=== PATIENT | male | born 1980 | race African-American/Black ===

== ENCOUNTER 2018-05-12 07:00 | Inpatient (IN) | payer SELFPAY ==
[2018-05-12] MEDS ORDERED: METHYLPREDNISOLONE INJ 125 MG/2 ML SDV ONE (07:14)
[2018-05-12] MEDS ORDERED: IPRATROPIUM/ALBUTEROL 0.5-2.5 MG/3 ML AMPUL NEB ONE ×3 (07:23)
[2018-05-12 07:41] LABS: ABSOLUTE EOSINOPHILS # (AUTO) 0.6 10^3/uL (0.0-0.6); ABSOLUTE MONOCYTES (AUTO) 0.6 10^3/uL (0.1-1.4); ABSOLUTE NEUT (AUTO) 2.5 10^3/uL (1.7-8.2); BASOPHILS % (AUTO) 0.8 % (0-2); EOSINOPHILS % (AUTO) 9.7 % (0-6); HEMATOCRIT 47.2 % (37.9-51.0); HEMOGLOBIN 15.9 g/dL (13.5-17.0); LYMPHOCYTES % (AUTO) 35.4 % (13-45); MEAN CORPUSCULAR HEMOGLOBIN 29.8 pg (27.0-33.4); MEAN CORPUSCULAR HGB CONC 33.7 g/dL (32.0-36.0); MEAN CORPUSCULAR VOLUME 89 fl (80-97); MONOCYTES % (AUTO) 10.1 % (3-13); PLATELET COUNT 218 10^3/uL (150-450); RED BLOOD COUNT 5.33 10^6/uL (4.35-5.55); RED CELL DISTRIBUTION WIDTH 13.7 % (11.5-14.0); TOTAL CELLS COUNTED % (AUTO) 100 %; WHITE BLOOD COUNT 5.7 10^3/uL (4.0-10.5)
[2018-05-12 08:04] LABS: ALANINE AMINOTRANSFERASE 20 U/L (21-72); ALKALINE PHOSPHATASE 52 U/L (38-126); ANION GAP 12 (5-19); ASPARTATE AMINO TRANSFERASE 54 U/L (17-59); BILIRUBIN,DIRECT 0.4 mg/dL (0.0-0.4); BILIRUBIN,TOTAL 0.6 mg/dL (0.2-1.3); BLOOD UREA NITROGEN 13 mg/dL (7-20); CALCIUM 9.6 mg/dL (8.4-10.2); CARBON DIOXIDE 26 mmol/L (22-30); CHLORIDE 108 mmol/L (98-107); GLUCOSE 91 mg/dL (75-110); POTASSIUM 4.4 mmol/L (3.6-5.0); SODIUM 145.6 mmol/L (137-145); TOTAL PROTEIN 8.3 g/dL (6.3-8.2)
[2018-05-12] MEDS ORDERED: ACETAMINOPHEN 325 MG TABLET PO ONE (08:10)
--- NOTE | 2018-05-12 08:13 | RADIOLOGY REPORT (SQ) ---
EXAM DESCRIPTION: CHEST SINGLE VIEW COMPLETED DATE/TIME: 05/12/2018 7:45 am REASON FOR STUDY: asthma COMPARISON: 04/02/2016 EXAM PARAMETERS: NUMBER OF VIEWS: One view. TECHNIQUE: Single frontal radiographic view of the chest acquired. RADIATION DOSE: NA LIMITATIONS: None. FINDINGS: LUNGS AND PLEURA: Mild hyperinflation of the lungs, unchanged finding. No opacities, mas ses or pneumothorax. No pleural effusion. MEDIASTINUM AND HILAR STRUCTURES: No masses. Contour normal. HEART AND VASCULAR STRUCTURES: Heart normal in size. Normal vasculature. BONES: No acute findings. HARDWARE: None in the chest. OTHER: No other significant finding. IMPRESSION: 1. No significant interval changes since the previous examination dated 04/02/2016. No acute findings. TECHNICAL DOCUMENTATION: JOB ID: [id number] [employer]- All Rights Reserved Reading location - IP/workstation name: [email or web address]
[2018-05-12] MEDS ORDERED: ALBUTEROL SULFATE 0.083% NEB 2.5 MG/3 ML AMPUL NEB ONE ×4 (08:21→12:41)
--- NOTE | 2018-05-12 11:32 | RADIOLOGY REPORT (SQ) ---
EXAM DESCRIPTION: CTA CHEST COMPLETED DATE/TIME: 05/12/2018 11:05 am REASON FOR STUDY: hypoxia, tachycardia COMPARISON: Chest films 05/12/2018, 04/02/2016, 01/25/2014 TECHNIQUE: CT scan of the chest performed using helical scanning technique with dynamic intravenous contrast injection. Images reviewed with lung, soft tissue and bone windows. Reconstructed coronal and sagittal MPR images reviewed. Additional 3 dimensional post-processing performed to develop Maximal Intensity Projection images (MT P). All images stored on PACS. All CT scanners at this facility use dose modulation, iterative reconstruction, and/or weight based d osing when appropriate to reduce radiation dose to as low as reasonably achievable (ALARA). [facility]: Dose Right [facility]: CareDose [facility]: Dose Right [facility]: Teradose 4D [facility]: [employer] CONTRAST TYPE AND DOSE: contrast/concentration: Isovue 350.00 mg/ml; Total Contrast Delivered: 68.0 ml; Total Saline Delivered: 103.0 ml Contrast bolus optimized for the pulmonary arteries and aorta. RENAL FUNCTION: None required. The patient is less than 50 years old. RADIATION DOSE: CT Rad equipment meets quality standard of care and radiation dose reduction techniq ues were employed. CTDIvol: 14.3 - 19.8 mGy. DLP: 599 mGy-cm. . LIMITATIONS: None. FINDINGS: LUNGS AND PLEURA: No masses, infiltrates, or pneumothorax. No pleural effusions or pleura l calcifications. AORTA AND GREAT VESSELS: No aneurysm or thoracic aortic dissection. HEART: No pericardial effusion. No significant coronary artery calcifications. PULMONARY ARTERIES: No emboli visualized in the main pulmonary arteries or the segmental branches. HILAR AND MEDIASTINAL STRUCTURES: No identified masses or abnormal nodes. HARDWARE: None in the chest. UPPER ABDOMEN: Question tiny bilateral intrarenal nonobstructive kidney stones. . Limited exam. THYROID AND OTHER SOFT TISSUES: No masses. No adenopathy. BONES: No acute or significant finding. 3D MIPS: Confirm above findings. OTHER: No other significant finding. IMPRESSION: NORMAL CTA OF THE CHEST. NO PULMONARY EMBOLI. COMMENT: Quality ID # [id number]: Final reports with documentation of one or more dose reduction techniques (e.g., Automated exposure control, adjustment of the mA and/or kV according to patient size, use of iterative reconstruction technique) TECHNICAL DOCUMENTATION: JOB ID: [id number])- All Rights Reserved Reading location - IP/workstation name: [email or web address]
--- NOTE | 2018-05-12 13:00 | ER Document Report ---
Entered by MELISSA HUGHES SCRIBE 05/12/18 0716 Acting as scribe for:LUIGI MATTHEWS DO ED Respiratory Problem - General Chief Complaint: Shortness Of Breath Stated Complaint: SOB Time Seen by Provider: 05/12/18 07:00 Notes: 38-year-old male who presents to the emergency department today with complaints of asthma exacerbation. Patient states he has had to be intubated in the past for asthma. Patient states that he began having difficulty breathing x1-2 weeks ago. Patient states his shortness of breath has progressed since onset to the point that the patient has been using his nebulizer about every 30 minutes at home. Patient states he has a slight cough but denies fevers. TRAVEL OUTSIDE OF THE [place] IN LAST 30 DAYS: No - Related Data Allergies/Adverse Reactions: venom-wasp [Wasp Venom] Allergy (Verified 05/12/18 07:01) cats Allergy (Uncoded 05/12/18 07:01) lactose intolerant Allergy (Uncoded 05/12/18 07:01) Past Medical History - General Information source: Patient - Social History Smoking Status: Current Every Day Smoker Cigarette use (# per day): Yes Frequency of alcohol use: Social Lives with: Family Family History: Reviewed & Not Pertinent Pulmonary Medical History: Reports: Hx Asthma - Immunizations Hx Diphtheria, Pertussis, Tetanus Vaccination: Yes Review of Systems - Review of Systems Constitutional: No symptoms reported EENT: No symptoms reported Cardiovascular: No symptoms reported Respiratory: See HPI, Short of breath, Wheezing Gastrointestinal: No symptoms reported Genitourinary: No symptoms reported Male Genitourinary: No symptoms reported Musculoskeletal: No symptoms reported Skin: No symptoms reported Hematologic/Lymphatic: No symptoms reported Neurological/Psychological: No symptoms reported -: Yes All other systems reviewed and negative Physical Exam - Vital signs Vitals: Resp BP Pulse Ox 23 H 119/86 H 94 05/12/18 08:57 05/12/18 08:57 05/12/18 08:57 - Notes Notes: PHYSICAL EXAM GENERAL: Alert, interacts well. Moderate distress. Pulse oximeter at bedside shows saturation of 93% with good waveform on room air, mild hypoxia per my interpretation. HEAD: Normocephalic, atraumatic. EYES: Pupils equal, round, and reactive to light. Extraocular movements intact. ENT: Oral mucosa moist, tongue midline. NECK: Full range of motion. Supple. Trachea midline. LUNGS: Diffuse expiratory wheezing bilaterally. Tripoding. Moderate respiratory distress. Decreased air movement throughout. HEART: Regular rate and rhythm. No murmurs, gallops, or rubs. ABDOMEN: Soft, non-tender. Non-distended. Bowel sounds present in all 4 quadrants. No guarding, rigidity, or rebound. EXTREMITIES: Moves all 4 extremities spontaneously. No edema, radial and dorsalis pedis pulses 2/4 bilaterally. No cyanosis. NEUROLOGICAL: Alert and oriented x3. Normal speech. PSYCH: Normal affect, normal mood. SKIN: Warm, dry, normal turgor. No rashes or lesions noted. Course - Re-evaluation Re-evalutation: 05/12/18 08:21 Patient is improved, no longer tripoding, still has some accessory muscle use for respirations, patient now has slight audible wheezing while just sitting there, there is diffuse expiratory wheezing with significantly improved air movement. Patient has received steroids and 3 breathing treatments, 3 more albuterol will be given, chest x-ray shows no significant interval change. 05/12/18 09:57 Wheezing has resolved. Patient saturating 90-92% on room air while sitting, hypoxic. Will order CTA. 05/12/18 12:46 CBC unremarkable, CMP unremarkable, chest x-ray shows no acute process. CTA of the chest is negative for PE or other acute finding. Patient was ambulated around the emergency department and now had an oxygen saturation of 94% while walking around the department. Approximately 20 minutes after he sat down walking around the emergency department patient then had a recurrence of his wheezing, is feeling worse, after recheck patient does indeed have more wheezing, he is no longer tripoding but he is returning to having some accessory muscle use. He is saturating 97% on room air, mildly tachypneic. Patient is going to be placed on BiPAP, given another breathing treatment. Patient was discussed with Dr. Ramirez for the hospitalist who accepted the patient to his service for admission on the telemetry care unit. Patient has also been given steroids. 05/12/18 17:15 - Vital Signs Vital signs: Temp Pulse Resp BP Pulse Ox 98.0 F 20 152/99 H 98 05/12/18 12:30 05/12/18 14:49 05/12/18 11:02 05/12/18 14:49 - Laboratory Result Diagrams: 05/12/18 07:15 05/12/18 07:15 Laboratory results interpreted by me: 05/12/18 05/12/18 07:15 07:15 Eosinophils % 9.7 H Sodium 145.6 H Chloride 108 H ALT 20 L Total Protein 8.3 H Critical Care Note - Critical Care Note Total time excluding time spent on procedures (mins): 65 Discharge - Discharge Clinical Impression: Acute respiratory failure with hypoxia Acute asthma exacerbation Qualifiers: Asthma severity: moderate Asthma persistence: persistent Qualified Code(s): J45.41 - Moderate persistent asthma with (acute) exacerbation Condition: Fair Disposition: ADMITTED INPATIENT Admitting Provider: Hospitalist - [facility] Unit Admitted: Telemetry I personally performed the services described in the documentation, reviewed and edited the documentation which was dictated to the scribe in my presence, and it accurately records my words and actions.
[2018-05-12] MEDS ORDERED: ONDANSETRON HCL INJ/PF 4 MG/2 ML SDV IV PRN (14:10)
[2018-05-12] MEDS ORDERED: LEVALBUTEROL HCL NEB 0.63 MG/3 ML AMPUL NEB PRN (14:10)
[2018-05-12] MEDS ORDERED: ACETAMINOPHEN 325 MG TABLET PO PRN (14:10)
[2018-05-12] MEDS ORDERED: HYDRALAZINE HCL INJ/PF 20 MG/1 ML SDV IV PRN (14:26)
--- NOTE | 2018-05-12 14:26 | PDOC H&P ---
History of Present Illness Admission Date/PCP: 05/12/18 13:10 Patient complains of: Shortness of breath and wheezing History of Present Illness: LUPE [place] is a 38 year old male history of asthma, hypertension came to the emergency room with worsening of shortness of breath. According to the family members patient is having the shortness of breath for the last several days he is using nebulizers and inhalers with increased frequency but is not helping him this morning shortness of breath wheezing getting even worse decided to came to the emergency room for further evaluation. In the emergency room he was evaluated and given a nebulizer treatments initially wheezing is resolved within half an hour wheezing came back again he was placed on BiPAP to give some rest of the lungs and medical consult was requested for admission. I went to talk to the patient and family members patient is complaining of shortness of breath wheezing. Complains of cold with coughing up greenish sputum. Denies any fevers denies any nausea vomiting diarrhea denies any headaches dizzy spells. Denies any rashes on the body. Past Medical History Cardiac Medical History: Reports: Hypertension Denies: Congestive Heart Failure, DVT, Myocardial Infarction, Hyperlipidema, Pulmonary Embolism Pulmonary Medical History: Reports: Asthma Denies: Chronic Obstructive Pulmonary Disease (COPD) Neurological Medical History: Denies: Seizures Endocrine Medical History: Denies: Diabetes Mellitus Type 1, Diabetes Mellitus Type 2, Hyperthyroidism, Hypothyroidism GI Medical History: Denies: Cirrhosis, Gastroesophageal Reflux Disease, Hepatitis Musculoskeltal Medical History: Denies: Arthritis Skin Medical History: Denies: Eczema, Psoriasis Psychiatric Medical History: Denies: Depression Past Surgical History Past Surgical History: Reports: Other - Removal of benign mass from the throat. Social History Lives with: Family Smoking Status: Current Every Day Smoker Frequency of Alcohol Use: Occasional Hx Recreational Drug Use: No Drugs: Marijuana Hx Prescription Drug Abuse: No - Advance Directive Resuscitation Status: Full Code Family History Family History: Reviewed & Not Pertinent Parental Family History Reviewed: Yes - Family history of asthma and hypertension. Children Family History Reviewed: Yes Sibling(s) Family History Reviewed.: Yes Medication/Allergy Allergies/Adverse Reactions: venom-wasp [Wasp Venom] Allergy (Verified 05/12/18 07:01) cats Allergy (Uncoded 05/12/18 07:01) lactose intolerant Allergy (Uncoded 05/12/18 07:01) Review of Systems Constitutional: ABSENT: fatigue, fever(s), headache(s), night sweats, weakness Eyes: ABSENT: visual disturbances Ears: ABSENT: hearing changes Nose, Mouth, and Throat: ABSENT: sore throat Cardiovascular: ABSENT: chest pain, dyspnea on exertion, edema, orthropnea, palpitations Respiratory: PRESENT: cough, dyspnea, sputum Gastrointestinal: ABSENT: abdominal pain, constipation, diarrhea, hematemesis, hematochezia, nausea, vomiting Musculoskeletal: ABSENT: joint swelling Neurological: ABSENT: abnormal gait, abnormal speech, confusion, dizziness, focal weakness, syncope Physical Exam Vital Signs: Temp Pulse Resp BP Pulse Ox 98.0 F 16 152/99 H 94 05/12/18 12:30 05/12/18 11:03 05/12/18 11:02 05/12/18 11:03 Intake & Output 05/11/18 05/12/18 05/13/18 06:59 06:59 06:59 Weight 68.039 kg General appearance: PRESENT: mild distress Eye exam: PRESENT: PERRLA Mouth exam: PRESENT: dry mucosa Neck exam: ABSENT: carotid bruit, JVD, lymphadenopathy, thyromegaly Respiratory exam: PRESENT: decreased breath sounds, wheezes Cardiovascular exam: PRESENT: tachycardia Pulses: PRESENT: normal dorsalis pedis pul GI/Abdominal exam: PRESENT: normal bowel sounds, soft. ABSENT: distended, guarding, mass, organolmegaly, rebound, tenderness Neurological exam: PRESENT: alert, awake, oriented to person, oriented to place, oriented to time, oriented to situation, CN II-XII grossly intact. ABSENT: motor sensory deficit Psychiatric exam: PRESENT: appropriate affect, normal mood. ABSENT: homicidal ideation, suicidal ideation Results Laboratory Results: 05/12/18 07:15 05/12/18 07:15 05/12/18 05/12/18 07:15 07:15 WBC 5.7 RBC 5.33 Hgb 15.9 Hct 47.2 MCV 89 MCH 29.8 MCHC 33.7 RDW 13.7 Plt Count 218 Seg Neutrophils % 44.0 Lymphocytes % 35.4 Monocytes % 10.1 Eosinophils % 9.7 H Basophils % 0.8 Absolute Neutrophils 2.5 Absolute Lymphocytes 2.0 Absolute Monocytes 0.6 Absolute Eosinophils 0.6 Absolute Basophils 0.0 Sodium 145.6 H Potassium 4.4 Chloride 108 H Carbon Dioxide 26 Anion Gap 12 BUN 13 Creatinine 1.20 Est GFR ( Amer) > 60 Est GFR (Non-Af Amer) > 60 Glucose 91 Calcium 9.6 Total Bilirubin 0.6 AST 54 ALT 20 L Alkaline Phosphatase 52 Total Protein 8.3 H Albumin 5.0 Impressions: Chest X-Ray 05/12/18 07:23 IMPRESSION: 1. No significant interval changes since the previous examination dated 04/02/2016. No acute findings. Chest/Abdomen CTA 05/12/18 09:56 IMPRESSION: NORMAL CTA OF THE CHEST. NO PULMONARY EMBOLI. Assessment & Plan - Diagnosis (1) Acute respiratory failure with hypoxia Is this a current diagnosis for this admission?: Yes Plan: 05/12/2018-patient is admitted with acute respiratory failure with hypoxia. In the emergency room he came in with shortness of breath tripoding using the accessory muscles for respiration and extensive wheezing. With nebulizer treatments pulse ox was improved to 90-92% on room air. CT was negative for PE. Medical consult was called for admission. Plan is to put him in telemetry. Started on IV Solu-Medrol 40 mg every 8 hours, Xopenex nebulizations ipratropium nebulizations. Nicotine patch was started. Patient is going to be on BiPAP as needed. We are going to do the ABG today ABG on daily basis. GI prophylaxis and DVT prophylaxis was started. History nicotine patch 21 mg daily. Started on levofloxacin 750 mg IV daily because the patient is complaining of cold with coughing up greenish sputum. CT of the chest was negative for pneumonia or PE. (2) Acute asthma exacerbation Qualifiers: Asthma severity: moderate Asthma persistence: persistent Qualified Code(s): J45.41 - Moderate persistent asthma with (acute) exacerbation Is this a current diagnosis for this admission?: Yes Plan: 05/12/2018 patient was admitted with acute asthma exacerbation, he tried to use th e nebulizers and inhalers with increased frequency at home without any help etc. came to the emergency room for further evaluation. As per the patient family uses albuterol inhaler and Symbicort at home. Plan is to put him on IV steroids 40 mg every 8 hours, ipratropium nebulizations and Xopenex nebulizations were started. Plan to do the ABG today. (3) Tobacco dependency Is this a current diagnosis for this admission?: Yes Plan: 05/12/2018 patient has a chronic history of tobacco smoking and also smokes weed. Smoking counseling and provided for more than 10 minutes strongly advised to quit smoking. Patient was advised to stop smoking weed. (4) Hypertension Is this a current diagnosis for this admission?: Yes Plan: 03/11/2019 patient has history of hypertension is noncompliant with his medications blood pressure today in the emergency room 152/99. Plan is to start him on lisinopril 10 mg p.o. twice daily. To be placed on a cardiac diet. - Time Time Spent: 50 to 70 Minutes Smoking Cessation Education: over 10 minutes Medications reviewed and adjusted accordingly: Yes Anticipated discharge: Home
[2018-05-12] MEDS: LEVOFLOXACIN 750 MG/D5W RTU 750 MG/150 ML RTUPB IV SCH (16:05)
[2018-05-12] MEDS: IPRATROPIUM/ALBUTEROL 0.5-2.5 MG/3 ML AMPUL NEB PRN ×2 (16:09→23:50)
[2018-05-12 16:15] LABS: CREATINE KINASE MB 4.49 ng/mL (<4.55)
[2018-05-12 16:22] LABS: TROPONIN I < 0.012 ng/mL
[2018-05-12] MEDS ORDERED: HYDRALAZINE HCL INJ/PF 20 MG/1 ML SDV ONE ×2 (17:49→18:21)
[2018-05-12] MEDS: HYDRALAZINE HCL INJ/PF 20 MG/1 ML SDV IV PRN (18:34)
[2018-05-12] MEDS ORDERED: ACETAMINOPHEN 325 MG TABLET ONE (19:06)
[2018-05-12] MEDS: FAMOTIDINE 20 MG TABLET PO SCH (21:54)
[2018-05-12] MEDS: LISINOPRIL 10 MG TABLET PO SCH (21:54)
[2018-05-12] MEDS: DOCUSATE SODIUM 100 MG CAPSULE PO SCH (21:54)
[2018-05-12] MEDS: METHYLPREDNISOLONE INJ 40 MG/1 ML SDV IV SCH (21:55)
[2018-05-12] MEDS ORDERED: TEMAZEPAM 7.5 MG CAPSULE PO SCH (22:00)
[2018-05-12 22:08] LABS: CREATINE KINASE MB 5.84 ng/mL (<4.55)
[2018-05-12 22:11] LABS: TROPONIN I < 0.012 ng/mL
[2018-05-13] MEDS: HYDRALAZINE HCL INJ/PF 20 MG/1 ML SDV IV PRN (02:26)
[2018-05-13 04:30] LABS: ABSOLUTE LYMPHOCYTES (AUTO) 0.8 10^3/uL (0.5-4.7); ABSOLUTE MONOCYTES (AUTO) 0.4 10^3/uL (0.1-1.4); ABSOLUTE NEUT (AUTO) 9.7 10^3/uL (1.7-8.2); BASOPHILS % (AUTO) 0.1 % (0-2); HEMATOCRIT 44.8 % (37.9-51.0); HEMOGLOBIN 15.3 g/dL (13.5-17.0); LYMPHOCYTES % (AUTO) 7.3 % (13-45); MEAN CORPUSCULAR HEMOGLOBIN 29.9 pg (27.0-33.4); MEAN CORPUSCULAR HGB CONC 34.2 g/dL (32.0-36.0); MEAN CORPUSCULAR VOLUME 88 fl (80-97); MONOCYTES % (AUTO) 3.4 % (3-13); PLATELET COUNT 232 10^3/uL (150-450); RED BLOOD COUNT 5.12 10^6/uL (4.35-5.55); RED CELL DISTRIBUTION WIDTH 13.9 % (11.5-14.0); SEGMENTED NEUTROPHILS % (AUTO) 89.2 % (42-78); TOTAL CELLS COUNTED % (AUTO) 100 %; WHITE BLOOD COUNT 10.9 10^3/uL (4.0-10.5)
[2018-05-13 04:34] LABS: INTERNATIONAL RATION (INR) 0.99; PROTHROMBIN TIME 13.6 SEC (11.4-15.4)
[2018-05-13 04:51] LABS: ALANINE AMINOTRANSFERASE 33 U/L (21-72); ALBUMIN 4.9 g/dL (3.5-5.0); ALKALINE PHOSPHATASE 53 U/L (38-126); ANION GAP 12 (5-19); ASPARTATE AMINO TRANSFERASE 29 U/L (17-59); BILIRUBIN,DIRECT 0.2 mg/dL (0.0-0.4); BILIRUBIN,TOTAL 0.5 mg/dL (0.2-1.3); BLOOD UREA NITROGEN 14 mg/dL (7-20); CALCIUM 10.2 mg/dL (8.4-10.2); CARBON DIOXIDE 25 mmol/L (22-30); CHLORIDE 105 mmol/L (98-107); CHOLESTEROL 217.64 mg/dL (0-200); CREATINE KINASE 440 U/L (55-170); GLUCOSE 114 mg/dL (75-110); POTASSIUM 4.3 mmol/L (3.6-5.0); SODIUM 141.5 mmol/L (137-145); TOTAL PROTEIN 7.6 g/dL (6.3-8.2); TRIGLYCERIDES 34 mg/dL (<150)
[2018-05-13 05:02] LABS: DIRECT LDL 115 mg/dL (<100)
[2018-05-13 05:03] LABS: CREATINE KINASE MB 6.82 ng/mL (<4.55); NT PRO BNP 39 pg/mL (<125)
[2018-05-13 05:12] LABS: TROPONIN I < 0.012 ng/mL
[2018-05-13 06:15] LABS: ARTERIAL BLOOD BASE EXCESS 0.7 mmol/L; ARTERIAL BLOOD FIO2 30%; ARTERIAL BLOOD H2CO3 1.24 mmol/L (1.05-1.35); ARTERIAL BLOOD HCO3 25.4 mmol/L (20-24); ARTERIAL BLOOD PCO2 41.2 mmHg (35-45); ARTERIAL BLOOD PH 7.41 (7.35-7.45); ARTERIAL BLOOD PO2 91.3 mmHg (80-100); ARTERIAL BLOOD TOTAL CO2 26.7 mmol/L (23-27)
[2018-05-13] MEDS: METHYLPREDNISOLONE INJ 40 MG/1 ML SDV IV SCH ×2 (06:19→15:56)
[2018-05-13] MEDS ORDERED: ENOXAPARIN SODIUM INJ 40 MG/0.4 ML DISP.SYRIN SUBCUT SCH (10:00)
[2018-05-13] MEDS ORDERED: NICOTINE 21 MG/24 HR PATCH.TD24 TD SCH (10:00)
[2018-05-13] MEDS: IPRATROPIUM/ALBUTEROL 0.5-2.5 MG/3 ML AMPUL NEB PRN (11:24)
[2018-05-13] MEDS: LISINOPRIL 10 MG TABLET PO SCH (11:36)
[2018-05-13] MEDS: FAMOTIDINE 20 MG TABLET PO SCH (11:36)
[2018-05-13] MEDS: LEVOFLOXACIN 750 MG/D5W RTU 750 MG/150 ML RTUPB IV SCH (11:37)
[2018-05-13] MEDS: DOCUSATE SODIUM 100 MG CAPSULE PO SCH (11:37)
[2018-05-13 17:08] VITALS: BP 135/87
--- NOTE | 2018-05-13 17:33 | PDOC DISCHARGE SUMMARY ---
General - Admit/Disc Date/PCP Admission Date/Primary Care Provider: 05/12/18 13:10 Discharge Date: 05/13/18 - Discharge Diagnosis (1) Acute respiratory failure with hypoxia Is this a current diagnosis for this admission?: Yes Summary: 05/12/2018-patient is admitted with acute respiratory failure with hypoxia. In the emergency room he came in with shortness of breath tripoding using the accessory muscles for respiration and extensive wheezing. With nebulizer treatments pulse ox was improved to 90-92% on room air. CT was negative for PE. Medical consult was called for admission. Plan is to put him in telemetry. Started on IV Solu-Medrol 40 mg every 8 hours, Xopenex nebulizations ipratropium nebulizations. Nicotine patch was started. Patient is going to be on BiPAP as needed. We are going to do the ABG today ABG on daily basis. GI prophylaxis and DVT prophylaxis was started. History nicotine patch 21 mg daily. Started on levofloxacin 750 mg IV daily because the patient is complaining of cold with coughing up greenish sputum. CT of the chest was negative for pneumonia or PE. 05/[id number]-zorz-old male admitted with acute respiratory failure with hypoxia. It is most likely secondary to asthma exacerbation which may be triggered by upper respiratory tract infection. Patient was a came and complained that he is coughing up greenish sputum. Cultures came back positive for gram-positive cocci in clusters. Patient is presently on levofloxacin 500 mg p.o. daily. Patient states he is feeling much better expressing desire to go home. Explained to him that he need to stay at least one day to get continuous IV steroid therapy and antibiotic therapy but patient understood and verbalized response and wants to go home today. Nurse Chavez tried to convince him to stay but the patient preferred to go home. (2) Acute asthma exacerbation Is this a current diagnosis for this admission?: Yes Summary: 05/12/2018 patient was admitted with acute asthma exacerbation, he tried to use the nebulizers and inhalers with increased frequency at home without any help etc. came to the emergency room for further evaluation. As per the patient family uses albuterol inhaler and Symbicort at home. Plan is to put him on IV steroids 40 mg every 8 hours, ipratropium nebulizations and Xopenex nebul izations were started. Plan to do the ABG today. 05/[id number]-zhjp-old male admitted for acute asthma exacerbation leading to acute respiratory failure with hypoxia. Exacerbation of asthma most likely secondary to upper respiratory tract infection. Nurse logan and me tried to convince him to stay for at least another day but the patient prefers to go home today on antibiotic therapy. Patient understood and verbalized response that without completing the medical therapy there is a high risk of asthma exacerbation and he have to come back to the hospital for further management ,he understood the risks and still prefers to go home. (3) Tobacco dependency Is this a current diagnosis for this admission?: Yes Summary: [id number]-patient is a chronic smoker again smoking counseling was provided for more than 10 minutes and nicotine patches were offered but he said he cannot afford them. Strongly advised him to quit smoking. (4) Hypertension Is this a current diagnosis for this admission?: Yes Summary: 05/12/2018 patient has history of hypertension is noncompliant with his medications blood pressure today in the emergency room 152/99. Plan is to start him on lisinopril 10 mg p.o. twice daily. To be placed on a cardiac diet. 05/13/2018-patient has history of hypertension noncompliant with medications blood pressures are elevated at the time of admission he was started on lisinopril 10 mg p.o. twice daily blood pressure today he is 119/72. I gave him the prescriptions for lisinopril and hydrochlorothiazide. - Additional Information Resuscitation Status: Full Code Discharge Diet: As Tolerated Discharge Activity: Activity As Tolerated Prescriptions: Albuterol Sulfate [Ventolin 0.083% Neb 2.5 mg/3 mL Ampul] 1 vial NEB RTQ4HP PRN #30 vial.neb PRN Reason: For Wheezing Albuterol Sulfate [Ventolin Hfa 8 gm Mdi (1 Mdi/ER Disp)] 2 puff IH Q4HP PRN #1 inhaler PRN Reason: For Wheezing Budesonide/Formoterol Fumarate [Symbicort Hfa 160-4.5 Mcg Inhaler 6 gm] 2 puff IH Q12 #1 inhaler Hydrochlorothiazide [Hydrodiuril 25 mg Tablet] 25 mg PO DAILY #30 tablet Lisinopril [Prinivil 10 mg Tablet] 10 mg PO Q12 #60 tablet Prednisone 10 mg PO BID #10 tab.ds.pk Home Medications: Albuterol Sulfate [Ventolin 0.083% Neb 2.5 mg/3 mL Ampul] 1 vial NEB RTQ4HP PRN #30 vial.neb 05/13/18 Albuterol Sulfate [Ventolin Hfa 8 gm Mdi (1 Mdi/ER Disp)] 2 puff IH Q4HP PRN #1 inhaler 05/13/18 Budesonide/Formoterol Fumarate [Symbicort Hfa 160-4.5 Mcg Inhaler 6 gm] 2 puff IH Q12 #1 inhaler 05/13/18 Hydrochlorothiazide [Hydrodiuril 25 mg Tablet] 25 mg PO DAILY #30 tablet 05/13/18 Lisinopril [Prinivil 10 mg Tablet] 10 mg PO Q12 #60 tablet 05/13/18 Prednisone 10 mg PO BID #10 tab.ds.pk 05/13/18 History of Present Illness History of Present Illness: LU[place] is a 38 year old male history of asthma, hypertension came to the emergency room with worsening of shortness of breath. According to the family members patient is having the shortness of breath for the last several days he is using nebulizers and inhalers with increased frequency but is not helping him this morning shortness of breath wheezing getting even worse decided to came to the emergency room for further evaluation. In the emergency room he was evaluated and given a nebulizer treatments initially wheezing is resolved within half an hour wheezing came back again he was placed on BiPAP to give some rest of the lungs and medical consult was requested for admission. I went to talk to the patient and family members patient is complaining of shortness of breath wheezing. Complains of cold with coughing up greenish sputum. Denies any fevers denies any nausea vomiting diarrhea denies any headaches dizzy spells. Denies any rashes on the body. Physical Exam Vital Signs: Temp Pulse Resp BP Pulse Ox 97.9 F 106 H 16 135/87 H 96 05/13/18 15:10 05/13/18 15:10 05/13/18 15:10 05/13/18 15:10 05/13/18 15:10 Intake & Output 05/12/18 05/13/18 05/14/18 06:59 06:59 06:59 Intake Total 150 400 Balance 150 400 Weight 68 kg General appearance: PRESENT: no acute distress Head exam: PRESENT: atraumatic Eye exam: PRESENT: PERRLA Mouth exam: PRESENT: dry mucosa Respiratory exam: PRESENT: decreased breath sounds, wheezes Cardiovascular exam: PRESENT: tachycardia GI/Abdominal exam: PRESENT: normal bowel sounds, soft. ABSENT: distended, guarding, mass, organolmegaly, rebound, tenderness Extremities exam: PRESENT: full ROM. ABSENT: calf tenderness, clubbing, pedal edema Neurological exam: PRESENT: alert, awake, oriented to person, oriented to place, oriented to time, oriented to situation, CN II-XII grossly intact. ABSENT: motor sensory deficit Psychiatric exam: PRESENT: appropriate affect, normal mood. ABSENT: homicidal ideation, suicidal ideation Results Laboratory Results: 05/13/18 03:45 05/13/18 03:45 05/13/18 05/13/18 05/13/18 03:45 03:45 03:45 WBC 10.9 H RBC 5.12 Hgb 15.3 Hct 44.8 MCV 88 MCH 29.9 MCHC 34.2 RDW 13.9 Plt Count 232 Seg Neutrophils % 89.2 H Lymphocytes % 7.3 L Monocytes % 3.4 Eosinophils % 0.0 Basophils % 0.1 Absolute Neutrophils 9.7 H Absolute Lymphocytes 0.8 Absolute Monocytes 0.4 Absolute Eosinophils 0.0 Absolute Basophils 0.0 Carbonic Acid HCO3/H2CO3 Ratio ABG pH ABG pCO2 ABG pO2 ABG HCO3 ABG O2 Saturation ABG Base Excess FiO2 Sodium 141.5 Potassium 4.3 Chloride 105 Carbon Dioxide 25 Anion Gap 12 BUN 14 Creatinine 1.03 Est GFR ( Amer) > 60 Est GFR (Non-Af Amer) > 60 Glucose 114 H Calcium 10.2 Magnesium 2.0 Total Bilirubin 0.5 AST 29 ALT 33 Alkaline Phosphatase 53 Total Protein 7.6 Albumin 4.9 Triglycerides 34 Cholesterol 217.64 H LDL Cholesterol Direct 115 H VLDL Cholesterol 7.0 L HDL Cholesterol 83 TSH 0.50 05/13/18 05:50 WBC RBC Hgb Hct MCV MCH MCHC RDW Plt Count Seg Neutrophils % Lymphocytes % Monocytes % Eosinophils % Basophils % Absolute Neutrophils Absolute Lymphocytes Absolute Monocytes Absolute Eosinophils Absolute Basophils Carbonic Acid 1.24 HCO3/H2CO3 Ratio 20:1 ABG pH 7.41 ABG pCO2 41.2 ABG pO2 91.3 ABG HCO3 25.4 H ABG O2 Saturation 97.0 ABG Base Excess 0.7 FiO2 30% Sodium Potassium Chloride Carbon Dioxide Anion Gap BUN Creatinine Est GFR ( Amer) Est GFR (Non-Af Amer) Glucose Calcium Magnesium Total Bilirubin AST ALT Alkaline Phosphatase Total Protein Albumin Triglycerides Cholesterol LDL Cholesterol Direct VLDL Cholesterol HDL Cholesterol TSH 05/12/18 05/12/18 05/12/18 15:30 15:30 21:20 Creatine Kinase 443 H 370 H CK-MB (CK-2) 4.49 Troponin I < 0.012 NT-Pro-B Natriuret Pep 05/12/18 05/13/18 05/13/18 21:20 03:45 03:45 Creatine Kinase 440 H CK-MB (CK-2) 5.84 H 6.82 H Troponin I < 0.012 < 0.012 NT-Pro-B Natriuret Pep 39 Impressions: Chest X-Ray 05/12/18 07:23 IMPRESSION: 1. No significant interval changes since the previous examination dated 04/02/2016. No acute findings. Chest/Abdomen CTA 05/12/18 09:56 IMPRESSION: NORMAL CTA OF THE CHEST. NO PULMONARY EMBOLI. Qualifiers - * PATIENT BEING DISCHARGED WITH ANY OF THE FOLLOWING DIAGNOSIS: No VTE patient discharged on overlapping Therapy?: No
== END 2018-05-13 19:20 | disposition home or self-care (01) | DRG 202 ==
LOC: ER 07:00 → EH 13:10 → 5 19:50
PROVIDERS: ADMIT Internal Medicine; ATTEND Internal Medicine
PROC: 5A09357 Assistance with Respiratory Ventilation, Less than 24 Consecutive Hours, Continuous Positive Airway Pressure (ICD-10-PCS; principal; 2018-05-12)
PROC: 3E0F3GC Introduction of Other Therapeutic Substance into Respiratory Tract, Percutaneous Approach (ICD-10-PCS; 2018-05-12)
DX: J45.41 Moderate persistent asthma with (acute) exacerbation (principal); J96.01 Acute respiratory failure with hypoxia; I10 Essential (primary) hypertension; J06.9 Acute upper respiratory infection, unspecified; F17.210 Nicotine dependence, cigarettes, uncomplicated; Z91.038 Other insect allergy status; Z91.011 Allergy to milk products; Z91.09 Other allergy status, other than to drugs and biological substances
CPT/HCPCS: 36415; 71045; 71275; 80053; 80061; 82550; 82553; 82803; 83036; 83735; 83880; 84443; 84484; 85025; 85610; 87070; 87205; 94640; 94660; 94667; 94799; 96374; 99291; J0360; J1650; J1956; J2920; J2930; J3490; J7614; J7620

== ENCOUNTER 2018-07-15 08:47 | Inpatient (IN) | payer SELFPAY ==
[2018-07-15] MEDS ORDERED: PROPOFOL 1,000 MG/100 ML INFUS..BTL IV ONE (08:54)
[2018-07-15] MEDS ORDERED: VECURONIUM BROMIDE INJ 10 MG VIAL IV ONE ×2 (08:57→09:04)
[2018-07-15] MEDS ORDERED: PROPOFOL INJ 200 MG/20 ML VIAL IV ONE (09:04)
[2018-07-15] MEDS ORDERED: PROPOFOL 1,000 MG/100 ML INFUS..BTL IV PRN (09:04)
--- NOTE | 2018-07-15 09:04 | ER Document Report ---
ED Respiratory Problem - General Stated Complaint: RESPITORY DISTRESS Time Seen by Provider: 07/15/18 09:02 Notes: 38-year-old male brought in for respiratory failure. Long-standing history of severe asthma. EMS stated that patient was becoming very lethargic and very hypoxic. Patient was RSI'd in the field with a 7 oh ET tube and ketamine as well as given Solu-Medrol, magnesium. Patient seen immediately on arrival. Patient was being ventilated via bag to the ET tube. There were breath sounds bilaterally. Oxygen saturations were 99%. Large amount of wheezing noted. TRAVEL OUTSIDE OF THE [place] IN LAST 30 DAYS: No - HPI Patient complains to provider of: Short of breath Onset: Just prior to arrival Duration: Continuous Short of Breath: Severe EMS treatments: Bronchodilators, Epinephrine, Oxygen, Solumedrol - Related Data Allergies/Adverse Reactions: venom-wasp [Wasp Venom] Allergy (Verified 05/12/18 21:44) cats Allergy (Uncoded 05/12/18 21:44) lactose intolerant Allergy (Uncoded 05/12/18 21:44) Past Medical History - General Information source: Emergency Med Personnel, [facility] Records Cannot obtain history due to: Intubated - Social History Smoking Status: Unknown if Ever Smoked Family History: Reviewed & Not Pertinent - Past Medical History Cardiac Medical History: Reports: Hx Hypertension Denies: Hx Congestive Heart Failure, Hx DVT, Hx Heart Attack, Hx Hypercholesterolemia, Hx Pulmonary Embolism Pulmonary Medical History: Reports: Hx Asthma Denies: Hx COPD Neurological Medical History: Denies: Hx Seizures Endocrine Medical History: Denies: Hx Diabetes Mellitus Type 1, Hx Diabetes Mellitus Type 2, Hx Hyperthyroidism, Hx Hypothyroidism Renal/ Medical History: Denies: Hx Peritoneal Dialysis GI Medical History: Denies: Hx Cirrhosis, Hx Gastroesophageal Reflux Disease, Hx Hepatitis Musculoskeletal Medical History: Denies Hx Arthritis Skin Medical History: Denies Hx Eczema, Denies Hx Psoriasis Psychiatric Medical History: Denies: Hx Depression Infectious Medical History: Denies: Hx Hepatitis Past Surgical History: Reports: Other - Removal of benign mass from the throat. - Immunizations Hx Diphtheria, Pertussis, Tetanus Vaccination: Yes Review of Systems - Review of Systems -: Yes ROS unobtainable due to patient's medical condition Physical Exam - Vital signs Interpretation: Hypertensive, Tachycardic - Notes Notes: sedated and intubated - General General appearance: Unresponsive - HEENT Head: Normocephalic, Atraumatic Eyes: Normal Pupils: PERRL Notes: There is a 7.0 oral endotracheal tube in the mouth. Small amount of blood at the lip. - Respiratory Breath sounds: Decreased air movement, Wheezing Chest palpation: Normal Notes: Patient being ventilated with bag - Cardiovascular Rhythm: Tachycardia Heart sounds: Normal auscultation Murmur: No - Abdominal Inspection: Normal Distension: No distension Bowel sounds: Normal Organomegaly: No organomegaly - Back Back: Normal. No: Deformity/step-off - Extremities General upper extremity: Normal inspection, Normal color, Normal temperature General lower extremity: Normal inspection, Normal color, Normal temperature. No: Paula's sign - Neurological Neuro grossly intact: Yes Ray Coma Scale Eye Opening: None Tierney Coma Scale Verbal: None Ray Coma Scale Motor: None Tierney Coma Scale Total: 3 - Skin Skin Temperature: Warm Skin Moisture: Dry Skin Color: Normal Course - Re-evaluation Re-evalutation: 07/15/18 10:47 Patient seen immediately on arrival. Patient was ventilating quite well. The tube was secured at the bedside by respiratory therapist and placed on a ventilator. Instructions were given to prolonged expiratory phase as I believe patient was beginning to have some breath stacking. Chest x-ray was performed. Chest x-ray showed barely visible amount of endotracheal tube on the AP view of the chest x-ray. This was concerning for the tube not being deep enough. The airway cart was prepped and the glide scope was at the bedside. Respiratory was paged. All proper pre-airway manipulation guidelines were in place in the event there was any emergencies. After all personnel and equipment was available the glide scope was used to advance down along the base of the tongue until the endotracheal tube that was already present could be visualized. It was apparent at that time that the endotracheal tube was inflated and a supraglottic fashion. It was apparent that this tube needed to be properly inserted through the vocal cords. Patient was preoxygenated already on the ventilator at 100%. ABG showed oxygen levels actually super oxygenated. The balloon was deflated quickly a rigid stylette was placed down the endotracheal tube until it was visualized coming out of the end of the endotracheal tube. The very tiny and sclerotic cords were visualized. The stylette was gently inserted through the vocal cords and then the 7.0 endotracheal tube was advanced over the stylette until the balloon and was no longer visible indicating that the tube was through the cords. The balloon was reinserted and the patient was ventilated. Breath sounds present bilaterally. Repeat chest x-ray ordered which showed sati sfactory placement of the tube. During this difficult airway patient did have a brief term of hypoxia with his oxygen saturations dropping to around 60% but was immediately brought right back up to 100% and at no time was he ever bradycardic. Hospitalist was in the room during the airway procedure as well. At this time patient remained stable on the ventilator. We have sedated him with propofol and paralyzed him with vecuronium. Will admit to the ICU at this time. Laboratory 07/15/18 07/15/18 07/15/18 09:01 09:01 09:01 WBC 13.5 H RBC 5.08 Hgb 15.1 Hct 45.1 MCV 89 MCH 29.8 MCHC 33.5 RDW 14.1 H Plt Count 248 Seg Neutrophils % 77.0 Lymphocytes % 15.2 Monocytes % 4.3 Eosinophils % 2.9 Basophils % 0.6 Absolute Neutrophils 10.4 H Absolute Lymphocytes 2.1 Absolute Monocytes 0.6 Absolute Eosinophils 0.4 Absolute Basophils 0.1 PT INR APTT Carbonic Acid HCO3/H2CO3 Ratio ABG pH ABG pCO2 ABG pO2 ABG HCO3 ABG Total CO2 ABG O2 Saturation ABG Base Excess FiO2 Sodium 142.8 Potassium 4.1 Chloride 103 Carbon Dioxide 29 Anion Gap 11 BUN 16 Creatinine 1.27 H Est GFR ( Amer) > 60 Est GFR (Non-Af Amer) > 60 Glucose 168 H Lactic Acid 1.2 Calcium 9.6 Total Bilirubin 0.3 Direct Bilirubin 0.2 Neonat Total Bilirubin Not Reportable Neonat Direct Bilirubin Not Reportable Neonat Indirect Bili Not Reportable AST 27 ALT 32 Alkaline Phosphatase 54 Creatine Kinase 364 H CK-MB (CK-2) Troponin I Total Protein 7.7 Albumin 4.5 07/15/18 07/15/18 07/15/18 09:01 09:01 09:01 WBC RBC Hgb Hct MCV MCH MCHC RDW Plt Count Seg Neutrophils % Lymphocytes % Monocytes % Eosinophils % Basophils % Absolute Neutrophils Absolute Lymphocytes Absolute Monocytes Absolute Eosinophils Absolute Basophils PT 13.1 INR 0.94 APTT 28.1 Carbonic Acid 2.93 H HCO3/H2CO3 Ratio 9:1 ABG pH 7.07 L* ABG pCO2 97.3 H* ABG pO2 514.2 H ABG HCO3 27.7 H ABG Total CO2 30.7 H ABG O2 Saturation 99.8 H ABG Base Excess -5.5 FiO2 15L Sodium Potassium Chloride Carbon Dioxide Anion Gap BUN Creatinine Est GFR ( Amer) Est GFR (Non-Af Amer) Glucose Lactic Acid Calcium Total Bilirubin Direct Bilirubin Neonat Total Bilirubin Neonat Direct Bilirubin Neonat Indirect Bili AST ALT Alkaline Phosphatase Creatine Kinase CK-MB (CK-2) 3.66 Troponin I < 0.012 Total Protein Albumin Chest X-Ray 07/15/18 09:54 IMPRESSION: SATISFACTORY POSITION OF THE ENDOTRACHEAL TUBE. NO ACUTE RADIOGRAPHIC FINDING IN THE CHEST. KUB X-Ray 07/15/18 10:00 IMPRESSION: THE TIP OF THE NASOGASTRIC TUBE IN THE STOMACH. NO RADIOGRAPHIC EVIDENCE FOR ACUTE ABDOMINAL DISEASE. - Laboratory Result Diagrams: 07/15/18 09:01 07/15/18 09:01 Laboratory results interpreted by me: 07/15/18 07/15/18 07/15/18 09:01 09:01 09:01 WBC 13.5 H RDW 14.1 H Absolute Neutrophils 10.4 H Carbonic Acid 2.93 H ABG pH 7.07 L* ABG pCO2 97.3 H* ABG pO2 514.2 H ABG HCO3 27.7 H ABG Total CO2 30.7 H ABG O2 Saturation 99.8 H Creatinine 1.27 H Glucose 168 H Creatine Kinase 364 H - EKG Interpretation by Me EKG shows normal: [place], Intervals, QRS Complexes, ST-T Waves Rate: Tachycardia Procedures - Intubation Orotracheal Airway evaluation: Normal anatomy Mallampati Classification: Class 1 Medications: Diprivan, Vecuronium Intubation method: Orotracheal Blade type: Sharyn Blade size: 3 Equipment used: Glidescope ETT size: 7.0 ETT secured at: Teeth ETT secured at (cm): 23 Breath Sounds after Intubation: Equal End tidal CO2 confirmed: Yes Ventilator settings: SIMV Post Intubation Xray: Yes Intubation Complications: Other - Existing tube was placed by EMS. Visualization with the glide scope perform as patient was having difficulty on the vent. It was observed that the existing endotracheal tube was supraglottic with the balloon inflated. There was a large amount of blood at the supraglottic area. The balloon was deflated and a very small, scarred area of the glottis and vocal cords were seen. The stylette was placed in the tube after disconnecting patient from the ventilator. The stylette was advanced until it was exiting the end of the endotracheal tube. This was visualized with a glide scope. The stylette was placed through the vocal cords similar to the way of booge airway device would be used. The endotracheal tube was since advanced over the stylette but the endotracheal tube would not easily advanced. With much difficulty the endotracheal tube was able to be advanced through the cords. Patient was easily ventilated after that point and oxygen saturations began to rise with equal breath sounds bilaterally. Repeat chest x-ray performed which showed good placement of the tube. Critical Care Note - Critical Care Note Total time excluding time spent on procedures (mins): 60 Comments: Status asthmaticus, consultation with specialist, vent management Discharge - Discharge Clinical Impression: Status asthmaticus Qualifiers: Asthma severity: severe Asthma persistence: persistent Qualified Code(s): J45.52 - Severe persistent asthma with status asthmaticus Condition: Fair Disposition: ADMITTED INPATIENT Admitting Provider: Abhijeet (Hospitalist) Unit Admitted: ICU
[2018-07-15 09:18] LABS: ABSOLUTE BASOPHILS # (AUTO) 0.1 10^3/uL (0.0-0.2); ABSOLUTE EOSINOPHILS # (AUTO) 0.4 10^3/uL (0.0-0.6); ABSOLUTE LYMPHOCYTES (AUTO) 2.1 10^3/uL (0.5-4.7); ABSOLUTE MONOCYTES (AUTO) 0.6 10^3/uL (0.1-1.4); ABSOLUTE NEUT (AUTO) 10.4 10^3/uL (1.7-8.2); BASOPHILS % (AUTO) 0.6 % (0-2); EOSINOPHILS % (AUTO) 2.9 % (0-6); HEMATOCRIT 45.1 % (37.9-51.0); HEMOGLOBIN 15.1 g/dL (13.5-17.0); LYMPHOCYTES % (AUTO) 15.2 % (13-45); MEAN CORPUSCULAR HEMOGLOBIN 29.8 pg (27.0-33.4); MEAN CORPUSCULAR HGB CONC 33.5 g/dL (32.0-36.0); MEAN CORPUSCULAR VOLUME 89 fl (80-97); MONOCYTES % (AUTO) 4.3 % (3-13); PLATELET COUNT 248 10^3/uL (150-450); RED BLOOD COUNT 5.08 10^6/uL (4.35-5.55); RED CELL DISTRIBUTION WIDTH 14.1 % (11.5-14.0); TOTAL CELLS COUNTED % (AUTO) 100 %; WHITE BLOOD COUNT 13.5 10^3/uL (4.0-10.5)
[2018-07-15 09:19] LABS: ARTERIAL BLOOD BASE EXCESS -5.5 mmol/L; ARTERIAL BLOOD H2CO3 2.93 mmol/L (1.05-1.35); ARTERIAL BLOOD HCO3 27.7 mmol/L (20-24); ARTERIAL BLOOD O2 SATURATION 99.8 % (94-98); ARTERIAL BLOOD PO2 514.2 mmHg (80-100); ARTERIAL BLOOD TOTAL CO2 30.7 mmol/L (23-27)
[2018-07-15 09:20] LABS: ARTERIAL BLOOD FIO2 15L
[2018-07-15 09:22] LABS: ARTERIAL BLOOD PCO2 97.3 mmHg (35-45); ARTERIAL BLOOD PH 7.07 (7.35-7.45)
[2018-07-15 09:27] LABS: INTERNATIONAL RATION (INR) 0.94; PARTIAL THROMBOPLASTIN TIME 28.1 SEC (23.5-35.8); PROTHROMBIN TIME 13.1 SEC (11.4-15.4)
[2018-07-15] MEDS ORDERED: IPRATROPIUM/ALBUTEROL 0.5-2.5 MG/3 ML AMPUL NEB ONE (09:28)
[2018-07-15] MEDS: IPRATROPIUM/ALBUTEROL 0.5-2.5 MG/3 ML AMPUL NEB PRN ×2 (09:30→20:40)
--- NOTE | 2018-07-15 09:34 | RADIOLOGY REPORT (SQ) ---
EXAM DESCRIPTION: CHEST SINGLE VIEW COMPLETED DATE/TIME: 07/15/2018 9:17 am REASON FOR STUDY: sob COMPARISON: 05/12/2018. EXAM PARAMETERS: NUMBER OF VIEWS: One view. TECHNIQUE: Single frontal radiographic view of the chest acquired. RADIATION DOSE: NA LIMITATIONS: None. FINDINGS: LUNGS AND PLEURA: No opacities, masses or pneumothorax. No pleural effusion. MEDIASTINUM AND HILAR STRUCTURES: No masses. Contour normal. HEART AND VASCULAR STRUCTURES: Heart normal in size. Normal vasculature. BONES: No acute findings. HARDWARE: Nasogastric tube with the tip in the stomach. OTHER: No other significant finding. IMPRESSION: NO ACUTE RADIOGRAPHIC FINDING IN THE CHEST. A NASOGASTRIC TUBE IS PRESENT WITH THE TIP IN STOMACH. TECHNICAL DOCUMENTATION: JOB ID: [id number] [employer]- All Rights Reserved Reading location - IP/workstation name: [email or web address]
[2018-07-15 09:36] LABS: ALANINE AMINOTRANSFERASE 32 U/L (21-72); ALBUMIN 4.5 g/dL (3.5-5.0); ALKALINE PHOSPHATASE 54 U/L (38-126); ANION GAP 11 (5-19); ASPARTATE AMINO TRANSFERASE 27 U/L (17-59); BILIRUBIN,DIRECT 0.2 mg/dL (0.0-0.4); BILIRUBIN,TOTAL 0.3 mg/dL (0.2-1.3); BLOOD UREA NITROGEN 16 mg/dL (7-20); CALCIUM 9.6 mg/dL (8.4-10.2); CARBON DIOXIDE 29 mmol/L (22-30); CHLORIDE 103 mmol/L (98-107); CREATINE KINASE 364 U/L (55-170); GLUCOSE 168 mg/dL (75-110); POTASSIUM 4.1 mmol/L (3.6-5.0); SODIUM 142.8 mmol/L (137-145); TOTAL PROTEIN 7.7 g/dL (6.3-8.2)
--- NOTE | 2018-07-15 09:46 | EKG REPORT ---
SEVERITY:- BORDERLINE ECG - SINUS TACHYCARDIA BORDERLINE PROLONGED QT INTERVAL : Confirmed by: Srinivas Morales 15-Jul-2018 09:46:10
[2018-07-15 09:55] LABS: CREATINE KINASE MB 3.66 ng/mL (<4.55)
[2018-07-15 09:57] LABS: TROPONIN I < 0.012 ng/mL
[2018-07-15] MEDS: PROPOFOL 1,000 MG/100 ML INFUS..BTL IV PRN ×4 (10:35→19:34)
--- NOTE | 2018-07-15 10:35 | RADIOLOGY REPORT (SQ) ---
EXAM DESCRIPTION: KUB/ABDOMEN (SINGLE VIEW) COMPLETED DATE/TIME: 07/15/2018 10:17 am REASON FOR STUDY: NGT COMPARISON: None. NUMBER OF VIEWS: One view. TECHNIQUE: Supine radiographic image of the upper abdomen acquired. LIMITATIONS: None. FINDINGS: BOWEL GAS PATTERN: Normal bowel gas pattern. No dilated loops. CALCIFICATIONS: No suspicious calcifications. SOFT TISSUES: No gross mass or suggestion of organomegaly. HARDWARE: Tip of the nasogastric tube in the stomach. BONES: No acute fracture. No worrisome bone lesions. OTHER: No other significant finding. IMPRESSION: THE TIP OF THE NASOGASTRIC TUBE IN THE STOMACH. NO RADIOGRAPHIC EVIDENCE FOR ACUTE ABDO LORIN DISEASE. TECHNICAL DOCUMENTATION: JOB ID: [id number] [employer]- All Rights Reserved Reading location - IP/workstation name: [email or web address]
--- NOTE | 2018-07-15 10:42 | RADIOLOGY REPORT (SQ) ---
EXAM DESCRIPTION: CHEST SINGLE VIEW COMPLETED DATE/TIME: 07/15/2018 10:17 am REASON FOR STUDY: tube placement COMPARISON: 07/15/2018 at 0915 hours. EXAM PARAMETERS: NUMBER OF VIEWS: One view. TECHNIQUE: Single frontal radiographic view of the chest acquired. RADIATION DOSE: NA LIMITATIONS: None. FINDINGS: LUNGS AND PLEURA: No opacities, masses or pneumothorax. No pleural effusion. MEDIASTINUM AND HILAR STRUCTURES: No masses. Contour normal. HEART AND VASCULAR STRUCTURES: Heart normal in size. Normal vasculature. BONES: No acute findings. HARDWARE: The tip of the endotracheal tube under that the endotracheal tube has been advanced and the tip is now located 4 cm proximal to the hawa. Tip of the nasogastric tube not visualized but in t he stomach. OTHER: No other significant finding. IMPRESSION: SATISFACTORY POSITION OF THE ENDOTRACHEAL TUBE. NO ACUTE RADIOGRAPHIC FINDING IN THE CH EST. TECHNICAL DOCUMENTATION: JOB ID: [id number] [employer]- All Rights Reserved Reading location - IP/workstation name: [email or web address]
[2018-07-15] MEDS: BUDESONIDE NEB 0.5 MG/2 ML AMPUL NEB SCH ×2 (11:56→20:40)
[2018-07-15] MEDS: HYDRALAZINE HCL INJ/PF 20 MG/1 ML SDV IV PRN ×2 (12:05→19:57)
[2018-07-15] MEDS: METHYLPREDNISOLONE INJ 125 MG/2 ML SDV IV SCH ×2 (12:10→17:54)
--- NOTE | 2018-07-15 12:12 | RADIOLOGY REPORT (SQ) ---
EXAM DESCRIPTION: CT SOFT TISSUE NECK WITH COMPLETED DATE/TIME: 07/15/2018 11:49 am REASON FOR STUDY: traumatic intubation COMPARISON: None. TECHNIQUE: Post IV contrasted scanning from skull base through lung apices with review of bone, soft tissue and lung windows. Reconstructed coronal and sagittal MPR images reviewed. All images stored on PACS. All CT scanners at this facility use dose modulation, iterative reconstruction, and/or weight based d osing when appropriate to reduce radiation dose to as low as reasonably achievable (ALARA). [facility]: Dose Right [facility]: CareDose [facility]: Dose Right [facility]: Teradose 4D [facility]: [employer] Air CONTRAST TYPE AND DOSE: contrast/concentration: Isovue 350.00 mg/ml; Total Contrast Delivered: 75.0 ml; Total Saline Delivered: 55.0 ml RENAL FUNCTION: BUN 16 creatinine 1.27. RADIATION DOSE: CT Rad equipment meets quality standard of care and radiation dose reduction techniq ues were employed. CTDIvol: 16.0 mGy. DLP: 545 mGy-cm. . LIMITATIONS: None. FINDINGS: SKULL BASE: Intact. MAJOR SALIVARY GLANDS: No solid or cystic masses. No inflammatory changes. LYMPHADENOPATHY: No adenopathy. MUCOSAL MASSES OR ASYMMETRY: No mucosal masses or asymmetry. LARYNX/CORDS: No abnormal findings. VASCULAR STRUCTURES: The major vessels are patent. LUNG APICES: Clear. BONES: Intact. THYROID: Normal size. No masses. PARANASAL SINUSES: Mucous membrane thickening in the maxillary and ethmoid sinuses. OTHER: An endotracheal tube is present in the trachea. A nasogastric tube is present in the esophagu s. No other significant finding. IMPRESSION: NO SIGNIFICANT FINDING IN THE SOFT TISSUES OF THE NECK. MAXILLARY AND ETHMOID SINUS DIS EASE. TECHNICAL DOCUMENTATION: JOB ID: [id number] Quality ID # [id number]: Final reports with documentation of one or more dose reduction techniques (e.g., Au tomated exposure control, adjustment of the mA and/or kV according to patient size, use of iterative reconstruction technique) 2010 [employer]- All Rights Reserved Reading location - IP/workstation name: [email or web address]-
[2018-07-15 12:36] LABS: ARTERIAL BLOOD BASE EXCESS -3.1 mmol/L; ARTERIAL BLOOD H2CO3 1.85 mmol/L (1.05-1.35); ARTERIAL BLOOD HCO3 25.6 mmol/L (20-24); ARTERIAL BLOOD PCO2 61.3 mmHg (35-45); ARTERIAL BLOOD PH 7.24 (7.35-7.45); ARTERIAL BLOOD PO2 130.8 mmHg (80-100); ARTERIAL BLOOD TOTAL CO2 27.4 mmol/L (23-27)
[2018-07-15 12:37] LABS: ARTERIAL BLOOD FIO2 40%
[2018-07-15] MEDS: MIDAZOLAM HCL 50 MG/100 ML RTUINJ IV PRN ×2 (12:51→19:06)
[2018-07-15] MEDS: LEVOFLOXACIN 750 MG/D5W RTU 750 MG/150 ML RTUPB IV SCH (13:18)
[2018-07-15] MEDS: LEVALBUTEROL HCL NEB 1.25 MG/3 ML AMPUL NEB PRN ×3 (14:14→22:25)
[2018-07-15] MEDS: HEPARIN SOD (PORCINE) 5,000 UNIT/ML 1 ML SYRINGE SUBCUT SCH ×2 (14:17→21:28)
--- NOTE | 2018-07-15 18:21 | PDOC H&P ---
History of Present Illness Admission Date/PCP: 07/15/18 10:38 History of Present Illness: LUPE [place] is a 38 year old male who presented to the ER in respiratory distress. He has a history of pretty severe asthma. He was intubated about 6 months ago, and his fiance said is been intubated twice. 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 He does have to use bronchodilators at home. 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 He apparently did not wear it yesterday at work. He started having some shortness of breath last night and been using bronchodilators all night overnight, but apparently this happens to him all the time so he did not think anything of it at the time. His fiance said that he woke her up early this morning said he had to go to the hospital. She was getting ready to take him to the hospital but then he told her to call EMS because he did not think he was going to make it. EMS intubated him in the field. They brought him in he was oxygenating but he was still having a hard time moving air. The tube had to be repositioned in the ER and it was very difficult to get the tube into the correct position. He is being admitted to the hospitalist service and placed in the intensive care unit. Past Medical History Cardiac Medical History: Reports: Hypertension Denies: Congestive Heart Failure, DVT, Myocardial Infarction, Hyperlipidema, Pulmonary Embolism Pulmonary Medical History: Reports: Asthma Denies: Chronic Obstructive Pulmonary Disease (COPD) Neurological Medical History: Denies: Seizures Endocrine Medical History: Denies: Diabetes Mellitus Type 1, Diabetes Mellitus Type 2, Hyperthyroidism, Hypothyroidism GI Medical History: Denies: Cirrhosis, Gastroesophageal Reflux Disease, Hepatitis Musculoskeltal Medical History: Denies: Arthritis Skin Medical History: Denies: Eczema, Psoriasis Psychiatric Medical History: Denies: Depression Past Surgical History Past Surgical History: Reports: Other - Removal of benign mass from the throat. Social History Smoking Status: Current Every Day Smoker Cigarettes Packs Per Day: 1 Last Time Smoked: 07/14/2018 Frequency of Alcohol Use: Rare Hx Recreational Drug Use: No Drugs: None Hx Prescription Drug Abuse: No Family History Family History: Reviewed & Not Pertinent Parental Family History Reviewed: No - Unable to obtain Children Family History Reviewed: No - Unable to obtain Sibling(s) Family History Reviewed.: No - Unable to obtain Medication/Allergy Home Medications: Albuterol Sulfate [Proair HFA Inhalation Aerosol 8.5 gm MDI] 1 puff IH Q4HP PRN 07/15/18 Albuterol Sulfate [Ventolin 0.083% Neb 2.5 mg/3 mL Ampul] 2.5 mg NEB RTQ4HP PRN 07/15/18 Allergies/Adverse Reactions: venom-wasp [Wasp Venom] Allergy (Verified 05/12/18 21:44) cats Allergy (Uncoded 05/12/18 21:44) lactose intolerant Allergy (Uncoded 05/12/18 21:44) Review of Systems ROS unobtainable: Due to endotracheal tube, Due to mental status Physical Exam Vital Signs: Temp Pulse Resp BP Pulse Ox 97.9 F 112 H 32 H 132/78 H 99 07/15/18 16:00 07/15/18 18:00 07/15/18 18:00 07/15/18 18:00 07/15/18 18:00 Intake & Output 07/14/18 07/15/18 07/16/18 06:59 06:59 06:59 Intake Total 358 Output Total 420 Balance -62 Weight 71.9 kg General appearance: PRESENT: severe distress, well-developed, well-nourished Head exam: PRESENT: atraumatic, normocephalic Eye exam: PRESENT: other - He was under sedation. ABSENT: conjunctival injection, nystagmus, periorbital swelling, scleral icterus Ear exam: PRESENT: normal external ear exam Mouth exam: PRESENT: moist, other - ET tube is in place Throat exam: PRESENT: other - Visualization via glide scope Showed a lot of airway edema and secretions Neck exam: PRESENT: full ROM. ABSENT: carotid bruit, JVD, lymphadenopathy, meningismus, tenderness, thyromegaly Respiratory exam: PRESENT: accessory muscle use, decreased breath sounds, prolonged expiratory phas, retraction, symmetrical, tachypnea, wheezes - Very faint due to the severe airway narrowing. ABSENT: rhonchi, unlabored Cardiovascular exam: PRESENT: tachycardia Pulses: PRESENT: normal carotid pulses Vascular exam: PRESENT: normal capillary refill GI/Abdominal exam: PRESENT: normal bowel sounds, soft. ABSENT: distended - He had some after intubation repositioning attempt but this resolved after the NG tube was placed, guarding, rebound, tenderness Extremities exam: ABSENT: clubbing, pedal edema Musculoskeletal exam: PRESENT: normal inspection. ABSENT: deformity Neurological exam: PRESENT: other - He was completely sedated and therefore unable to undergo a satisfactory neurological examination Psychiatric exam: PRESENT: other - Sedated and intubated Skin exam: PRESENT: dry, warm Results Laboratory Results: 07/15/18 09:01 07/15/18 09:01 07/15/18 07/15/18 07/15/18 09:01 09:01 09:01 WBC 13.5 H RBC 5.08 Hgb 15.1 Hct 45.1 MCV 89 MCH 29.8 MCHC 33.5 RDW 14.1 H Plt Count 248 Seg Neutrophils % 77.0 Lymphocytes % 15.2 Monocytes % 4.3 Eosinophils % 2.9 Basophils % 0.6 Absolute Neutrophils 10.4 H Absolute Lymphocytes 2.1 Absolute Monocytes 0.6 Absolute Eosinophils 0.4 Absolute Basophils 0.1 Carbonic Acid HCO3/H2CO3 Ratio ABG pH ABG pCO2 ABG pO2 ABG HCO3 ABG O2 Saturation ABG Base Excess FiO2 Sodium 142.8 Potassium 4.1 Chloride 103 Carbon Dioxide 29 Anion Gap 11 BUN 16 Creatinine 1.27 H Est GFR ( Amer) > 60 Est GFR (Non-Af Amer) > 60 Glucose 168 H Lactic Acid 1.2 Calcium 9.6 Total Bilirubin 0.3 AST 27 ALT 32 Alkaline Phosphatase 54 Total Protein 7.7 Albumin 4.5 07/15/18 07/15/18 09:01 12:19 WBC RBC Hgb Hct MCV MCH MCHC RDW Plt Count Seg Neutrophils % Lymphocytes % Monocytes % Eosinophils % Basophils % Absolute Neutrophils Absolute Lymphocytes Absolute Monocytes Absolute Eosinophils Absolute Basophils Carbonic Acid 2.93 H 1.85 H HCO3/H2CO3 Ratio 9:1 13:1 ABG pH 7.07 L* 7.24 L ABG pCO2 97.3 H* 61.3 H ABG pO2 514.2 H 130.8 H ABG HCO3 27.7 H 25.6 H ABG O2 Saturation 99.8 H 98.0 ABG Base Excess -5.5 -3.1 FiO2 15L 40% Sodium Potassium Chloride Carbon Dioxide Anion Gap BUN Creatinine Est GFR ( Amer) Est GFR (Non-Af Amer) Glucose Lactic Acid Calcium Total Bilirubin AST ALT Alkaline Phosphatase Total Protein Albumin 07/15/18 07/15/18 09:01 09:01 Creatine Kinase 364 H CK-MB (CK-2) 3.66 Troponin I < 0.012 Impressions: Soft Tissue Neck CT 07/15/18 00:00 IMPRESSION: NO SIGNIFICANT FINDING IN THE SOFT TISSUES OF THE NECK. MAXILLARY AND ETHMOID SINUS DISEASE. Chest X-Ray 07/15/18 09:54 IMPRESSION: SATISFACTORY POSITION OF THE ENDOTRACHEAL TUBE. NO ACUTE RADIOGRAPHIC FINDING IN THE CHEST. KUB X-Ray 07/15/18 10:00 IMPRESSION: THE TIP OF THE NASOGASTRIC TUBE IN THE STOMACH. NO RADIOGRAPHIC EVIDENCE FOR ACUTE ABDOMINAL DISEASE. Assessment and Plan - Diagnosis (1) Acute respiratory failure with hypoxia and hypercapnia Is this a current diagnosis for this admission?: Yes Plan: Intubated to help correct his blood gases, keep his PCO2 down and to keep his SPO2 greater than 90% (2) Status asthmaticus Qualifiers: Asthma severity: severe Asthma persistence: persistent Qualified Code(s): J45.52 - Severe persistent asthma with status asthmaticus Is this a current diagnosis for this admission?: Yes Plan: We have got him on aggressive steroid and bronchodilator therapy. He received IV magnesium in the ER. He is currently requiring frequent bronchodilator treatments. His blood gases did respond to ventilation. His CO2 is coming down and his pH is coming up. He will require very close monitoring and management. He has improved from when he first came into the ER, but if he stagnates or deteriorates, will get a pulmonary consultation. - Inpatient Certification Medical Necessity: Need Close Monitoring Due to Risk of Patient Decompensation, Need For Continuous Telemetry Monitoring, Need for Nebulizer Therapy and Monitoring of Response, Risk of Complication if Not Cared For in Hospital
--- NOTE | 2018-07-15 18:27 | ADVANCED CARE ---
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 Time Spent: 10
[2018-07-15] MEDS: RINGERS SOLUTION,LACTATED 1,000 ML IV PRN (19:36)
[2018-07-15] MEDS ORDERED: MORPHINE SULFATE 10 MG/ML INJ ONE (20:15)
[2018-07-15] MEDS ORDERED: MORPHINE SULFATE 10 MG/ML INJ IV ONE (21:00)
[2018-07-16] MEDS: LEVALBUTEROL HCL NEB 1.25 MG/3 ML AMPUL NEB PRN ×4 (00:29→17:15)
[2018-07-16] MEDS: PROPOFOL 1,000 MG/100 ML INFUS..BTL IV PRN ×6 (01:02→23:03)
[2018-07-16] MEDS: METHYLPREDNISOLONE INJ 125 MG/2 ML SDV IV SCH ×3 (01:04→19:41)
[2018-07-16] MEDS: MIDAZOLAM HCL 50 MG/100 ML RTUINJ IV PRN ×3 (03:49→19:47)
[2018-07-16 03:57] LABS: ARTERIAL BLOOD BASE EXCESS 1.3 mmol/L; ARTERIAL BLOOD H2CO3 1.21 mmol/L (1.05-1.35); ARTERIAL BLOOD HCO3 25.8 mmol/L (20-24); ARTERIAL BLOOD O2 SATURATION 96.3 % (94-98); ARTERIAL BLOOD PCO2 40.3 mmHg (35-45); ARTERIAL BLOOD PH 7.42 (7.35-7.45)
[2018-07-16 03:58] LABS: ARTERIAL BLOOD FIO2 40%
[2018-07-16] MEDS: MORPHINE SULFATE 10 MG/ML INJ IV PRN ×4 (04:31→21:22)
[2018-07-16 04:59] LABS: ANION GAP 9 (5-19); BLOOD UREA NITROGEN 15 mg/dL (7-20); CALCIUM 9.5 mg/dL (8.4-10.2); CARBON DIOXIDE 26 mmol/L (22-30); CHLORIDE 103 mmol/L (98-107); GLUCOSE 125 mg/dL (75-110); POTASSIUM 4.3 mmol/L (3.6-5.0); SODIUM 137.6 mmol/L (137-145)
[2018-07-16] MEDS: HEPARIN SOD (PORCINE) 5,000 UNIT/ML 1 ML SYRINGE SUBCUT SCH ×3 (05:23→21:22)
[2018-07-16] MEDS: RINGERS SOLUTION,LACTATED 1,000 ML IV PRN ×2 (05:23→16:29)
--- NOTE | 2018-07-16 07:29 | RADIOLOGY REPORT (SQ) ---
EXAM DESCRIPTION: XR CHEST 1 VIEW COMPLETED DATE/TME: 07/16/2018 06:00 CLINICAL HISTORY: 38 years Male, mechanical ventilation COMPARISON: One day prior. NUMBER OF VIEWS/TECHNIQUE: 1/AP FINDINGS: Clear lungs of adequate volume, and normal cardiac silhouette. Adequate appearing endotracheal tube. Adequate appearing enteric tube partially obscured. No pneumothorax. Stable bony thorax. IMPRESSION: No significant change.
[2018-07-16] MEDS: IPRATROPIUM/ALBUTEROL 0.5-2.5 MG/3 ML AMPUL NEB PRN ×2 (08:29→20:34)
[2018-07-16] MEDS: BUDESONIDE NEB 0.5 MG/2 ML AMPUL NEB SCH ×2 (08:29→20:34)
[2018-07-16] MEDS: LEVOFLOXACIN 750 MG/D5W RTU 750 MG/150 ML RTUPB IV SCH (11:58)
--- NOTE | 2018-07-16 19:03 | PDOC PROGRESS REPORT ---
Subjective Progress Note for:: 07/16/18 Subjective:: No adverse events overnight. His vital signs been stable. He still little bit tachycardic but his blood pressure is much improved. We were able to come down some on his vent sedation and is tolerating it well. Respiratory rates in the low 20s. He looks a lot more comfortable breathing, is not having any more abdominal breathing like he was yesterday. Reason For Visit: ACUTE HYPOXIC RESPIRATORY FAILURE,STATUS Physical Exam Vital Signs: Temp Pulse Resp BP Pulse Ox 98.4 F 101 H 20 117/74 95 07/16/18 18:00 07/16/18 18:00 07/16/18 18:00 07/16/18 18:00 07/16/18 18:00 Intake & Output 07/15/18 07/16/18 07/17/18 06:59 06:59 06:59 Intake Total 1730 1399 Output Total 1365 1765 Balance 365 -366 Weight 70 kg General appearance: PRESENT: other - Sedated, intubated Respiratory exam: PRESENT: decreased breath sounds, prolonged expiratory phas, symmetrical, tachypnea - Mild, low 20s, unlabored, wheezes - Diffuse in all lung summers. ABSENT: accessory muscle use, crackles, rales, retraction, rhonchi Cardiovascular exam: PRESENT: tachycardia - Low 100s Pulses: PRESENT: normal carotid pulses Vascular exam: PRESENT: normal capillary refill GI/Abdominal exam: PRESENT: normal bowel sounds, soft. ABSENT: distended, guarding, rebound, tenderness Extremities exam: ABSENT: clubbing, pedal edema Musculoskeletal exam: PRESENT: normal inspection. ABSENT: deformity Neurological exam: PRESENT: other - Sedated, intubated Psychiatric exam: PRESENT: other - Sedated Skin exam: PRESENT: dry, warm Results Laboratory Results: 07/15/18 09:01 07/16/18 03:42 07/16/18 07/16/18 03:41 03:42 Carbonic Acid 1.21 HCO3/H2CO3 Ratio 21:1 ABG pH 7.42 ABG pCO2 40.3 ABG pO2 82.0 ABG HCO3 25.8 H ABG O2 Saturation 96.3 ABG Base Excess 1.3 FiO2 40% Sodium 137.6 Potassium 4.3 Chloride 103 Carbon Dioxide 26 Anion Gap 9 BUN 15 Creatinine 1.01 Est GFR ( Amer) > 60 Est GFR (Non-Af Amer) > 60 Glucose 125 H Calcium 9.5 Magnesium 2.4 H 07/15/18 07/15/18 09:01 09:01 Creatine Kinase 364 H CK-MB (CK-2) 3.66 Troponin I < 0.012 Impressions: Soft Tissue Neck CT 07/15/18 00:00 IMPRESSION: NO SIGNIFICANT FINDING IN THE SOFT TISSUES OF THE NECK. MAXILLARY AND ETHMOID SINUS DISEASE. KUB X-Ray 07/15/18 10:00 IMPRESSION: THE TIP OF THE NASOGASTRIC TUBE IN THE STOMACH. NO RADIOGRAPHIC EVIDENCE FOR ACUTE ABDOMINAL DISEASE. Chest X-Ray 07/16/18 06:00 IMPRESSION: No significant change. Assessment and Plan - Diagnosis (1) Acute respiratory failure with hypoxia and hypercapnia Is this a current diagnosis for this admission?: Yes Plan: Doing well on the current ventilator settings. His blood gases have corrected. We will continue to wean his O2 as his SPO2 tolerates to maintain greater than 90%, but he will stay on the ventilator today. (2) Status asthmaticus Qualifiers: Asthma severity: severe Asthma persistence: persistent Qualified Code(s): J45.52 - Severe persistent asthma with status asthmaticus Is this a current diagnosis for this admission?: Yes Plan: He is improving but he still having a lot of wheezing. We continue with high dose steroids and frequent bronchodilators. He does sound a lot better than yesterday, as a wheezing now indicates that he is actually moving some air whereas yesterday he had minimal if any air movement. I am going to leave him on the ventilator through the weekend. I do not think he is going to be ready over the weekend to come off, and even if he were, given how difficult it was to intubate him and then to reposition the tube, I am going to make sure that he is got a maintained airway all weekend and when we do extubate him I want to make sure that there are sufficient resources available to us in case we needed emergent airway immediately. - Time Time Spent with patient: 25-34 minutes
[2018-07-17] MEDS: LEVALBUTEROL HCL NEB 1.25 MG/3 ML AMPUL NEB PRN ×2 (00:24→12:16)
[2018-07-17] MEDS: RINGERS SOLUTION,LACTATED 1,000 ML IV PRN ×2 (01:32→23:02)
[2018-07-17] MEDS: METHYLPREDNISOLONE INJ 125 MG/2 ML SDV IV SCH ×3 (01:34→17:36)
[2018-07-17] MEDS: PROPOFOL 1,000 MG/100 ML INFUS..BTL IV PRN ×5 (02:45→19:24)
[2018-07-17 03:45] LABS: BLOOD UREA NITROGEN 19 mg/dL (7-20); CALCIUM 9.4 mg/dL (8.4-10.2); GLUCOSE 121 mg/dL (75-110)
[2018-07-17 03:46] LABS: POTASSIUM 4.5 mmol/L (3.6-5.0)
[2018-07-17] MEDS: MIDAZOLAM HCL 50 MG/100 ML RTUINJ IV PRN ×3 (03:48→21:03)
[2018-07-17 03:51] LABS: CARBON DIOXIDE 30 mmol/L (22-30); CHLORIDE 105 mmol/L (98-107); SODIUM 138.7 mmol/L (137-145)
[2018-07-17 03:54] LABS: ANION GAP 4 (5-19)
[2018-07-17 04:20] LABS: ARTERIAL BLOOD H2CO3 1.38 mmol/L (1.05-1.35); ARTERIAL BLOOD HCO3 27.4 mmol/L (20-24); ARTERIAL BLOOD O2 SATURATION 97.9 % (94-98); ARTERIAL BLOOD PH 7.39 (7.35-7.45); ARTERIAL BLOOD PO2 107.8 mmHg (80-100); ARTERIAL BLOOD TOTAL CO2 28.8 mmol/L (23-27)
[2018-07-17 04:24] LABS: ARTERIAL BLOOD FIO2 40%
[2018-07-17] MEDS: HEPARIN SOD (PORCINE) 5,000 UNIT/ML 1 ML SYRINGE SUBCUT SCH ×3 (05:44→21:04)
--- NOTE | 2018-07-17 06:47 | RADIOLOGY REPORT (SQ) ---
EXAM DESCRIPTION: XR CHEST 1 VIEW COMPLETED DATE/TME: 07/17/2018 06:00 CLINICAL HISTORY: 38 years Male, mechanical ventilation COMPARISON: One day prior. NUMBER OF VIEWS/TECHNIQUE: 1/AP FINDINGS: Clear lungs of adequate volume, and normal cardiac silhouette. Adequate appearing endotracheal tube. Adequate appearing enteric tube partially obscured. Normal cardiac silhouette size. No pneumothorax. Stable bony thorax. IMPRESSION: No significant change.
[2018-07-17] MEDS: BUDESONIDE NEB 0.5 MG/2 ML AMPUL NEB SCH ×2 (08:34→19:55)
[2018-07-17] MEDS: IPRATROPIUM/ALBUTEROL 0.5-2.5 MG/3 ML AMPUL NEB PRN ×2 (08:34→19:55)
[2018-07-17] MEDS: MORPHINE SULFATE 10 MG/ML INJ IV PRN ×2 (10:46→20:00)
[2018-07-17] MEDS: LEVOFLOXACIN 750 MG/D5W RTU 750 MG/150 ML RTUPB IV SCH (11:40)
[2018-07-17] MEDS ORDERED: METHYLPREDNISOLONE INJ 40 MG/1 ML SDV IV SCH (14:00)
[2018-07-17] MEDS: AMINO AC/PROTEIN HYDR/WHEY PRO 11 GM/45 ML PKT NG SCH ×2 (15:09→17:37)
--- NOTE | 2018-07-17 17:29 | PDOC PROGRESS REPORT ---
Subjective Progress Note for:: 07/17/18 Subjective:: No adverse events overnight. Patient remains sedated and intubated. Blood pressures were a little high this morning but has since come down nicely. We went down his vent settings a little bit yesterday and is tolerated it very well. Reason For Visit: ACUTE HYPOXIC RESPIRATORY FAILURE,STATUS Physical Exam Vital Signs: Temp Pulse Resp BP Pulse Ox 99.0 F 92 17 111/70 97 07/17/18 16:00 07/17/18 16:00 07/17/18 16:00 07/17/18 16:00 07/17/18 16:00 Intake & Output 07/16/18 07/17/18 07/18/18 06:59 06:59 06:59 Intake Total 1730 2838 520 Output Total 1365 2775 1420 Balance 365 63 -900 Weight 70 kg 71.1 kg General appearance: PRESENT: other - Sedated, intubated Respiratory exam: PRESENT: decreased breath sounds, prolonged expiratory phase, symmetrical, tachypnea - Mild, low 20s, unlabored, wheezes -intermittent overall air movement has improved. ABSENT: accessory muscle use, crackles, rales, retraction, rhonchi Cardiovascular exam: PRESENT: tachycardia - Low 100s Pulses: PRESENT: normal carotid pulses Vascular exam: PRESENT: normal capillary refill GI/Abdominal exam: PRESENT: normal bowel sounds, soft. ABSENT: distended, guarding, rebound, tenderness Extremities exam: ABSENT: clubbing, pedal edema Musculoskeletal exam: PRESENT: normal inspection. ABSENT: deformity Neurological exam: PRESENT: other - Sedated, intubated Psychiatric exam: PRESENT: other - Sedated Skin exam: PRESENT: dry, warm Results Laboratory Results: 07/15/18 09:01 07/17/18 03:18 07/17/18 07/17/18 03:18 04:09 Carbonic Acid 1.38 H HCO3/H2CO3 Ratio 19:1 ABG pH 7.39 ABG pCO2 46.0 H ABG pO2 107.8 H ABG HCO3 27.4 H ABG O2 Saturation 97.9 ABG Base Excess 2.0 FiO2 40% Sodium 138.7 Potassium 4.5 Chloride 105 Carbon Dioxide 30 Anion Gap 4 L BUN 19 Creatinine 0.86 Est GFR ( Amer) > 60 Est GFR (Non-Af Amer) > 60 Glucose 121 H Calcium 9.4 Magnesium 2.7 H 07/15/18 07/15/18 09:01 09:01 Creatine Kinase 364 H CK-MB (CK-2) 3.66 Troponin I < 0.012 Impressions: Soft Tissue Neck CT 07/15/18 00:00 IMPRESSION: NO SIGNIFICANT FINDING IN THE SOFT TISSUES OF THE NECK. MAXILLARY AND ETHMOID SINUS DISEASE. KUB X-Ray 07/15/18 10:00 IMPRESSION: THE TIP OF THE NASOGASTRIC TUBE IN THE STOMACH. NO RADIOGRAPHIC EVIDENCE FOR ACUTE ABDOMINAL DISEASE. Chest X-Ray 07/17/18 06:00 IMPRESSION: No significant change. Assessment and Plan - Diagnosis (1) Acute respiratory failure with hypoxia and hypercapnia Is this a current diagnosis for this admission?: Yes Plan: Doing well on the current ventilator settings. His blood gases have corrected. We will continue to wean his O2 as his SPO2 tolerates to maintain greater than 90%, but he will stay on the ventilator today. (2) Status asthmaticus Qualifiers: Asthma severity: severe Asthma persistence: persistent Qualified Code(s): J45.52 - Severe persistent asthma with status asthmaticus Is this a current diagnosis for this admission?: Yes Plan: He is improving, has better air movement and less wheezing. We continue with high dose steroids and bronchodilators, but I am going to decrease the dose of his steroids today. I am going to leave him on the ventilator through the weekend. I do not think he is going to be ready over the weekend to come off, and even if he were, given how difficult it was to intubate him and then to reposition the tube, when we do extubate him I want to make sure that there are sufficient resources available to us in case we need an emergent airway. - Time Time Spent with patient: 25-34 minutes
[2018-07-18] MEDS: PROPOFOL 1,000 MG/100 ML INFUS..BTL IV PRN ×6 (00:15→21:39)
[2018-07-18] MEDS: LEVALBUTEROL HCL NEB 1.25 MG/3 ML AMPUL NEB PRN (00:27)
[2018-07-18] MEDS: MORPHINE SULFATE 10 MG/ML INJ IV PRN ×6 (01:07→23:55)
[2018-07-18] MEDS: METHYLPREDNISOLONE INJ 125 MG/2 ML SDV IV SCH ×3 (01:43→17:05)
[2018-07-18 04:38] LABS: BLOOD UREA NITROGEN 20 mg/dL (7-20); CALCIUM 9.2 mg/dL (8.4-10.2); GLUCOSE 100 mg/dL (75-110); POTASSIUM 4.2 mmol/L (3.6-5.0)
[2018-07-18 04:45] LABS: CARBON DIOXIDE 26 mmol/L (22-30); CHLORIDE 108 mmol/L (98-107); SODIUM 138.3 mmol/L (137-145)
[2018-07-18 04:54] LABS: ANION GAP 4 (5-19)
[2018-07-18] MEDS: MIDAZOLAM HCL 50 MG/100 ML RTUINJ IV PRN ×3 (04:58→21:35)
[2018-07-18] MEDS: HEPARIN SOD (PORCINE) 5,000 UNIT/ML 1 ML SYRINGE SUBCUT SCH ×3 (05:00→21:35)
[2018-07-18 05:06] LABS: ARTERIAL BLOOD BASE EXCESS 1.9 mmol/L; ARTERIAL BLOOD H2CO3 1.32 mmol/L (1.05-1.35); ARTERIAL BLOOD HCO3 26.9 mmol/L (20-24); ARTERIAL BLOOD O2 SATURATION 96.1 % (94-98); ARTERIAL BLOOD PCO2 43.7 mmHg (35-45); ARTERIAL BLOOD PH 7.41 (7.35-7.45); ARTERIAL BLOOD TOTAL CO2 28.2 mmol/L (23-27)
[2018-07-18 05:10] LABS: ARTERIAL BLOOD FIO2 30%
--- NOTE | 2018-07-18 07:21 | RADIOLOGY REPORT (SQ) ---
EXAM DESCRIPTION: XR CHEST 1 VIEW COMPLETED DATE/TME: 07/18/2018 06:00 CLINICAL HISTORY: 38 years Male, mechanical ventilation COMPARISON: One day prior. NUMBER OF VIEWS/TECHNIQUE: 1/AP FINDINGS: Clear lungs of adequate volume, and normal cardiac silhouette. Adequate appearing endotracheal tube. Adequate appearing enteric tube partially obscured. No pneumothorax. Stable bony thorax. IMPRESSION: No significant change.
[2018-07-18] MEDS: BUDESONIDE NEB 0.5 MG/2 ML AMPUL NEB SCH ×2 (08:44→20:36)
[2018-07-18] MEDS: IPRATROPIUM/ALBUTEROL 0.5-2.5 MG/3 ML AMPUL NEB PRN (08:44)
[2018-07-18] MEDS: RINGERS SOLUTION,LACTATED 1,000 ML IV PRN ×2 (09:11→20:56)
[2018-07-18] MEDS: AMINO AC/PROTEIN HYDR/WHEY PRO 11 GM/45 ML PKT NG SCH ×3 (09:11→17:05)
[2018-07-18] MEDS: LEVOFLOXACIN 750 MG/D5W RTU 750 MG/150 ML RTUPB IV SCH (11:42)
[2018-07-18] MEDS: IPRATROPIUM/ALBUTEROL 0.5-2.5 MG/3 ML AMPUL NEB SCH ×2 (14:17→20:36)
--- NOTE | 2018-07-18 17:30 | PDOC PROGRESS REPORT ---
Subjective Progress Note for:: 07/18/18 Subjective:: No adverse events overnight. Patient remains sedated and intubated. With the smallest stimulus he gets agitated and pulls against the restraints and his heart rate goes up, but he calmed down after about a minute or so. Tolerating his tube feeds well thus far. No fevers. Reason For Visit: ACUTE HYPOXIC RESPIRATORY FAILURE,STATUS Physical Exam Vital Signs: Temp Pulse Resp BP Pulse Ox 97.3 F 78 16 127/79 H 94 07/18/18 04:00 07/18/18 14:17 07/18/18 14:17 07/18/18 13:48 07/18/18 15:46 Intake & Output 07/17/18 07/18/18 07/19/18 06:59 06:59 06:59 Intake Total 2838 2339 1550 Output Total 2775 3445 2200 Balance 63 -1106 -650 Weight 71.1 kg 70.8 kg General appearance: PRESENT: other - Sedated, intubated Respiratory exam: PRESENT: decreased breath sounds, prolonged expiratory phase, symmetrical, tachypnea - Mild, low 20s, unlabored, wheezes -intermittent overall air movement has improved. ABSENT: accessory muscle use, crackles, rales, retraction, rhonchi Cardiovascular exam: PRESENT: tachycardia - Low 100s Pulses: PRESENT: normal carotid pulses Vascular exam: PRESENT: normal capillary refill GI/Abdominal exam: PRESENT: normal bowel sounds, soft. ABSENT: distended, gu arding, rebound, tenderness Extremities exam: ABSENT: clubbing, pedal edema Musculoskeletal exam: PRESENT: normal inspection. ABSENT: deformity Neurological exam: PRESENT: other - Sedated, intubated Psychiatric exam: PRESENT: other - Sedated Skin exam: PRESENT: dry, warm Results Laboratory Results: 07/15/18 09:01 07/18/18 03:55 07/18/18 07/18/18 03:55 04:26 Carbonic Acid 1.32 HCO3/H2CO3 Ratio 20:1 ABG pH 7.41 ABG pCO2 43.7 ABG pO2 82.0 ABG HCO3 26.9 H ABG O2 Saturation 96.1 ABG Base Excess 1.9 FiO2 30% Sodium 138.3 Potassium 4.2 Chloride 108 H Carbon Dioxide 26 Anion Gap 4 L BUN 20 Creatinine 0.85 Est GFR ( Amer) > 60 Est GFR (Non-Af Amer) > 60 Glucose 100 Calcium 9.2 Magnesium 2.3 07/15/18 07/15/18 09:01 09:01 Creatine Kinase 364 H CK-MB (CK-2) 3.66 Troponin I < 0.012 Impressions: Soft Tissue Neck CT 07/15/18 00:00 IMPRESSION: NO SIGNIFICANT FINDING IN THE SOFT TISSUES OF THE NECK. MAXILLARY AND ETHMOID SINUS DISEASE. KUB X-Ray 07/15/18 10:00 IMPRESSION: THE TIP OF THE NASOGASTRIC TUBE IN THE STOMACH. NO RADIOGRAPHIC EVIDENCE FOR ACUTE ABDOMINAL DISEASE. Chest X-Ray 07/18/18 06:00 IMPRESSION: No significant change. Assessment and Plan - Diagnosis (1) Acute respiratory failure with hypoxia and hypercapnia Is this a current diagnosis for this admission?: Yes Plan: Doing well on the current ventilator settings. His blood gases have corrected. We will continue to wean his O2 as his SPO2 tolerates to maintain greater than 90%, but he will stay on the ventilator again today. (2) Status asthmaticus Qualifiers: Asthma severity: severe Asthma persistence: persistent Qualified Code(s): J45.52 - Severe persistent asthma with status asthmaticus Is this a current diagnosis for this admission?: Yes Plan: He is improving, has better air movement and less wheezing but his exam is about the same as it was yesterday, even though he looks more comfortable and his heart rate is come down some. We continue with high dose steroids and bronchodilators, decreased his steroids yesterday and he has tolerated it thus far. I am going to leave him on the ventilator again today. He has improved but I still do not think he is ready to come off yet. We will continue to try to lighten his sedation to see how he responds in terms of respiratory effort. Given how difficult it was to intubate him and then to reposition the tube, when we do extubate him I want to make sure that there are sufficient resources av ailable to us in case we need an emergent airway. - Time Time Spent with patient: 25-34 minutes
[2018-07-19] MEDS: METHYLPREDNISOLONE INJ 125 MG/2 ML SDV IV SCH ×3 (01:12→17:33)
[2018-07-19] MEDS: PROPOFOL 1,000 MG/100 ML INFUS..BTL IV PRN ×5 (02:29→21:46)
[2018-07-19] MEDS: IPRATROPIUM/ALBUTEROL 0.5-2.5 MG/3 ML AMPUL NEB SCH ×4 (02:36→20:34)
[2018-07-19] MEDS: HEPARIN SOD (PORCINE) 5,000 UNIT/ML 1 ML SYRINGE SUBCUT SCH ×3 (05:11→21:21)
[2018-07-19] MEDS: MIDAZOLAM HCL 50 MG/100 ML RTUINJ IV PRN ×2 (06:07→14:37)
[2018-07-19] MEDS: MORPHINE SULFATE 10 MG/ML INJ IV PRN ×4 (06:29→21:24)
[2018-07-19] MEDS: RINGERS SOLUTION,LACTATED 1,000 ML IV PRN ×2 (07:31→17:40)
[2018-07-19] MEDS: BUDESONIDE NEB 0.5 MG/2 ML AMPUL NEB SCH ×2 (08:40→20:34)
[2018-07-19 09:32] LABS: ABSOLUTE LYMPHOCYTES (AUTO) 0.9 10^3/uL (0.5-4.7); ABSOLUTE MONOCYTES (AUTO) 1.1 10^3/uL (0.1-1.4); ABSOLUTE NEUT (AUTO) 13.2 10^3/uL (1.7-8.2); BASOPHILS % (AUTO) 0.1 % (0-2); HEMATOCRIT 41.6 % (37.9-51.0); LYMPHOCYTES % (AUTO) 6.1 % (13-45); MEAN CORPUSCULAR HEMOGLOBIN 29.6 pg (27.0-33.4); MEAN CORPUSCULAR HGB CONC 33.7 g/dL (32.0-36.0); MEAN CORPUSCULAR VOLUME 88 fl (80-97); MONOCYTES % (AUTO) 7.1 % (3-13); PLATELET COUNT 194 10^3/uL (150-450); RED BLOOD COUNT 4.75 10^6/uL (4.35-5.55); RED CELL DISTRIBUTION WIDTH 14.7 % (11.5-14.0); SEGMENTED NEUTROPHILS % (AUTO) 86.7 % (42-78); TOTAL CELLS COUNTED % (AUTO) 100 %; WHITE BLOOD COUNT 15.2 10^3/uL (4.0-10.5)
[2018-07-19] MEDS: AMINO AC/PROTEIN HYDR/WHEY PRO 11 GM/45 ML PKT NG SCH ×3 (09:58→17:33)
[2018-07-19] MEDS: LEVOFLOXACIN 750 MG/D5W RTU 750 MG/150 ML RTUPB IV SCH (11:34)
[2018-07-19] MEDS: HYDRALAZINE HCL INJ/PF 20 MG/1 ML SDV IV PRN (14:37)
--- NOTE | 2018-07-19 20:12 | PDOC PROGRESS REPORT ---
Subjective Progress Note for:: 07/19/18 Subjective:: Patient remains intubated. Still on sedation. Patient's cyndie reports that he was recently intubated in [place] within the last year. Had similar issues when trying to wean from sedation he would get agitated. She reports that they had a very short trial of pressure support before extubating. Reason For Visit: ACUTE HYPOXIC RESPIRATORY FAILURE,STATUS Physical Exam Vital Signs: Temp Pulse Resp BP Pulse Ox 98.2 F 85 16 137/92 H 94 07/19/18 05:24 07/19/18 08:41 07/19/18 11:00 07/19/18 10:49 07/19/18 11:55 Intake & Output 07/18/18 07/19/18 07/20/18 06:59 06:59 06:59 Intake Total 2339 5570 Output Total 3445 4200 1000 Balance -1106 1370 -1000 Weight 70.8 kg 72 kg General appearance: PRESENT: no acute distress, well-developed, other - Intubated and sedated Eye exam: PRESENT: other - Did not assess Ear exam: PRESENT: normal external ear exam Mouth exam: PRESENT: other - Endotracheal tube in place Throat exam: PRESENT: other - Endotracheal tube in place Respiratory exam: PRESENT: clear to auscultation fabi, symmetrical. ABSENT: rales, rhonchi, wheezes Cardiovascular exam: PRESENT: RRR, +S1, +S2, other - As for GI/Abdominal exam: PRESENT: normal bowel sounds, soft. ABSENT: distended, tenderness Rectal exam: PRESENT: deferred Gentrourinary exam: PRESENT: indwelling catheter Extremities exam: ABSENT: pedal edema Neurological exam: ABSENT: awake Psychiatric exam: ABSENT: agitated Focused psych exam: ABSENT: restlessness Results Laboratory Results: 07/19/18 09:24 07/18/18 03:55 07/19/18 09:24 WBC 15.2 H RBC 4.75 Hgb 14.0 Hct 41.6 MCV 88 MCH 29.6 MCHC 33.7 RDW 14.7 H Plt Count 194 Seg Neutrophils % 86.7 H Lymphocytes % 6.1 L Monocytes % 7.1 Eosinophils % 0.0 Basophils % 0.1 Absolute Neutrophils 13.2 H Absolute Lymphocytes 0.9 Absolute Monocytes 1.1 Absolute Eosinophils 0.0 Absolute Basophils 0.0 07/15/18 07/15/18 09:01 09:01 Creatine Kinase 364 H CK-MB (CK-2) 3.66 Troponin I < 0.012 Impressions: Soft Tissue Neck CT 07/15/18 00:00 IMPRESSION: NO SIGNIFICANT FINDING IN THE SOFT TISSUES OF THE NECK. MAXILLARY AND ETHMOID SINUS DISEASE. KUB X-Ray 07/15/18 10:00 IMPRESSION: THE TIP OF THE NASOGASTRIC TUBE IN THE STOMACH. NO RADIOGRAPHIC EVIDENCE FOR ACUTE ABDOMINAL DISEASE. Chest X-Ray 07/18/18 06:00 IMPRESSION: No significant change. Assessment and Plan - Diagnosis (1) Status asthmaticus Qualifiers: Asthma severity: severe Asthma persistence: persistent Qualified Code(s): J45.52 - Severe persistent asthma with status asthmaticus Is this a current diagnosis for this admission?: Yes Plan: The patient required intubation and is on high-dose steroids. He is on antibiotics as well. As noted above he tends to be very sensitive to the endotracheal tube and gets quite agitated while attempting pressure support trials. He may need a relatively short trial with extubation. Consider additional medications if needed. The patient does not have a prescription plan and is running out of medications. I explained to his fiance that we will try and work with a local pharmacy to find the most affordable regimen that treats his symptoms. (2) Acute asthma exacerbation Qualifiers: Asthma severity: moderate Asthma persistence: persistent Qualified Code(s): J45.41 - Moderate persistent asthma with (acute) exacerbation Is this a current diagnosis for this admission?: Yes Plan: As above (3) Acute respiratory failure with hypoxia Is this a current diagnosis for this admission?: Yes Plan: Currently remains intubated. We will move towards pressure support trials with the view to extubation especially since there was no wheezing today. (4) Tobacco dependency Is this a current diagnosis for this admission?: Yes Plan: I stressed to the patient's fianc that he needs to stop smoking. She also smokes and has agreed to stop smoking with him. We did apply a nicotine patch to the patient as well. - Time Time Spent with patient: 15-24 minutes Smoking Cessation Education: 3 to 10 minutes Medications reviewed and adjusted accordingly: Yes
[2018-07-20] MEDS: MIDAZOLAM HCL 50 MG/100 ML RTUINJ IV PRN ×3 (00:01→17:08)
[2018-07-20] MEDS: METHYLPREDNISOLONE INJ 125 MG/2 ML SDV IV SCH ×3 (01:22→17:08)
[2018-07-20] MEDS: PROPOFOL 1,000 MG/100 ML INFUS..BTL IV PRN ×4 (01:30→19:57)
[2018-07-20] MEDS: IPRATROPIUM/ALBUTEROL 0.5-2.5 MG/3 ML AMPUL NEB SCH ×4 (02:09→20:39)
[2018-07-20 03:20] LABS: HEMATOCRIT 38.7 % (37.9-51.0); HEMOGLOBIN 13.2 g/dL (13.5-17.0); MEAN CORPUSCULAR HEMOGLOBIN 29.7 pg (27.0-33.4); MEAN CORPUSCULAR VOLUME 87 fl (80-97); PLATELET COUNT 194 10^3/uL (150-450); RED BLOOD COUNT 4.44 10^6/uL (4.35-5.55); RED CELL DISTRIBUTION WIDTH 14.3 % (11.5-14.0); WHITE BLOOD COUNT 10.5 10^3/uL (4.0-10.5)
[2018-07-20 03:39] LABS: BLOOD UREA NITROGEN 24 mg/dL (7-20); CALCIUM 9.6 mg/dL (8.4-10.2); CARBON DIOXIDE 28 mmol/L (22-30); CHLORIDE 106 mmol/L (98-107); GLUCOSE 122 mg/dL (75-110); POTASSIUM 4.2 mmol/L (3.6-5.0)
[2018-07-20 03:43] LABS: ABSOLUTE LYMPHOCYTES# (MANUAL) 0.5 10^3/uL (0.5-4.7); ABSOLUTE MONOCYTES # (MANUAL) 0.6 10^3/uL (0.1-1.4); ABSOLUTE NEUTROPHILS# (MANUAL) 9.3 10^3/uL (1.7-8.2); BASOPHILS % (MANUAL) 0 % (0-2); EOSINOPHILS % (MANUAL) 0 % (0-6); HYPOCHROMASIA 1+; LYMPHOCYTES % (MANUAL) 5 % (13-45); MONOCYTES % (MANUAL) 6 % (3-13); PLATELET COMMENT ADEQUATE; SEGMENTED NEUTROPHILS % (MAN) 89 % (42-78); TOTAL CELLS COUNTED 100
[2018-07-20 03:47] LABS: ANION GAP 3 (5-19)
[2018-07-20] MEDS: HEPARIN SOD (PORCINE) 5,000 UNIT/ML 1 ML SYRINGE SUBCUT SCH ×3 (05:29→21:10)
[2018-07-20] MEDS: MORPHINE SULFATE 10 MG/ML INJ IV PRN ×4 (05:55→21:10)
[2018-07-20] MEDS: NICOTINE 7 MG/24 HR PATCH.TD24 TD SCH (09:10)
[2018-07-20] MEDS: AMINO AC/PROTEIN HYDR/WHEY PRO 11 GM/45 ML PKT NG SCH ×3 (09:10→17:09)
[2018-07-20] MEDS: BUDESONIDE NEB 0.5 MG/2 ML AMPUL NEB SCH ×2 (09:11→20:39)
[2018-07-20] MEDS: MONTELUKAST SODIUM 10 MG TABLET PO SCH (10:56)
--- NOTE | 2018-07-20 10:57 | PDOC PROGRESS REPORT ---
Subjective Progress Note for:: 07/20/18 Subjective:: Patient remains intubated and sedated. He appears to be comfortable. Reason For Visit: ACUTE HYPOXIC RESPIRATORY FAILURE,STATUS Physical Exam Vital Signs: Temp Pulse Resp BP Pulse Ox 99.0 F 77 23 H 116/77 97 07/20/18 08:00 07/20/18 10:00 07/20/18 10:00 07/20/18 10:00 07/20/18 10:00 Intake & Output 07/19/18 07/20/18 07/21/18 06:59 06:59 06:59 Intake Total 5570 2213 100 Output Total 4200 4375 700 Balance 1370 -2162 -600 Weight 72 kg 72.6 kg General appearance: PRESENT: no acute distress Head exam: PRESENT: atraumatic, normocephalic Eye exam: PRESENT: conjunctiva pink. ABSENT: scleral icterus Ear exam: PRESENT: normal external ear exam Mouth exam: PRESENT: other - Endotracheal tube in place Neck exam: ABSENT: carotid bruit, JVD, lymphadenopathy Respiratory exam: PRESENT: symmetrical, wheezes - Still with faint wheezes bilaterally.. ABSENT: accessory muscle use, rales, rhonchi Cardiovascular exam: PRESENT: RRR, +S1, +S2 GI/Abdominal exam: PRESENT: normal bowel sounds, soft. ABSENT: distended, tenderness Rectal exam: PRESENT: deferred Gentrourinary exam: PRESENT: indwelling catheter Extremities exam: ABSENT: pedal edema Musculoskeletal exam: PRESENT: normal inspection Neurological exam: ABSENT: awake Psychiatric exam: ABSENT: agitated Focused psych exam: ABSENT: restlessness Results Laboratory Results: 07/20/18 03:00 07/20/18 03:00 07/20/18 07/20/18 03:00 03:00 WBC 10.5 RBC 4.44 Hgb 13.2 L Hct 38.7 MCV 87 MCH 29.7 MCHC 34.0 RDW 14.3 H Plt Count 194 Seg Neutrophils % Not Reportable Lymphocytes % Not Reportable Monocytes % Not Reportable Eosinophils % Not Reportable Basophils % Not Reportable Absolute Neutrophils Not Reportable Absolute Lymphocytes Not Reportable Absolute Monocytes Not Reportable Absolute Eosinophils Not Reportable Absolute Basophils Not Reportable Sodium 137.0 Potassium 4.2 Chloride 106 Carbon Dioxide 28 Anion Gap 3 L BUN 24 H Creatinine 0.75 Est GFR ( Amer) > 60 Est GFR (Non-Af Amer) > 60 Glucose 122 H Calcium 9.6 Magnesium 2.3 07/15/18 10:40 Blood Blood Culture - Final NO GROWTH IN 5 DAYS 07/15/18 09:01 Blood Blood Culture - Final NO GROWTH IN 5 DAYS 07/15/18 07/15/18 09:01 09:01 Creatine Kinase 364 H CK-MB (CK-2) 3.66 Troponin I < 0.012 Impressions: Soft Tissue Neck CT 07/15/18 00:00 IMPRESSION: NO SIGNIFICANT FINDING IN THE SOFT TISSUES OF THE NECK. MAXILLARY AND ETHMOID SINUS DISEASE. KUB X-Ray 07/15/18 10:00 IMPRESSION: THE TIP OF THE NASOGASTRIC TUBE IN THE STOMACH. NO RADIOGRAPHIC EVIDENCE FOR ACUTE ABDOMINAL DISEASE. Chest X-Ray 07/18/18 06:00 IMPRESSION: No significant change. Assessment and Plan - Diagnosis (1) Status asthmaticus Qualifiers: Asthma severity: severe Asthma persistence: persistent Qualified Code(s): J45.52 - Severe persistent asthma with status asthmaticus Is this a current diagnosis for this admission?: Yes Plan: 07/19/2018-the patient required intubation and is on high-dose steroids. He is on antibiotics as well. As noted above he tends to be very sensitive to the endotracheal tube and gets quite agitated while attempting pressure support trials. He may need a relatively short trial with extubation. Consider additional medications if needed. The patient does not have a prescription plan and is running out of medications. I explained to his fiance that we will try and work with a local pharmacy to find the most affordable regimen that treats his symptoms. 07/20/2018-the patient remains on 80 mg of Solu-Medrol every 8 hours. I have ad ded montelukast 10 mg daily. He is also on duo nebs and Pulmicort nebulizer treatments with Xopenex available as needed. He still has faint wheezes. We will begin to lighten his sedation and wean the patient. His most recent hospitalization with intubation in October revealed agitation during weaning. We may wean in intermittent windows if this occurs. (2) Acute asthma exacerbation Qualifiers: Asthma severity: moderate Asthma persistence: persistent Qualified Code(s): J45.41 - Moderate persistent asthma with (acute) exacerbation Is this a current diagnosis for this admission?: Yes Plan: As above (3) Acute respiratory failure with hypoxia Is this a current diagnosis for this admission?: Yes Plan: 07/19/2018-currently remains intubated. We will move towards pressure support trials with the view to extubation especially since there was no wheezing today. 07/20/2018-patient remains intubated and sedated. We will institute weaning trials. (4) Tobacco dependency Is this a current diagnosis for this admission?: Yes Plan: 07/19/2018-I stressed to the patient's fianc that he needs to stop smoking. She also smokes and has agreed to stop smoking with him. We did apply a nicotine patch to the patient as well. 07/20/2018-nicotine patches in use. - Time Time Spent with patient: 15-24 minutes Medications reviewed and adjusted accordingly: Yes
[2018-07-20] MEDS: LEVOFLOXACIN 750 MG/D5W RTU 750 MG/150 ML RTUPB IV SCH (11:33)
[2018-07-20] MEDS: NORMAL SALINE 1000 ML 1,000 ML IV PRN ×2 (11:40→23:18)
[2018-07-21] MEDS: PROPOFOL 1,000 MG/100 ML INFUS..BTL IV PRN ×6 (01:19→22:46)
[2018-07-21] MEDS: METHYLPREDNISOLONE INJ 125 MG/2 ML SDV IV SCH ×3 (01:22→17:03)
[2018-07-21] MEDS: IPRATROPIUM/ALBUTEROL 0.5-2.5 MG/3 ML AMPUL NEB SCH ×4 (02:31→19:58)
[2018-07-21] MEDS: MIDAZOLAM HCL 50 MG/100 ML RTUINJ IV PRN ×3 (03:15→20:04)
[2018-07-21] MEDS: MORPHINE SULFATE 10 MG/ML INJ IV PRN ×4 (03:27→18:01)
[2018-07-21] MEDS: HEPARIN SOD (PORCINE) 5,000 UNIT/ML 1 ML SYRINGE SUBCUT SCH ×3 (05:03→20:59)
--- NOTE | 2018-07-21 06:29 | RADIOLOGY REPORT (SQ) ---
EXAM DESCRIPTION: X-ray single view chest. CLINICAL HISTORY: 38 years Male, resp failure COMPARISON: 07/18/2018 and 07/17/2018 TECHNIQUE: Single portable x-ray view of the chest performed on 07/21/2018 at 6:03 AM FINDINGS: The lungs are well expanded and are clear. There is no evidence of a pneumothorax. The cardiac silhouette is normal in size and configuration. The mediastinal contours are normal. No acute osseous abnormality is identified. No focal soft tissue abnormalities are seen. Lines and tubes: The endotracheal tube and feeding tube are grossly stable. IMPRESSION: No evidence of acute intrathoracic disease. Grossly stable endotracheal tube and feeding tube.
[2018-07-21 07:11] LABS: ARTERIAL BLOOD BASE EXCESS 2.8 mmol/L; ARTERIAL BLOOD H2CO3 1.38 mmol/L (1.05-1.35); ARTERIAL BLOOD HCO3 28.1 mmol/L (20-24); ARTERIAL BLOOD O2 SATURATION 95.9 % (94-98); ARTERIAL BLOOD PCO2 45.9 mmHg (35-45); ARTERIAL BLOOD PH 7.41 (7.35-7.45); ARTERIAL BLOOD PO2 80.5 mmHg (80-100); ARTERIAL BLOOD TOTAL CO2 29.5 mmol/L (23-27)
[2018-07-21 07:14] LABS: ARTERIAL BLOOD FIO2 30%
[2018-07-21] MEDS: NORMAL SALINE 1000 ML 1,000 ML IV PRN ×2 (08:31→18:27)
[2018-07-21] MEDS: BUDESONIDE NEB 0.5 MG/2 ML AMPUL NEB SCH ×2 (08:40→19:59)
[2018-07-21] MEDS: NICOTINE 7 MG/24 HR PATCH.TD24 TD SCH (09:21)
[2018-07-21] MEDS: AMINO AC/PROTEIN HYDR/WHEY PRO 11 GM/45 ML PKT NG SCH ×3 (09:21→17:03)
[2018-07-21] MEDS: MONTELUKAST SODIUM 10 MG TABLET PO SCH (09:21)
[2018-07-21] MEDS: LEVOFLOXACIN 750 MG/D5W RTU 750 MG/150 ML RTUPB IV SCH (11:59)
[2018-07-21] MEDS: LORATADINE 10 MG TABLET PO SCH (11:59)
[2018-07-21] MEDS: HYDRALAZINE HCL INJ/PF 20 MG/1 ML SDV IV PRN (13:55)
[2018-07-22] MEDS: METHYLPREDNISOLONE INJ 125 MG/2 ML SDV IV SCH ×3 (02:17→17:28)
[2018-07-22] MEDS: IPRATROPIUM/ALBUTEROL 0.5-2.5 MG/3 ML AMPUL NEB SCH ×4 (02:30→20:47)
[2018-07-22] MEDS: PROPOFOL 1,000 MG/100 ML INFUS..BTL IV PRN ×3 (02:58→20:48)
[2018-07-22] MEDS: MORPHINE SULFATE 10 MG/ML INJ IV PRN (02:58)
[2018-07-22] MEDS: NORMAL SALINE 1000 ML 1,000 ML IV PRN ×3 (03:01→20:48)
[2018-07-22] MEDS: MIDAZOLAM HCL 50 MG/100 ML RTUINJ IV PRN ×2 (03:53→16:10)
[2018-07-22] MEDS: HEPARIN SOD (PORCINE) 5,000 UNIT/ML 1 ML SYRINGE SUBCUT SCH ×3 (05:07→22:03)
--- NOTE | 2018-07-22 08:29 | PDOC PROGRESS REPORT ---
Subjective Progress Note for:: 07/21/18 Subjective:: Still with minimal wheezes. The patient did wean for 4-6 hours yesterday. Every time we try and decrease the propofol and Versed he does get quite agitated. This is consistent with his last episode of intubation in [place] in October. Reason For Visit: ACUTE HYPOXIC RESPIRATORY FAILURE,STATUS Physical Exam Vital Signs: Temp Pulse Resp BP Pulse Ox 98.1 F 72 9 L 111/68 94 07/21/18 08:00 07/21/18 10:00 07/21/18 10:00 07/21/18 10:00 07/21/18 10:00 Intake & Output 07/20/18 07/21/18 07/22/18 06:59 06:59 06:59 Intake Total 2313 3144 1000 Output Total 0567 3770 10 990 Weight 72.6 kg 71.8 kg General appearance: PRESENT: no acute distress, other - Intubated and sedated Head exam: PRESENT: atraumatic, normocephalic Eye exam: PRESENT: conjunctiva pink. ABSENT: scleral icterus Mouth exam: PRESENT: other - Endotracheal tube in place Respiratory exam: PRESENT: symmetrical, wheezes - Still with faint intermittent wheeze. ABSENT: rhonchi, tachypnea Cardiovascular exam: PRESENT: RRR, +S1, +S2 GI/Abdominal exam: PRESENT: normal bowel sounds, soft. ABSENT: distended, tenderness Rectal exam: PRESENT: deferred Gentrourinary exam: PRESENT: indwelling catheter Extremities exam: ABSENT: pedal edema Musculoskeletal exam: PRESENT: normal inspection Neurological exam: ABSENT: awake - Intubated and sedated Psychiatric exam: ABSENT: agitated Focused psych exam: ABSENT: restlessness Results Laboratory Results: 07/20/18 03:00 07/20/18 03:00 07/21/18 07/21/18 06:10 07:00 Carbonic Acid Cancelled 1.38 H HCO3/H2CO3 Ratio Cancelled 20:1 ABG pH Cancelled 7.41 ABG pCO2 Cancelled 45.9 H ABG pO2 Cancelled 80.5 ABG HCO3 Cancelled 28.1 H ABG O2 Saturation Cancelled 95.9 ABG Base Excess Cancelled 2.8 FiO2 Cancelled 30% 07/15/18 10:40 Blood Blood Culture - Final NO GROWTH IN 5 DAYS 07/15/18 09:01 Blood Blood Culture - Final NO GROWTH IN 5 DAYS 07/15/18 07/15/18 09:01 09:01 Creatine Kinase 364 H CK-MB (CK-2) 3.66 Troponin I < 0.012 Impressions: Soft Tissue Neck CT 07/15/18 00:00 IMPRESSION: NO SIGNIFICANT FINDING IN THE SOFT TISSUES OF THE NECK. MAXILLARY AND ETHMOID SINUS DISEASE. KUB X-Ray 07/15/18 10:00 IMPRESSION: THE TIP OF THE NASOGASTRIC TUBE IN THE STOMACH. NO RADIOGRAPHIC EVIDENCE FOR ACUTE ABDOMINAL DISEASE. Chest X-Ray 07/21/18 06:00 IMPRESSION: No evidence of acute intrathoracic disease. Grossly stable endotracheal tube and feeding tube. Assessment and Plan - Diagnosis (1) Status asthmaticus Qualifiers: Asthma severity: severe Asthma persistence: persistent Qualified Code(s): J45.52 - Severe persistent asthma with status asthmaticus Is this a current diagnosis for this admission?: Yes Plan: 07/19/2018-the patient required intubation and is on high-dose steroids. He is on antibiotics as well. As noted above he tends to be very sensitive to the endotracheal tube and gets quite agitated while attempting pressure support trials. He may need a relatively short trial with extubation. Consider additional medications if needed. The patient does not have a prescription plan and is running out of medications. I explained to his fiance that we will try and work with a local pharmacy to find the most affordable regimen that treats his symptoms. 07/20/2018-the patient remains on 80 mg of Solu-Medrol every 8 hours. I have added montelukast 10 mg daily. He is also on duo nebs and Pulmicort nebulizer treatments with Xopenex available as needed. He still has faint wheezes. We will begin to lighten his sedation and wean the patient. His most recent hospitalization with intubation in October revealed agitation during weaning. We may wean in intermittent windows if this occurs. 07/21/2018-the patient lasted 6 hours on pressure support last night and then had to return to [facility]. We will try for our windows of weaning today. As noted above he may likely need to have a very short trial and be extubated because of his reaction to decreased sedation. He has only intermittent wheezing today. Continue current regimen. (2) Acute asthma exacerbation Qualifiers: Asthma severity: moderate Asthma persistence: persistent Qualified Code(s): J45.41 - Moderate persistent asthma with (acute) exacerbation Is this a current diagnosis for this admission?: Yes Plan: As above (3) Acute respiratory failure with hypoxia Is this a current diagnosis for this admission?: Yes Plan: 07/19/2018-currently remains intubated. We will move towards pressure support trials with the view to extubation especially since there was no wheezing today. 07/20/2018-patient remains intubated and sedated. We will institute weaning trials. 07/21/2018-we will try to 4-hour 1 dose of weaning today since he fatigued at 6 hours yesterday. If he does well then we may extubate tomorrow. (4) Tobacco dependency Is this a current diagnosis for this admission?: Yes Plan: 07/19/2018-I stressed to the patient's fianc that he needs to stop smoking. She also smokes and has agreed to stop smoking with him. We did apply a nicotine patch to the patient as well. 07/20/2018-nicotine patches in use. 07/21/2018-continue nicotine patch. - Time Time Spent with patient: 15-24 minutes Medications reviewed and adjusted accordingly: Yes Anticipated discharge: Home
--- NOTE | 2018-07-22 08:34 | PDOC PROGRESS REPORT ---
Subjective Progress Note for:: 07/22/18 Subjective:: Still with minimal wheezes. The patient did wean for 4-6 hours yesterday. Every time we try and decrease the propofol and Versed he does get quite agitated. This is consistent with his last episode of intubation in [place] in October. 07/22/2018-the patient's respiratory rate is 1218 with his set rate at 16. We will try weaning again with the goal of extubation today. Reason For Visit: ACUTE HYPOXIC RESPIRATORY FAILURE,STATUS Physical Exam Vital Signs: Temp Pulse Resp BP Pulse Ox 98.4 F 76 16 106/70 96 07/22/18 08:00 07/22/18 08:00 07/22/18 08:00 07/22/18 08:00 07/22/18 08:00 Intake & Output 07/21/18 07/22/18 07/23/18 06:59 06:59 06:59 Intake Total 3144 3577 115 Output Total 3770 2330 30 Balance -626 1247 85 Weight 71.8 kg 71.4 kg General appearance: PRESENT: no acute distress, well-developed Head exam: PRESENT: atraumatic, normocephalic Eye exam: PRESENT: conjunctiva pink. ABSENT: scleral icterus Ear exam: PRESENT: normal external ear exam Mouth exam: PRESENT: other - Endotracheal tube in place Neck exam: ABSENT: carotid bruit, JVD, lymphadenopathy Respiratory exam: PRESENT: symmetrical, wheezes - Faint intermittent expiratory wheeze noted. ABSENT: chest wall tenderness, prolonged expiratory phas, rales, rhonchi, tachypnea Cardiovascular exam: PRESENT: RRR, +S1, +S2, systolic murmur - 1/6 GI/Abdominal exam: PRESENT: normal bowel sounds, soft, other - Nasogastric tube in place.. ABSENT: distended, tenderness Rectal exam: PRESENT: deferred Gentrourinary exam: PRESENT: indwelling catheter Extremities exam: ABSENT: joint swelling, pedal edema Musculoskeletal exam: PRESENT: normal inspection Neurological exam: PRESENT: other - Intubated and sedated Psychiatric exam: ABSENT: agitated Focused psych exam: ABSENT: restlessness Results Laboratory Results: 07/20/18 03:00 07/20/18 03:00 07/15/18 07/15/18 09:01 09:01 Creatine Kinase 364 H CK-MB (CK-2) 3.66 Troponin I < 0.012 Impressions: Soft Tissue Neck CT 07/15/18 00:00 IMPRESSION: NO SIGNIFICANT FINDING IN THE SOFT TISSUES OF THE NECK. MAXILLARY AND ETHMOID SINUS DISEASE. KUB X-Ray 07/15/18 10:00 IMPRESSION: THE TIP OF THE NASOGASTRIC TUBE IN THE STOMACH. NO RADIOGRAPHIC EVIDENCE FOR ACUTE ABDOMINAL DISEASE. Chest X-Ray 07/21/18 06:00 IMPRESSION: No evidence of acute intrathoracic disease. Grossly stable endotracheal tube and feeding tube. Assessment and Plan - Diagnosis (1) Status asthmaticus Qualifiers: Asthma severity: severe Asthma persistence: persistent Qualified Code(s): J45.52 - Severe persistent asthma with status asthmaticus Is this a current diagnosis for this admission?: Yes Plan: 07/19/2018-the patient required intubation and is on high-dose steroids. He is on antibiotics as well. As noted above he tends to be very sensitive to the endotracheal tube and gets quite agitated while attempting pressure support trials. He may need a relatively short trial with extubation. Consider additional medications if needed. The patient does not have a prescription plan and is running out of medications. I explained to his fiance that we will try and work with a local pharmacy to find the most affordable regimen that treats his symptoms. 07/20/2018-the patient remains on 80 mg of Solu-Medrol every 8 hours. I have added montelukast 10 mg daily. He is also on duo nebs and Pulmicort nebulizer treatments with Xopenex available as needed. He still has faint wheezes. We will begin to lighten his sedation and wean the patient. His most recent hospitalization with intubation in October revealed agitation during weaning. We may wean in intermittent windows if this occurs. 07/21/2018-the patient lasted 6 hours on pressure support last night and then had to return to [facility]. We will try for our windows of weaning today. As noted above he may likely need to have a very short trial and be extubated because of his reaction to decreased sedation. He has only intermittent wheezing today. Continue current regimen. 07/22/2018-hardly any wheezes today. We will wean from sedation and likely be able to extubate the patient. Continue steroids and inhaler regimen as well as antihistamines (2) Acute asthma exacerbation Qualifiers: Asthma severity: moderate Asthma persistence: persistent Qualified Code(s): J45.41 - Moderate persistent asthma with (acute) exacerbation Is this a current diagnosis for this admission?: Yes Plan: As above 07/22/2018-as discussed with the patient's fianc he will need compliance with an outpatient regimen. He has already been intubated in October and again in July. (3) Acute respiratory failure with hypoxia Is this a current diagnosis for this admission?: Yes Plan: 07/19/2018-currently remains intubated. We will move towards pressure support trials with the view to extubation especially since there was no wheezing today. 07/20/2018-patient remains intubated and sedated. We will institute weaning trials. 07/21/2018-we will try to 4-hour 1 dose of weaning today since he fatigued at 6 hours yesterday. If he does well then we may extubate tomorrow. 07/22/2018-the patient did well yesterday. We will try and wean to extubation today. (4) Tobacco dependency Is this a current diagnosis for this admission?: Yes Plan: 07/19/2018-I stressed to the patient's fianc that he needs to stop smoking. She also smokes and has agreed to stop smoking with him. We did apply a nicotine patch to the patient as well. 07/20/2018-nicotine patches in use. 07/21/2018-continue nicotine patch. As above - Time Time Spent with patient: 15-24 minutes Medications reviewed and adjusted accordingly: Yes Anticipated discharge: Home
[2018-07-22] MEDS: BUDESONIDE NEB 0.5 MG/2 ML AMPUL NEB SCH ×2 (08:35→20:47)
[2018-07-22] MEDS ORDERED: POTASSIUM CHLORIDE 20 MEQ/50 ML RTU IV SCH (09:00)
[2018-07-22] MEDS: MONTELUKAST SODIUM 10 MG TABLET PO SCH (10:24)
[2018-07-22] MEDS: LORATADINE 10 MG TABLET PO SCH (10:24)
[2018-07-22] MEDS: NICOTINE 7 MG/24 HR PATCH.TD24 TD SCH (10:25)
[2018-07-22] MEDS ORDERED: FLUMAZENIL INJ 0.5 MG/5 ML VIAL ONE (10:53)
[2018-07-22] MEDS ORDERED: HALOPERIDOL LACTATE INJ 5 MG/1 ML VIAL ONE (10:56)
[2018-07-22] MEDS ORDERED: METOPROLOL TARTRATE PF/INJ 5 MG/5 ML SDV IV ONE (11:00)
[2018-07-22] MEDS ORDERED: ENALAPRILAT DIHYDRATE INJ/PF 2.5 MG/2 ML SDV IV ONE (11:10)
[2018-07-22] MEDS ORDERED: PROPOFOL INJ 200 MG/20 ML VIAL IV ONE (11:30)
[2018-07-22] MEDS: AMINO AC/PROTEIN HYDR/WHEY PRO 11 GM/45 ML PKT NG SCH (11:51)
[2018-07-22] MEDS ORDERED: PHARMACY COMMUNICATION ORDER MC NR (12:00)
--- NOTE | 2018-07-22 12:16 | RADIOLOGY REPORT (SQ) ---
EXAM DESCRIPTION: KUB/ABDOMEN (SINGLE VIEW) COMPLETED DATE/TIME: 07/22/2018 11:48 am REASON FOR STUDY: NG Tube Placement COMPARISON: None. NUMBER OF VIEWS: One view. TECHNIQUE: Supine radiographic image of the abdomen acquired. LIMITATIONS: None. FINDINGS: There is evidence of a NG tube overlying the body of the stomach. IMPRESSION: NG tube overlying stomach. TECHNICAL DOCUMENTATION: JOB ID: [id number] [employer]- All Rights Reserved Reading location - IP/workstation name: [email or web address]
--- NOTE | 2018-07-22 12:19 | RADIOLOGY REPORT (SQ) ---
EXAM DESCRIPTION: CHEST SINGLE VIEW COMPLETED DATE/TIME: 07/22/2018 11:48 am REASON FOR STUDY: Re- Intubated, Placement Of ET Tube COMPARISON: AP chest 07/21/2018, 07/18/2018, 07/17/2018 CT chest 06/01/2018 EXAM PARAMETERS: NUMBER OF VIEWS: One view. TECHNIQUE: Single frontal radiographic view of the chest acquired. RADIATION DOSE: NA LIMITATIONS: None. FINDINGS: LUNGS AND PLEURA: Endotracheal tube tip 5 to 6 cm above the hawa. Nasogastric tube tip and side port below the hemidiaphragms. Minimal left retrocardiac atelectasis. Lungs are otherwise well inflated and grossly clear. MEDIASTINUM AND HILAR STRUCTURES: No masses. Contour normal. HEART AND VASCULAR STRUCTURES: Heart normal in size. Normal vasculature. BONES: No acute findings. HARDWARE: Endotracheal tube and nasogastric tube in good positioning OTHER: No other significant finding. IMPRESSION: Endotracheal tube and nasogastric tube in good positioning. Minimal left basilar atelectasis. TECHNICAL DOCUMENTATION: JOB ID: [id number] [employer]- All Rights Reserved Reading location - IP/workstation name: [email or web address]
--- NOTE | 2018-07-22 13:15 | RADIOLOGY REPORT (SQ) ---
EXAM DESCRIPTION: KUB/ABDOMEN (SINGLE VIEW) COMPLETED DATE/TIME: 07/22/2018 1:05 pm REASON FOR STUDY: Reinserted NG Tube. Placement of NG Please COMPARISON: 07/22/2018 NUMBER OF VIEWS: One view. TECHNIQUE: Supine radiographic image of the abdomen acquired. LIMITATIONS: None. FINDINGS: BOWEL GAS PATTERN: Normal bowel gas pattern. No dilated loops. CALCIFICATIONS: No suspicious calcifications. SOFT TISSUES: No gross mass or suggestion of organomegaly. HARDWARE: Nasogastric tube tip in the body of the stomach. BONES: No acute fracture. No worrisome bone lesions. OTHER: No other significant finding. IMPRESSION: Nasogastric tube tip in the body of the stomach. TECHNICAL DOCUMENTATION: JOB ID: [id number] [employer]- All Rights Reserved Reading location - IP/workstation name: [email or web address]
[2018-07-22] MEDS: HYDRALAZINE HCL INJ/PF 20 MG/1 ML SDV IV PRN (14:26)
[2018-07-22] MEDS ORDERED: MIDAZOLAM HCL 50 MG/100 ML RTUINJ ONE (15:19)
--- NOTE | 2018-07-22 16:54 | PDOC PROGRESS REPORT ---
Subjective Progress Note for:: 07/22/18 Subjective:: The patient was doing well on pressure support. And we did attempt extubation. The patient failed extubation. Reason For Visit: ACUTE HYPOXIC RESPIRATORY FAILURE,STATUS Physical Exam Vital Signs: Temp Pulse Resp BP Pulse Ox 99.5 F 88 16 159/88 H 97 07/22/18 14:00 07/22/18 14:19 07/22/18 15:21 07/22/18 15:21 07/22/18 16:18 Intake & Output 07/21/18 07/22/18 07/23/18 06:59 06:59 06:59 Intake Total 3144 3577 1068 Output Total 3770 2330 1500 Balance -626 1247 -432 Weight 71.8 kg 71.4 kg General appearance: PRESENT: severe distress, well-developed, other - Immediately after extubation the patient seemed relaxed and breathing comfortably. Within a very short time the patient became markedly tachypneic using accessory muscles for breathing. There were lots of secretions noted. His oxygen saturation dropped precipitously. We first tried BiPAP to replace the facial tent. This did not help and he required bagging. Intermittent suction was utilized. The patient was extremely restless. He became quite tachycardic and hypertensive. He was given IV Lopressor as well as IV enalapril. This settled his heart rate and blood pressure to reasonable levels. With the bag mask valve we were able to maintain saturation at approximately 90%. Respiratory exam: PRESENT: accessory muscle use, wheezes, other - Extremely limited inspiratory phase with marked tachypnea Cardiovascular exam: PRESENT: tachycardia - Marked tachycardia with pulse rate above 150 Results Laboratory Results: 07/20/18 03:00 07/20/18 03:00 07/15/18 07/15/18 09:01 09:01 Creatine Kinase 364 H CK-MB (CK-2) 3.66 Troponin I < 0.012 Impressions: Soft Tissue Neck CT 07/15/18 00:00 IMPRESSION: NO SIGNIFICANT FINDING IN THE SOFT TISSUES OF THE NECK. MAXILLARY AND ETHMOID SINUS DISEASE. Chest X-Ray 07/22/18 11:16 IMPRESSION: Endotracheal tube and nasogastric tube in good positioning. Minimal left basilar atelectasis. KUB X-Ray 07/22/18 12:19 IMPRESSION: Nasogastric tube tip in the body of the stomach. Assessment and Plan - Diagnosis (1) Status asthmaticus Qualifiers: Asthma severity: severe Asthma persistence: persistent Qualified Code(s): J45.52 - Severe persistent asthma with status asthmaticus Is this a current diagnosis for this admission?: Yes (2) Acute asthma exacerbation Qualifiers: Asthma severity: moderate Asthma persistence: persistent Qualified Code(s ): J45.41 - Moderate persistent asthma with (acute) exacerbation Is this a current diagnosis for this admission?: Yes (3) Acute respiratory failure with hypoxia Is this a current diagnosis for this admission?: Yes (4) Tobacco dependency Is this a current diagnosis for this admission?: Yes - Plan Summary Plan Summary: It was decided that the patient would need to be reintubated. Anesthesia had been called. Because the patient was a difficult intubation initially I deferred to anesthesia. Anesthesiology got there. The patient was sedated and intubation was successful. Anesthesia then stated to check the chest x-ray. The ET tube had to be advanced but was finally in a satisfactory position. Nasogastric tube was placed but this was displaced with retching and coughing. Another tube was inserted. Position was confirmed with x-ray. The patient will return to his SIMV settings. He will be back on propofol and Versed. All of his respiratory treatments will remain in place. I discussed the case with respiratory therapy. Later this afternoon we will attempt a 4- hour weaning trial of pressure support. For tomorrow we will institute to 4- hour window so as not to overexert the patient. He will likely remain intubated through the weekend as a third intubation will be extremely traumatic. After the patient was stable I did go out and talk to his fiance. I explained that unfortunately he did not tolerate extubation and was reintubated but assured her that he was back on his settings and stable. Critical care time was 45 minutes. This included monitoring the patient. Stabilizing while anesthesia responded. Administration of medication for hypertension and tachycardia. Resuming medications and ventilator settings
[2018-07-22] MEDS ORDERED: ACETAMINOPHEN 650 MG SUPP.RECT PR PRN (18:20)
[2018-07-22] MEDS ORDERED: CARBOXYMETHYLCELLULOSE SOD 0.5% 0.4 ML DROPERETTE OU PRN (18:23)
[2018-07-22] MEDS ORDERED: MORPHINE SULFATE 10 MG/ML INJ IV PRN (18:24)
[2018-07-22] MEDS ORDERED: ACETAMINOPHEN 650 MG SUPP.RECT PR ONE ×2 (18:26→18:56)
[2018-07-22] MEDS ORDERED: ENALAPRILAT DIHYDRATE INJ/PF 1.25 MG/1 ML SDV IV PRN (18:30)
[2018-07-22] MEDS ORDERED: VANCOMYCIN HCL 0 MG in DEXTROSE 5%-WATER 250 ML IV NR (18:30)
[2018-07-22] MEDS ORDERED: METOPROLOL TARTRATE PF/INJ 5 MG/5 ML SDV IV PRN (18:33)
[2018-07-22 19:21] LABS: HEMATOCRIT 42.3 % (37.9-51.0); MEAN CORPUSCULAR HGB CONC 33.2 g/dL (32.0-36.0); MEAN CORPUSCULAR VOLUME 87 fl (80-97); PLATELET COUNT 236 10^3/uL (150-450); RED BLOOD COUNT 4.84 10^6/uL (4.35-5.55); RED CELL DISTRIBUTION WIDTH 14.6 % (11.5-14.0); WHITE BLOOD COUNT 18.5 10^3/uL (4.0-10.5)
[2018-07-22 19:32] LABS: ANION GAP 6 (5-19); BLOOD UREA NITROGEN 23 mg/dL (7-20); CARBON DIOXIDE 27 mmol/L (22-30); CHLORIDE 106 mmol/L (98-107); GLUCOSE 93 mg/dL (75-110); POTASSIUM 3.6 mmol/L (3.6-5.0); SODIUM 138.8 mmol/L (137-145)
[2018-07-22 19:43] LABS: ABSOLUTE LYMPHOCYTES# (MANUAL) 0.6 10^3/uL (0.5-4.7); ABSOLUTE MONOCYTES # (MANUAL) 2.2 10^3/uL (0.1-1.4); ABSOLUTE NEUTROPHILS# (MANUAL) 15.7 10^3/uL (1.7-8.2); BASOPHILS % (MANUAL) 0 % (0-2); EOSINOPHILS % (MANUAL) 0 % (0-6); LYMPHOCYTES % (MANUAL) 3 % (13-45); MONOCYTES % (MANUAL) 12 % (3-13); SEGMENTED NEUTROPHILS % (MAN) 85 % (42-78); TOTAL CELLS COUNTED 100
[2018-07-22 19:46] LABS: PLATELET COMMENT ADEQUATE
[2018-07-22 19:47] LABS: ANISOCYTOSIS SLIGHT
[2018-07-22 19:48] LABS: STOMATOCYTES SLIGHT
[2018-07-22] MEDS ORDERED: PIPERACILLIN/TAZOBACTAM 3.375 GM VIAL IV PRN (19:49)
[2018-07-22] MEDS ORDERED: PIPERACILLIN SODIUM/TAZOBACTAM 3.375 GM in NORMAL SALINE 100 ML IV ONE (20:00)
[2018-07-22] MEDS: GUAIFENESIN SYRP 200 MG/10 ML UDC NG SCH (22:02)
[2018-07-22] MEDS ORDERED: VANCOMYCIN HCL INJ 1000 MG VIAL ONE (22:12)
[2018-07-22] MEDS: VANCOMYCIN HCL INJ 1000 MG VIAL IV PRN (22:17)
[2018-07-22] MEDS: VANCOMYCIN HCL 1,000 MG in DEXTROSE 5%-WATER 250 ML IV SCH (22:18)
[2018-07-23] MEDS: MIDAZOLAM HCL 50 MG/100 ML RTUINJ IV PRN ×2 (00:03→12:46)
[2018-07-23] MEDS: PROPOFOL 1,000 MG/100 ML INFUS..BTL IV PRN ×5 (01:34→20:12)
[2018-07-23] MEDS: METHYLPREDNISOLONE INJ 125 MG/2 ML SDV IV SCH ×3 (01:34→17:02)
[2018-07-23] MEDS: IPRATROPIUM/ALBUTEROL 0.5-2.5 MG/3 ML AMPUL NEB SCH ×4 (01:51→20:56)
[2018-07-23] MEDS ORDERED: PIPERACILLIN/TAZOBACTAM 3.375 GM VIAL IV ONE (02:43)
[2018-07-23] MEDS: PIPERACILLIN SODIUM/TAZOBACTAM 3.375 GM in NORMAL SALINE 100 ML IV SCH ×4 (03:00→20:14)
[2018-07-23 04:09] LABS: HEMATOCRIT 38.9 % (37.9-51.0); HEMOGLOBIN 13.1 g/dL (13.5-17.0); MEAN CORPUSCULAR HEMOGLOBIN 29.4 pg (27.0-33.4); MEAN CORPUSCULAR HGB CONC 33.7 g/dL (32.0-36.0); MEAN CORPUSCULAR VOLUME 87 fl (80-97); PLATELET COUNT 194 10^3/uL (150-450); RED BLOOD COUNT 4.47 10^6/uL (4.35-5.55); WHITE BLOOD COUNT 14.3 10^3/uL (4.0-10.5)
[2018-07-23 04:10] LABS: ALANINE AMINOTRANSFERASE 47 U/L (21-72); ALBUMIN 2.9 g/dL (3.5-5.0); ALKALINE PHOSPHATASE 37 U/L (38-126); ANION GAP 5 (5-19); ASPARTATE AMINO TRANSFERASE 19 U/L (17-59); BILIRUBIN,DIRECT 0.4 mg/dL (0.0-0.4); BILIRUBIN,TOTAL 0.5 mg/dL (0.2-1.3); BLOOD UREA NITROGEN 23 mg/dL (7-20); CALCIUM 8.4 mg/dL (8.4-10.2); CARBON DIOXIDE 27 mmol/L (22-30); CHLORIDE 106 mmol/L (98-107); GLUCOSE 95 mg/dL (75-110); POTASSIUM 3.5 mmol/L (3.6-5.0); SODIUM 138.4 mmol/L (137-145); TOTAL PROTEIN 5.5 g/dL (6.3-8.2)
[2018-07-23 04:25] LABS: ABSOLUTE NEUTROPHILS# (MANUAL) 12.3 10^3/uL (1.7-8.2); BAND NEUTROPHILS % (MANUAL) 1 % (3-5); BASOPHILS % (MANUAL) 0 % (0-2); EOSINOPHILS % (MANUAL) 0 % (0-6); LYMPHOCYTES % (MANUAL) 5 % (13-45); MONOCYTES % (MANUAL) 7 % (3-13); PLATELET COMMENT ADEQUATE; RBC MORPHOLOGY COMMENT NORMO-CYTIC/CHROMIC; SEGMENTED NEUTROPHILS % (MAN) 85 % (42-78); TOTAL CELLS COUNTED 100; TOXIC VACUOLATION PRESENT
[2018-07-23 04:55] LABS: ARTERIAL BLOOD BASE EXCESS 4.1 mmol/L; ARTERIAL BLOOD FIO2 30%; ARTERIAL BLOOD H2CO3 1.15 mmol/L (1.05-1.35); ARTERIAL BLOOD HCO3 27.8 mmol/L (20-24); ARTERIAL BLOOD O2 SATURATION 97.7 % (94-98); ARTERIAL BLOOD PCO2 38.3 mmHg (35-45); ARTERIAL BLOOD PH 7.48 (7.35-7.45); ARTERIAL BLOOD PO2 94.8 mmHg (80-100); ARTERIAL BLOOD TOTAL CO2 28.9 mmol/L (23-27)
[2018-07-23] MEDS: HEPARIN SOD (PORCINE) 5,000 UNIT/ML 1 ML SYRINGE SUBCUT SCH ×3 (05:09→21:33)
[2018-07-23] MEDS: VANCOMYCIN HCL INJ 1000 MG VIAL IV PRN (05:09)
[2018-07-23] MEDS: PANTOPRAZOLE SODIUM 40 MG PACKET.DR NG SCH ×2 (05:10→17:02)
[2018-07-23] MEDS: VANCOMYCIN HCL 1,000 MG in DEXTROSE 5%-WATER 250 ML IV SCH ×3 (05:10→21:32)
--- NOTE | 2018-07-23 07:37 | RADIOLOGY REPORT (SQ) ---
EXAM DESCRIPTION: XR CHEST 1 VIEW COMPLETED DATE/TME: 07/23/2018 06:00 CLINICAL HISTORY: 38 years Male, Mechanical ventilation COMPARISON: One day prior. NUMBER OF VIEWS/TECHNIQUE: 1/AP FINDINGS: Adequate appearing endotracheal tube. Adequate appearing enteric tube partially obscured. Small blunting-effusion of the right costophrenic angle. Normal cardiac silhouette size. No pneumothorax. Stable bony thorax. IMPRESSION: No significant change.
[2018-07-23] MEDS: BUDESONIDE NEB 0.5 MG/2 ML AMPUL NEB SCH ×2 (08:44→20:56)
[2018-07-23] MEDS ORDERED: BISACODYL 10 MG SUPP.RECT PR PRN (09:58)
[2018-07-23] MEDS: GUAIFENESIN SYRP 200 MG/10 ML UDC NG SCH ×4 (10:02→21:32)
[2018-07-23] MEDS: LORATADINE 10 MG TABLET NG SCH (10:02)
[2018-07-23] MEDS: MONTELUKAST SODIUM 10 MG TABLET NG SCH (10:02)
[2018-07-23] MEDS: NICOTINE 7 MG/24 HR PATCH.TD24 TD SCH (10:04)
[2018-07-23] MEDS: DOCUSATE SODIUM 100 MG/10 ML UDC NG SCH ×2 (11:37→17:03)
[2018-07-23] MEDS: DIPHENHYDRAMINE HCL 50 MG/ML VIAL IV PRN (14:12)
[2018-07-23] MEDS: SCOPOLAMINE HYDROBROMIDE 1.5 MG PATCH.TD72 TD SCH (14:13)
[2018-07-23] MEDS ORDERED: POTASSI CL 20 MEQ/50 ML RIDER 20 MEQ/50 ML RTUPB IV ONE (14:58)
--- NOTE | 2018-07-23 15:01 | PDOC PROGRESS REPORT ---
Subjective Progress Note for:: 07/23/18 Subjective:: The patient is resting comfortably this morning. He is on SIMV breathing slightly above the set rate of 16. We will resume 4-hour trials of pressure support weaning. Reason For Visit: ACUTE HYPOXIC RESPIRATORY FAILURE,STATUS Physical Exam Vital Signs: Temp Pulse Resp BP Pulse Ox 99.1 F 78 16 97/58 L 96 07/23/18 08:00 07/23/18 08:45 07/23/18 08:45 07/23/18 08:00 07/23/18 08:45 Intake & Output 07/22/18 07/23/18 07/24/18 06:59 06:59 06:59 Intake Total 3577 2811 75 Output Total 2330 4065 75 Balance 1247 -1254 0 Weight 71.4 kg 70.1 kg General appearance: PRESENT: no acute distress, well-developed Head exam: PRESENT: atraumatic, normocephalic Eye exam: PRESENT: conjunctiva pink, other - Conjunctiva slightly dry. ABSENT: scleral icterus Ear exam: PRESENT: normal external ear exam Mouth exam: PRESENT: other - Endotracheal tube in place Throat exam: PRESENT: other - Nasogastric tube in place Respiratory exam: PRESENT: clear to auscultation fabi, symmetrical. ABSENT: accessory muscle use, rales, rhonchi, stridor, wheezes Cardiovascular exam: PRESENT: RRR, +S1, +S2 GI/Abdominal exam: PRESENT: hypoactive bowel sounds, soft. ABSENT: distended, organolmegaly, tenderness Rectal exam: PRESENT: deferred Gentrourinary exam: PRESENT: indwelling catheter Extremities exam: ABSENT: pedal edema Musculoskeletal exam: PRESENT: normal inspection Neurological exam: PRESENT: awake, other - Makes an effort to squeeze her hand on command.. ABSENT: alert - Somnolent. Psychiatric exam: PRESENT: other - Sedated. ABSENT: agitated Focused psych exam: ABSENT: restlessness Results Laboratory Results: 07/23/18 03:31 07/23/18 03:31 07/22/18 07/22/18 07/23/18 19:00 19:06 03:31 WBC 18.5 H 14.3 H RBC 4.84 4.47 Hgb 14.0 13.1 L Hct 42.3 38.9 MCV 87 87 MCH 29.0 29.4 MCHC 33.2 33.7 RDW 14.6 H 14.0 Plt Count 236 194 Seg Neutrophils % Not Reportable Not Reportable Lymphocytes % Not Reportable Not Reportable Monocytes % Not Reportable Not Reportable Eosinophils % Not Reportable Not Reportable Basophils % Not Reportable Not Reportable Absolute Neutrophils Not Reportable Not Reportable Absolute Lymphocytes Not Reportable Not Reportable Absolute Monocytes Not Reportable Not Reportable Absolute Eosinophils Not Reportable Not Reportable Absolute Basophils Not Reportable Not Reportable Carbonic Acid HCO3/H2CO3 Ratio ABG pH ABG pCO2 ABG pO2 ABG HCO3 ABG O2 Saturation ABG Base Excess FiO2 Sodium 138.8 Potassium 3.6 Chloride 106 Carbon Dioxide 27 Anion Gap 6 BUN 23 H Creatinine 0.70 Est GFR ( Amer) > 60 Est GFR (Non-Af Amer) > 60 Glucose 93 Calcium 9.0 Total Bilirubin AST ALT Alkaline Phosphatase Total Protein Albumin 07/23/18 07/23/18 03:31 04:40 WBC RBC Hgb Hct MCV MCH MCHC RDW Plt Count Seg Neutrophils % Lymphocytes % Monocytes % Eosinophils % Basophils % Absolute Neutrophils Absolute Lymphocytes Absolute Monocytes Absolute Eosinophils Absolute Basophils Carbonic Acid 1.15 HCO3/H2CO3 Ratio 24:1 ABG pH 7.48 H ABG pCO2 38.3 ABG pO2 94.8 ABG HCO3 27.8 H ABG O2 Saturation 97.7 ABG Base Excess 4.1 FiO2 30% Sodium 138.4 Potassium 3.5 L Chloride 106 Carbon Dioxide 27 Anion Gap 5 BUN 23 H Creatinine 0.79 Est GFR ( Amer) > 60 Est GFR (Non-Af Amer) > 60 Glucose 95 Calcium 8.4 Total Bilirubin 0.5 AST 19 ALT 47 Alkaline Phosphatase 37 L Total Protein 5.5 L Albumin 2.9 L 07/15/18 07/15/18 09:01 09:01 Creatine Kinase 364 H CK-MB (CK-2) 3.66 Troponin I < 0.012 Impressions: Soft Tissue Neck CT 07/15/18 00:00 IMPRESSION: NO SIGNIFICANT FINDING IN THE SOFT TISSUES OF THE NECK. MAXILLARY AND ETHMOID SINUS DISEASE. KUB X-Ray 07/22/18 12:19 IMPRESSION: Nasogastric tube tip in the body of the stomach. Chest X-Ray 07/23/18 06:00 IMPRESSION: No significant change. Assessment and Plan - Diagnosis (1) Status asthmaticus Qualifiers: Asthma severity: severe Asthma persistence: persistent Qualified Code(s): J45.52 - Severe persistent asthma with status asthmaticus Is this a current diagnosis for this admission?: Yes Plan: 07/19/2018-the patient required intubation and is on high-dose steroids. He is on antibiotics as well. As noted above he tends to be very sensitive to the endotracheal tube and gets quite agitated while attempting pressure support trials. He may need a relatively short trial with extubation. Consider additional medications if needed. The patient does not have a prescription plan and is running out of medications. I explained to his fiance that we will try and work with a local pharmacy to find the most affordable regimen that treats his symptoms. 07/20/2018-the patient remains on 80 mg of Solu-Medrol every 8 hours. I have added montelukast 10 mg daily. He is also on duo nebs and Pulmicort nebulizer treatments with Xopenex available as needed. He still has faint wheezes. We will begin to lighten his sedation and wean the patient. His most recent hospitalization with intubation in October revealed agitation during weaning. We may wean in intermittent windows if this occurs. 07/21/2018-the patient lasted 6 hours on pressure support last night and then had to return to SIMV. We will try for our windows of weaning today. As noted above he may likely need to have a very short trial and be extubated because of his reaction to decreased sedation. He has only intermittent wheezing today. Continue current regimen. 07/22/2018-hardly any wheezes today. We will wean from sedation and likely be able to extubate the patient. Continue steroids and inhaler regimen as well as antihistamines July 23, 2018-the patient failed extubation yesterday. He appears to be comfortable for several minutes but then began having shortness of breath. He was using accessory muscles. He needed support with the bag mask valve to maintain saturations. Once it was clear that he would not tolerate being extubated anesthesia was able to reintubate the patient. He was returned to his previous regimen of steroids and inhaler therapy and was placed back on SIMV. (2) Acute asthma exacerbation Qualifiers: Asthma severity: moderate Asthma persistence: persistent Qualified Code(s): J45.41 - Moderate persistent asthma with (acute) exacerbation Is this a current diagnosis for this admission?: Yes Plan: As above 07/22/2018-as discussed with the patient's fianc he will need compliance with an outpatient regimen. He has already been intubated in October and again in July. 07/23/2018-the patient failed extubation yesterday. Now that he is reintubated, continue weaning trials as well as aggressive nebulizer treatments, steroids, montelukast and loratadine. (3) Acute respiratory failure with hypoxia Is this a current diagnosis for this admission?: Yes Plan: 07/19/2018-currently remains intubated. We will move towards pressure support trials with the view to extubation especially since there was no wheezing today. 07/20/2018-patient remains intubated and sedated. We will institute weaning trials. 07/21/2018-we will try to 4-hour 1 dose of weaning today since he fatigued at 6 hours yesterday. If he does well then we may extubate tomorrow. 07/22/2018-the patient did well yesterday. We will try and wean to extubation today. 07/23/2018-after failing extubation yesterday the patient was reintubated. Repeat x-ray revealed no obvious infiltrate however when he was extubated there were copious amounts of secretions. Even after reintubation he had vomiting of copious mucus material. There was such force that the nasogastric tube was displaced. After reintubation he was rested on SIMV overnight. This morning he is exhibiting clear lungs. There has not been much in the way of endotracheal secretions. He is still having increased oral secretions. I have added a scopolamine patch to try and decrease secretions. Also, because of the events of yesterday and the high likelihood that he aspirated mucus or materials he is now on antibiotic therapy. He did spike a temperature yesterday after reintubation. Sputum culture is pending but the Gram stain showed 4+ white blood cells. We will again initiate for windows of weaning so was not to exhaust the patient. (4) Tobacco dependency Is this a current diagnosis for this admission?: Yes Plan: 07/19/2018-I stressed to the patient's fianc that he needs to stop smoking. She also smokes and has agreed to stop smoking with him. We did apply a nicotine patch to the patient as well. 07/20/2018-nicotine patches in use. 07/21/2018-continue nicotine patch. As above (5) Hypokalemia Is this a current diagnosis for this admission?: Yes Plan: The patient's potassium is under the lower limit of normal. I will administer 20 mEq of potassium chloride by intravenous and place the patient on electrolyte replacement protocol. (6) Hypertension Is this a current diagnosis for this admission?: Yes Plan: 07/23/2018-the patient exhibited marked hypertension as well as tachycardia during the post extubation window. This was likely due to stress. He responded well to IV enalapril. He has several medications available as needed however his blood pressure has been stable. - Time Time Spent with patient: 25-34 minutes Medications reviewed and adjusted accordingly: Yes - Plan Summary Plan Summary: failed weaning this am.
--- NOTE | 2018-07-23 15:47 | PDOC PROGRESS REPORT ---
Subjective Progress Note for:: 07/23/18 Subjective:: I was notified that the patient completely failed his initial pressure support trial. The ventilator was set at 16 and he was only breathing at 6. Return to the ICU to reassess patient. Reason For Visit: ACUTE HYPOXIC RESPIRATORY FAILURE,STATUS Physical Exam Vital Signs: Temp Pulse Resp BP Pulse Ox 99.7 F 86 17 115/80 96 07/23/18 14:00 07/23/18 14:35 07/23/18 14:35 07/23/18 14:22 07/23/18 14:35 Intake & Output 07/22/18 07/23/18 07/24/18 06:59 06:59 06:59 Intake Total 3577 2811 417 Output Total 2330 4065 940 Balance 8925 -3047 -758 Weight 71.4 kg 70.1 kg General appearance: PRESENT: no acute distress, other - The patient was lethargic. Eye exam: PRESENT: other - Eyes barely open to verbal stimulus. Mouth exam: PRESENT: other - Endotracheal tube in place Neck exam: PRESENT: other - No subcutaneous emphysema. ABSENT: tenderness Respiratory exam: PRESENT: clear to auscultation fabi - Lungs in fact were clear bilaterally, symmetrical. ABSENT: rales, rhonchi, wheezes Cardiovascular exam: PRESENT: RRR, +S1, +S2. ABSENT: tachycardia GI/Abdominal exam: PRESENT: normal bowel sounds, soft, other - Old blood noted in the nasogastric tube. This was present at my initial visit earlier today.. ABSENT: distended, tenderness Extremities exam: ABSENT: pedal edema Neurological exam: PRESENT: altered - He is quite lethargic. Psychiatric exam: ABSENT: agitated Focused psych exam: ABSENT: restlessness Results Laboratory Results: 07/23/18 03:31 07/23/18 03:31 07/22/18 07/22/18 07/23/18 19:00 19:06 03:31 WBC 18.5 H 14.3 H RBC 4.84 4.47 Hgb 14.0 13.1 L Hct 42.3 38.9 MCV 87 87 MCH 29.0 29.4 MCHC 33.2 33.7 RDW 14.6 H 14.0 Plt Count 236 194 Seg Neutrophils % Not Reportable Not Reportable Lymphocytes % Not Reportable Not Reportable Monocytes % Not Reportable Not Reportable Eosinophils % Not Reportable Not Reportable Basophils % Not Reportable Not Reportable Absolute Neutrophils Not Reportable Not Reportable Absolute Lymphocytes Not Reportable Not Reportable Absolute Monocytes Not Reportable Not Reportable Absolute Eosinophils Not Reportable Not Reportable Absolute Basophils Not Reportable Not Reportable Carbonic Acid HCO3/H2CO3 Ratio ABG pH ABG pCO2 ABG pO2 ABG HCO3 ABG O2 Saturation ABG Base Excess FiO2 Sodium 138.8 Potassium 3.6 Chloride 106 Carbon Dioxide 27 Anion Gap 6 BUN 23 H Creatinine 0.70 Est GFR ( Amer) > 60 Est GFR (Non-Af Amer) > 60 Glucose 93 Calcium 9.0 Total Bilirubin AST ALT Alkaline Phosphatase Total Protein Albumin 07/23/18 07/23/18 03:31 04:40 WBC RBC Hgb Hct MCV MCH MCHC RDW Plt Count Seg Neutrophils % Lymphocytes % Monocytes % Eosinophils % Basophils % Absolute Neutrophils Absolute Lymphocytes Absolute Monocytes Absolute Eosinophils Absolute Basophils Carbonic Acid 1.15 HCO3/H2CO3 Ratio 24:1 ABG pH 7.48 H ABG pCO2 38.3 ABG pO2 94.8 ABG HCO3 27.8 H ABG O2 Saturation 97.7 ABG Base Excess 4.1 FiO2 30% Sodium 138.4 Potassium 3.5 L Chloride 106 Carbon Dioxide 27 Anion Gap 5 BUN 23 H Creatinine 0.79 Est GFR ( Amer) > 60 Est GFR (Non-Af Amer) > 60 Glucose 95 Calcium 8.4 Total Bilirubin 0.5 AST 19 ALT 47 Alkaline Phosphatase 37 L Total Protein 5.5 L Albumin 2.9 L 07/15/18 07/15/18 09:01 09:01 Creatine Kinase 364 H CK-MB (CK-2) 3.66 Troponin I < 0.012 Impressions: Soft Tissue Neck CT 07/15/18 00:00 IMPRESSION: NO SIGNIFICANT FINDING IN THE SOFT TISSUES OF THE NECK. MAXILLARY AND ETHMOID SINUS DISEASE. KUB X-Ray 07/22/18 12:19 IMPRESSION: Nasogastric tube tip in the body of the stomach. Chest X-Ray 07/23/18 06:00 IMPRESSION: No significant change. Assessment and Plan - Diagnosis (1) Status asthmaticus Qualifiers: Asthma severity: severe Asthma persistence: persistent Qualified Code(s): J45.52 - Severe persistent asthma with status asthmaticus Is this a current diagnosis for this admission?: Yes (2) Acute asthma exacerbation Qualifiers: Asthma severity: moderate Asthma persistence: persistent Qualified Code(s): J45.41 - Moderate persistent asthma with (acute) exacerbation Is this a current diagnosis for this admission?: Yes (3) Acute respiratory failure with hypoxia Is this a current diagnosis for this admission?: Yes Plan: 07/19/2018-currently remains intubated. We will move towards pressure support trials with the view to extubation especially since there was no wheezing today. 07/20/2018-patient remains intubated and sedated. We will institute weaning trials. 07/21/2018-we will try to 4-hour 1 dose of weaning today since he fatigued at 6 hours yesterday. If he does well then we may extubate tomorrow. 07/22/2018-the patient did well yesterday. We will try and wean to extubation today. 07/23/2018-after failing extubation yesterday the patient was reintubated. Repeat x-ray revealed no obvious infiltrate however when he was extubated there were copious amounts of secretions. Even after reintubation he had vomiting of copious mucus material. There was such force that the nasogastric tube was displaced. After reintubation he was rested on SIMV overnight. This morning he is exhibiting clear lungs. There has not been much in the way of endotracheal secretions. He is still having increased oral secretions. I have added a scopolamine patch to try and decrease secretions. Also, because of the events of yesterday and the high likelihood that he aspirated mucus or materials he is now on antibiotic therapy. He did spike a temperature yesterday after reintubation. Sputum culture is pending but the Gram stain showed 4+ white blood cells. We will again initiate for windows of weaning so was not to exhaust the patient. 07/23/2018 follow-up visit-I reviewed the patient's status with the nurse and respiratory therapist. His failed weaning trial could still be due to medication although we have been trying to decrease his medication slowly. The risk of decreased sedation has allowed some agitation previously. We will decrease the sedation and if the patient does become agitated we will use other medications to calm him but not overly sedate him. We will continue to try to w elle the Versed and Propofal and re-attempt weaning later today. (4) Tobacco dependency Is this a current diagnosis for this admission?: Yes (5) Hypokalemia Is this a current diagnosis for this admission?: Yes (6) Hypertension Is this a current diagnosis for this admission?: Yes (7) Aspiration pneumonia Qualifiers: Aspiration pneumonia type: unspecified Laterality: right Lung location: lower lobe of lung Qualified Code(s): J69.0 - Pneumonitis due to inhalation of food and vomit Is this a current diagnosis for this admission?: Yes Plan: 07/23/2018- The patient expelled copious amounts of mucus and secretions yesterday during the extubation trial and re-intubation. He spiked a temperature and exhibited an elevated WBC late yesterday. Because of the clinical situation, a sputum culture was obtained, as were blood cultures and he was started on broad spectrum antiobiotics. His sputum gram stain was positive for 4+ WBC. He is now afebrile and he will remain on antibiotics for the time being. If the sputum does not grow bacteria and the patient is stable then consider discontinuing antibiotic therapy. - Time Total Critical Time (Minutes): 25 - Reviewed failed weaning trial and reassessed treatment plan. Adjustments instituted. Medications reviewed and adjusted accordingly: Yes
[2018-07-23] MEDS ORDERED: POTASSIUM CHLORIDE 20 MEQ PACKET NG ONE (17:30)
[2018-07-23] MEDS: SENNOSIDES/DOCUSATE 8.6-50 MG 1 EACH TABLET NG SCH (21:33)
[2018-07-23 22:38] LABS: VANCOMYCIN,TROUGH 8.4 ug/mL (5.0-20.0)
[2018-07-24] MEDS: PROPOFOL 1,000 MG/100 ML INFUS..BTL IV PRN ×5 (00:26→21:29)
[2018-07-24] MEDS: NORMAL SALINE 1000 ML 1,000 ML IV PRN ×2 (00:26→21:30)
[2018-07-24] MEDS: MIDAZOLAM HCL 50 MG/100 ML RTUINJ IV PRN (01:40)
[2018-07-24] MEDS: METHYLPREDNISOLONE INJ 125 MG/2 ML SDV IV SCH ×3 (01:40→17:40)
[2018-07-24] MEDS: IPRATROPIUM/ALBUTEROL 0.5-2.5 MG/3 ML AMPUL NEB SCH ×4 (02:12→20:16)
[2018-07-24] MEDS: PIPERACILLIN SODIUM/TAZOBACTAM 3.375 GM in NORMAL SALINE 100 ML IV SCH ×4 (02:42→20:00)
[2018-07-24 04:35] LABS: ABSOLUTE LYMPHOCYTES (AUTO) 0.8 10^3/uL (0.5-4.7); ABSOLUTE MONOCYTES (AUTO) 0.9 10^3/uL (0.1-1.4); ABSOLUTE NEUT (AUTO) 7.6 10^3/uL (1.7-8.2); BASOPHILS % (AUTO) 0.1 % (0-2); EOSINOPHILS % (AUTO) 0.1 % (0-6); HEMATOCRIT 35.2 % (37.9-51.0); LYMPHOCYTES % (AUTO) 8.2 % (13-45); MEAN CORPUSCULAR HGB CONC 34.2 g/dL (32.0-36.0); MEAN CORPUSCULAR VOLUME 88 fl (80-97); MONOCYTES % (AUTO) 9.8 % (3-13); PLATELET COUNT 202 10^3/uL (150-450); RED BLOOD COUNT 4.02 10^6/uL (4.35-5.55); RED CELL DISTRIBUTION WIDTH 14.3 % (11.5-14.0); SEGMENTED NEUTROPHILS % (AUTO) 81.8 % (42-78); TOTAL CELLS COUNTED % (AUTO) 100 %; WHITE BLOOD COUNT 9.3 10^3/uL (4.0-10.5)
[2018-07-24 04:58] LABS: ANION GAP 6 (5-19); BLOOD UREA NITROGEN 20 mg/dL (7-20); CALCIUM 8.5 mg/dL (8.4-10.2); CARBON DIOXIDE 26 mmol/L (22-30); CHLORIDE 105 mmol/L (98-107); GLUCOSE 100 mg/dL (75-110); PHOSPHORUS 3.8 mg/dL (2.5-4.5); SODIUM 136.7 mmol/L (137-145)
[2018-07-24] MEDS: HEPARIN SOD (PORCINE) 5,000 UNIT/ML 1 ML SYRINGE SUBCUT SCH ×3 (05:23→21:30)
[2018-07-24] MEDS: PANTOPRAZOLE SODIUM 40 MG PACKET.DR NG SCH ×2 (05:23→17:40)
[2018-07-24] MEDS: VANCOMYCIN HCL 1,000 MG in DEXTROSE 5%-WATER 250 ML IV SCH (05:23)
[2018-07-24] MEDS: BUDESONIDE NEB 0.5 MG/2 ML AMPUL NEB SCH ×2 (08:08→20:16)
[2018-07-24 08:16] LABS: ARTERIAL BLOOD BASE EXCESS 3.3 mmol/L; ARTERIAL BLOOD H2CO3 1.28 mmol/L (1.05-1.35); ARTERIAL BLOOD HCO3 27.9 mmol/L (20-24); ARTERIAL BLOOD O2 SATURATION 96.2 % (94-98); ARTERIAL BLOOD PCO2 42.5 mmHg (35-45); ARTERIAL BLOOD PH 7.44 (7.35-7.45); ARTERIAL BLOOD PO2 80.5 mmHg (80-100); ARTERIAL BLOOD TOTAL CO2 29.2 mmol/L (23-27)
[2018-07-24 08:19] LABS: ARTERIAL BLOOD FIO2 30%
[2018-07-24] MEDS: MORPHINE SULFATE 10 MG/ML INJ IV PRN (08:35)
[2018-07-24] MEDS: DIPHENHYDRAMINE HCL 50 MG/ML VIAL IV PRN ×2 (10:33→15:50)
[2018-07-24] MEDS: LORATADINE 10 MG TABLET NG SCH (10:33)
[2018-07-24] MEDS: SERTRALINE HCL 50 MG TABLET NG SCH (10:33)
[2018-07-24] MEDS: MONTELUKAST SODIUM 10 MG TABLET NG SCH (10:33)
[2018-07-24] MEDS: GUAIFENESIN SYRP 200 MG/10 ML UDC NG SCH ×4 (10:34→21:28)
[2018-07-24] MEDS: NICOTINE 7 MG/24 HR PATCH.TD24 TD SCH (10:35)
[2018-07-24] MEDS: DOCUSATE SODIUM 100 MG/10 ML UDC NG SCH ×2 (10:35→17:55)
--- NOTE | 2018-07-24 11:30 | PDOC PROGRESS REPORT ---
Subjective Progress Note for:: 07/24/18 Subjective:: Attempted weaning of ventilation done today. Patient did not tolerate, became agitated and bronchospastic. Patient had done well for about 20 minutes, then heart rate went to 120, respiration 40s. Patient was started on sedation and was also given morphine. Resting comfortably at this time and remains on mechanical ventilation. Reason For Visit: ACUTE HYPOXIC RESPIRATORY FAILURE,STATUS Physical Exam Vital Signs: Temp Pulse Resp BP Pulse Ox 97.9 F 83 18 120/78 96 07/24/18 05:38 07/24/18 08:08 07/24/18 08:08 07/24/18 05:53 07/24/18 08:08 Intake & Output 07/23/18 07/24/18 07/25/18 06:59 06:59 06:59 Intake Total 2811 2562 454 Output Total 4066 3265 350 Balance -1254 -703 104 Weight 70.1 kg 67.9 kg GENERAL: Well-developed, no acute distress, lethargic HEENT: Normocephalic/atraumatic MOUT: Endotracheal tube in place NECK supple, no JVD CARDIOVASCULAR: RRR, normal S1-S2 LUNGS: CTA bilaterally, no rales, rhonchi, wheezes ABDOMEN: Soft, NT, NL bowel sounds EXTREMITIES: No edema, clubbing, cyanosis NEUROLOGICAL: Altered, lethargic at this time Results Laboratory Results: 07/24/18 03:19 07/24/18 03:19 07/23/18 07/24/18 07/24/18 21:45 03:19 03:19 WBC 9.3 RBC 4.02 L Hgb 12.0 L Hct 35.2 L MCV 88 MCH 30.0 MCHC 34.2 RDW 14.3 H Plt Count 202 Seg Neutrophils % 81.8 H Lymphocytes % 8.2 L Monocytes % 9.8 Eosinophils % 0.1 Basophils % 0.1 Absolute Neutrophils 7.6 Absolute Lymphocytes 0.8 Absolute Monocytes 0.9 Absolute Eosinophils 0.0 Absolute Basophils 0.0 Carbonic Acid HCO3/H2CO3 Ratio ABG pH ABG pCO2 ABG pO2 ABG HCO3 ABG O2 Saturation ABG Base Excess FiO2 Sodium 136.7 L Potassium 4.0 Chloride 105 Carbon Dioxide 26 Anion Gap 6 BUN 20 Creatinine 0.80 0.78 Est GFR ( Amer) > 60 > 60 Est GFR (Non-Af Amer) > 60 > 60 Glucose 100 Calcium 8.5 Phosphorus 3.8 Magnesium 2.5 H 07/24/18 08:00 WBC RBC Hgb Hct MCV MCH MCHC RDW Plt Count Seg Neutrophils % Lymphocytes % Monocytes % Eosinophils % Basophils % Absolute Neutrophils Absolute Lymphocytes Absolute Monocytes Absolute Eosinophils Absolute Basophils Carbonic Acid 1.28 HCO3/H2CO3 Ratio 21:1 ABG pH 7.44 ABG pCO2 42.5 ABG pO2 80.5 ABG HCO3 27.9 H ABG O2 Saturation 96.2 ABG Base Excess 3.3 FiO2 30% Sodium Potassium Chloride Carbon Dioxide Anion Gap BUN Creatinine Est GFR ( Amer) Est GFR (Non-Af Amer) Glucose Calcium Phosphorus Magnesium 07/15/18 07/15/18 09:01 09:01 Creatine Kinase 364 H CK-MB (CK-2) 3.66 Troponin I < 0.012 Impressions: Soft Tissue Neck CT 07/15/18 00:00 IMPRESSION: NO SIGNIFICANT FINDING IN THE SOFT TISSUES OF THE NECK. MAXILLARY AND ETHMOID SINUS DISEASE. KUB X-Ray 07/22/18 12:19 IMPRESSION: Nasogastric tube tip in the body of the stomach. Chest X-Ray 07/23/18 06:00 IMPRESSION: No significant change. Assessment and Plan - Diagnosis (1) Acute respiratory failure with hypoxia Is this a current diagnosis for this admission?: Yes Plan: 07/19/2018-currently remains intubated. We will move towards pressure support trials with the view to extubation especially since there was no wheezing today. 07/20/2018-patient remains intubated and sedated. We will institute weaning trials. 07/21/2018-we will try to 4-hour 1 dose of weaning today since he fatigued at 6 hours yesterday. If he does well then we may extubate tomorrow. 07/22/2018-the patient did well yesterday. We will try and wean to extubation today. 07/23/2018-after failing extubation yesterday the patient was reintubated. Repeat x-ray revealed no obvious infiltrate however when he was extubated there were copious amounts of secretions. Even after reintubation he had vomiting of copious mucus material. There was such force that the nasogastric tube was displaced. After reintubation he was rested on SIMV overnight. This morning he is exhibiting clear lungs. There has not been much in the way of endotracheal secretions. He is still having increased oral secretions. I have added a scopolamine patch to try and decrease secretions. Also, because of the events of yesterday and the high likelihood that he aspirated mucus or materials he is now on antibiotic therapy. He did spike a temperature yesterday after reintu bation. Sputum culture is pending but the Gram stain showed 4+ white blood cells. We will again initiate for windows of weaning so was not to exhaust the patient. 07/23/2018 follow-up visit-I reviewed the patient's status with the nurse and respiratory therapist. His failed weaning trial could still be due to medication although we have been trying to decrease his medication slowly. The risk of decreased sedation has allowed some agitation previously. We will decrease the sedation and if the patient does become agitated we will use other medications to calm him but not overly sedate him. We will continue to try to wean the Versed and Propofal and re-attempt weaning later today. 07/24/18--continue weaning trials and extubation as tolerated. (2) Aspiration pneumonia Qualifiers: Aspiration pneumonia type: unspecified Laterality: right Lung location: lower lobe of lung Qualified Code(s): J69.0 - Pneumonitis due to inhalation of food and vomit Is this a current diagnosis for this admission?: Yes Plan: 07/23/2018- The patient expelled copious amounts of mucus and secretions yesterday during the extubation trial and re-intubation. He spiked a temperature and exhibited an elevated WBC late yesterday. Because of the clinical situation, a sputum culture was obtained, as were blood cultures and he was started on broad spectrum antiobiotics. His sputum gram stain was positive for 4+ WBC. He is now afebrile and he will remain on antibiotics for the time being. If the sputum does not grow bacteria and the patient is stable then consider discontinuing antibiotic therapy. 07/24/18--blood cultures negative today, sputum culture pending. We will continue antibiotics with Vanco and Zosyn at this time. (3) Hypertension Is this a current diagnosis for this admission?: Yes Plan: 07/23/2018-the patient exhibited marked hypertension as well as tachycardia during the post extubation window. This was likely due to stress. He responded well to IV enalapril. He has several medications available as needed however his blood pressure has been stable. 07/24/18--continue to monitor (4) Acute asthma exacerbation Qualifiers: Asthma severity: moderate Asthma persistence: persistent Qualified Code(s): J45.41 - Moderate persistent asthma with (acute) exacerbation Is this a current diagnosis for this admission?: Yes Plan: As above 07/22/2018-as discussed with the patient's fianc he will need compliance with an outpatient regimen. He has already been intubated in October and again in July. 07/23/2018-the patient failed extubation yesterday. Now that he is reintubated, continue weaning trials as well as aggressive nebulizer treatments, steroids, montelukast and loratadine. 07/24/2018--failed extubation, will continue to monitor. (5) Hypokalemia Is this a current diagnosis for this admission?: Yes Plan: Currently resolved. Continue to monitor. (6) Tobacco dependency Is this a current diagnosis for this admission?: Yes Plan: 07/19/2018-I stressed to the patient's fianc that he needs to stop smoking. She also smokes and has agreed to stop smoking with him. We did apply a nicotine patch to the patient as well. 07/20/2018-nicotine patches in use. 07/21/2018-continue nicotine patch. As above 07/24--on nicotine patch, will need additional smoking cessation when off ventilation mental status resolved.
[2018-07-24] MEDS: VANCOMYCIN HCL 1,500 MG in DEXTROSE 5%-WATER 250 ML IV SCH ×2 (15:50→21:28)
[2018-07-24] MEDS: SENNOSIDES/DOCUSATE 8.6-50 MG 1 EACH TABLET NG SCH (21:28)
[2018-07-25] MEDS: METHYLPREDNISOLONE INJ 125 MG/2 ML SDV IV SCH ×2 (01:44→17:35)
[2018-07-25] MEDS: PROPOFOL 1,000 MG/100 ML INFUS..BTL IV PRN ×4 (01:44→21:56)
[2018-07-25] MEDS: IPRATROPIUM/ALBUTEROL 0.5-2.5 MG/3 ML AMPUL NEB SCH ×4 (02:32→21:02)
[2018-07-25] MEDS: PIPERACILLIN SODIUM/TAZOBACTAM 3.375 GM in NORMAL SALINE 100 ML IV SCH ×4 (03:02→20:03)
[2018-07-25 03:52] LABS: ABSOLUTE NEUT (AUTO) 8.8 10^3/uL (1.7-8.2); BASOPHILS % (AUTO) 0.2 % (0-2); EOSINOPHILS % (AUTO) 0.1 % (0-6); HEMATOCRIT 37.9 % (37.9-51.0); HEMOGLOBIN 12.7 g/dL (13.5-17.0); LYMPHOCYTES % (AUTO) 9.2 % (13-45); MEAN CORPUSCULAR HEMOGLOBIN 29.4 pg (27.0-33.4); MEAN CORPUSCULAR HGB CONC 33.6 g/dL (32.0-36.0); MEAN CORPUSCULAR VOLUME 88 fl (80-97); MONOCYTES % (AUTO) 9.4 % (3-13); PLATELET COUNT 207 10^3/uL (150-450); RED BLOOD COUNT 4.33 10^6/uL (4.35-5.55); RED CELL DISTRIBUTION WIDTH 14.2 % (11.5-14.0); SEGMENTED NEUTROPHILS % (AUTO) 81.1 % (42-78); TOTAL CELLS COUNTED % (AUTO) 100 %; WHITE BLOOD COUNT 10.9 10^3/uL (4.0-10.5)
[2018-07-25 04:13] LABS: ANION GAP 7 (5-19); BLOOD UREA NITROGEN 23 mg/dL (7-20); CALCIUM 8.9 mg/dL (8.4-10.2); CARBON DIOXIDE 27 mmol/L (22-30); CHLORIDE 103 mmol/L (98-107); GLUCOSE 104 mg/dL (75-110); POTASSIUM 4.1 mmol/L (3.6-5.0); SODIUM 136.9 mmol/L (137-145)
[2018-07-25] MEDS: HEPARIN SOD (PORCINE) 5,000 UNIT/ML 1 ML SYRINGE SUBCUT SCH ×3 (05:08→21:57)
[2018-07-25] MEDS: VANCOMYCIN HCL 1,500 MG in DEXTROSE 5%-WATER 250 ML IV SCH ×2 (05:08→13:53)
[2018-07-25] MEDS: PANTOPRAZOLE SODIUM 40 MG PACKET.DR NG SCH ×2 (05:08→17:35)
[2018-07-25] MEDS: BUDESONIDE NEB 0.5 MG/2 ML AMPUL NEB SCH ×2 (08:21→21:02)
[2018-07-25] MEDS: MONTELUKAST SODIUM 10 MG TABLET NG SCH (09:57)
[2018-07-25] MEDS: DOCUSATE SODIUM 100 MG/10 ML UDC NG SCH ×2 (09:57→17:33)
[2018-07-25] MEDS: NICOTINE 7 MG/24 HR PATCH.TD24 TD SCH (09:57)
[2018-07-25] MEDS: SERTRALINE HCL 50 MG TABLET NG SCH (09:57)
[2018-07-25] MEDS: LORATADINE 10 MG TABLET NG SCH (09:57)
[2018-07-25] MEDS: GUAIFENESIN SYRP 200 MG/10 ML UDC NG SCH ×4 (09:57→21:56)
[2018-07-25 14:15] LABS: VANCOMYCIN,TROUGH 13.5 ug/mL (5.0-20.0)
--- NOTE | 2018-07-25 15:35 | PDOC PROGRESS REPORT ---
Subjective Progress Note for:: 07/25/18 Subjective:: Patient failed extubation on 07/22/18. Attempted weaning of ventilation again tried yesterday, 07/24/18 but he did not tolerate, as he became agitated, tachypneic not tachycardic and bronchospastc. Patient was put back on sedation and also given morphine. Today, he remains on mechanical ventilation. He is on light sedation now and awake and following simple commands. Plan is to do another trial of weaning and possible extubation he is seems to do well. Reason For Visit: ACUTE HYPOXIC RESPIRATORY FAILURE,STATUS Physical Exam Vital Signs: Temp Pulse Resp BP Pulse Ox 97.7 F 68 15 93/60 L 99 07/25/18 05:17 07/25/18 08:25 07/25/18 08:25 07/25/18 05:53 07/25/18 08:25 Intake & Output 07/24/18 07/25/18 07/26/18 06:59 06:59 06:59 Intake Total 2562 2655 Output Total 3265 3125 Balance -703 -470 Weight 67.9 kg 67.5 kg GENERAL: Well-developed, no acute distress, intubated, awake HEENT: Normocephalic/atraumatic MOUT: Endotracheal tube in place NECK supple, no JVD CARDIOVASCULAR: RRR, normal S1-S2 LUNGS: CTA bilaterally, no rales, rhonchi, wheezes ABDOMEN: Soft, NT, NL bowel sounds EXTREMITIES: No edema, clubbing, cyanosis NEUROLOGICAL: Awake, following simple commands. Results Laboratory Results: 07/25/18 02:58 07/25/18 02:58 07/25/18 07/25/18 02:58 02:58 WBC 10.9 H RBC 4.33 L Hgb 12.7 L Hct 37.9 MCV 88 MCH 29.4 MCHC 33.6 RDW 14.2 H Plt Count 207 Seg Neutrophils % 81.1 H Lymphocytes % 9.2 L Monocytes % 9.4 Eosinophils % 0.1 Basophils % 0.2 Absolute Neutrophils 8.8 H Absolute Lymphocytes 1.0 Absolute Monocytes 1.0 Absolute Eosinophils 0.0 Absolute Basophils 0.0 Sodium 136.9 L Potassium 4.1 Chloride 103 Carbon Dioxide 27 Anion Gap 7 BUN 23 H Creatinine 0.68 Est GFR ( Amer) > 60 Est GFR (Non-Af Amer) > 60 Glucose 104 Calcium 8.9 07/15/18 07/15/18 09:01 09:01 Creatine Kinase 364 H CK-MB (CK-2) 3.66 Troponin I < 0.012 Impressions: Soft Tissue Neck CT 07/15/18 00:00 IMPRESSION: NO SIGNIFICANT FINDING IN THE SOFT TISSUES OF THE NECK. MAXILLARY AND ETHMOID SINUS DISEASE. KUB X-Ray 07/22/18 12:19 IMPRESSION: Nasogastric tube tip in the body of the stomach. Chest X-Ray 07/23/18 06:00 IMPRESSION: No significant change. Assessment and Plan - Diagnosis (1) Acute respiratory failure with hypoxia Is this a current diagnosis for this admission?: Yes Plan: 07/19/2018-currently remains intubated. We will move towards pressure support trials with the view to extubation especially since there was no wheezing today. 07/20/2018-patient remains intubated and sedated. We will institute weaning trials. 07/21/2018-we will try to 4-hour 1 dose of weaning today since he fatigued at 6 hours yesterday. If he does well then we may extubate tomorrow. 07/22/2018-the patient did well yesterday. We will try and wean to extubation today. 07/23/2018-after failing extubation yesterday the patient was reintubated. Repeat x-ray revealed no obvious infiltrate however when he was extubated there were copious amounts of secretions. Even after reintubation he had vomiting of copious mucus material. There was such force that the nasogastric tube was displaced. After reintubation he was rested on SIMV overnight. This morning he is exhibiting clear lungs. There has not been much in the way of endotracheal secretions. He is still having increased oral secretions. I have added a s copolamine patch to try and decrease secretions. Also, because of the events of yesterday and the high likelihood that he aspirated mucus or materials he is now on antibiotic therapy. He did spike a temperature yesterday after reintubation. Sputum culture is pending but the Gram stain showed 4+ white blood cells. We will again initiate for windows of weaning so was not to exhaust the patient. 07/23/2018 follow-up visit-I reviewed the patient's status with the nurse and respiratory therapist. His failed weaning trial could still be due to medication although we have been trying to decrease his medication slowly. The risk of decreased sedation has allowed some agitation previously. We will decrease the sedation and if the patient does become agitated we will use other medications to calm him but not overly sedate him. We will continue to try to wean the Versed and Propofal and re-attempt weaning later today. 07/24/18--continue weaning trials and extubation as tolerated. 07/25/18--we will continue trials of weaning and extubation as tolerated. He has been on Solu-Medrol 80 mg every 8 for 10 days. Will D presents to 80 mg every 12 hours. Please continue to wean steroids as tolerated. (2) Aspiration pneumonia Qualifiers: Aspiration pneumonia type: unspecified Laterality: right Lung location: lower lobe of lung Qualified Code(s): J69.0 - Pneumonitis due to inhalation of food and vomit Is this a current diagnosis for this admission?: Yes Plan: 07/23/2018- The patient expelled copious amounts of mucus and secretions yesterday during the extubation trial and re-intubation. He spiked a temperature and exhibited an elevated WBC late yesterday. Because of the clinical situation, a sputum culture was obtained, as were blood cultures and he was started on broad spectrum antiobiotics. His sputum gram stain was positive for 4+ WBC. He is now afebrile and he will remain on antibiotics for the time being. If the sputum does not grow bacteria and the patient is stable then consider discontinuing antibiotic therapy. 07/24/18--blood cultures negative today, sputum culture pending. We will con tinue antibiotics with Vanco and Zosyn at this time. 07/25/18--blood cultures negative to date, sputum culture grew normal respiratory william. We will de-escalate antibiotics by discontinuing Vanco but will continue Zosyn at this time to complete 7-day course. (3) Hypertension Is this a current diagnosis for this admission?: Yes Plan: 07/23/2018-the patient exhibited marked hypertension as well as tachycardia during the post extubation window. This was likely due to stress. He responded well to IV enalapril. He has several medications available as needed however his blood pressure has been stable. 07/24/18--continue to monitor 07/25/18--no change in management, continue to monitor (4) Acute asthma exacerbation Qualifiers: Asthma severity: moderate Asthma persistence: persistent Qualified Code(s): J45.41 - Moderate persistent asthma with (acute) exacerbation Is this a current diagnosis for this admission?: Yes Plan: As above 07/22/2018-as discussed with the patient's fianc he will need compliance with an outpatient regimen. He has already been intubated in October and again in July. 07/23/2018-the patient failed extubation yesterday. Now that he is reintubated, continue weaning trials as well as aggressive nebulizer treatments, steroids, montelukast and loratadine. 07/24/2018--failed extubation, will continue to monitor. 07/25/2018--failed extubation Wednesday07/22/18 and weaning yesterday, will continue to monitor. (5) Hypokalemia Is this a current diagnosis for this admission?: Yes Plan: Resolved. Continue to monitor. (6) Tobacco dependency Is this a current diagnosis for this admission?: Yes Plan: 07/19/2018-I stressed to the patient's fianc that he needs to stop smoking. She also smokes and has agreed to stop smoking with him. We did apply a nicotine patch to the patient as well. 07/20/2018-nicotine patches in use. 07/21/2018-continue nicotine patch. As above 07/24--on nicotine patch, will need additional smoking cessation when off ventilation mental status resolved. 07/25--on nicotine patch, he will need in addition smoking cessation when off ventilation mental status resolved.
[2018-07-25] MEDS: MORPHINE SULFATE 10 MG/ML INJ IV PRN (17:34)
[2018-07-25] MEDS: SENNOSIDES/DOCUSATE 8.6-50 MG 1 EACH TABLET NG SCH (21:55)
[2018-07-25] MEDS: DIPHENHYDRAMINE HCL 50 MG/ML VIAL IV PRN (22:52)
[2018-07-25] MEDS: NORMAL SALINE 1000 ML 1,000 ML IV PRN (22:53)
[2018-07-26] MEDS: MORPHINE SULFATE 10 MG/ML INJ IV PRN ×2 (01:37→11:04)
[2018-07-26] MEDS: IPRATROPIUM/ALBUTEROL 0.5-2.5 MG/3 ML AMPUL NEB SCH ×4 (02:22→20:34)
[2018-07-26] MEDS: PIPERACILLIN SODIUM/TAZOBACTAM 3.375 GM in NORMAL SALINE 100 ML IV SCH ×2 (03:08→09:11)
[2018-07-26 04:50] LABS: ARTERIAL BLOOD BASE EXCESS -1.5 mmol/L; ARTERIAL BLOOD FIO2 30%; ARTERIAL BLOOD H2CO3 1.17 mmol/L (1.05-1.35); ARTERIAL BLOOD HCO3 23.2 mmol/L (20-24); ARTERIAL BLOOD O2 SATURATION 98.1 % (94-98); ARTERIAL BLOOD PCO2 38.9 mmHg (35-45); ARTERIAL BLOOD PH 7.39 (7.35-7.45); ARTERIAL BLOOD PO2 111.9 mmHg (80-100); ARTERIAL BLOOD TOTAL CO2 24.4 mmol/L (23-27)
[2018-07-26] MEDS: PROPOFOL 1,000 MG/100 ML INFUS..BTL IV PRN (05:24)
[2018-07-26] MEDS: METHYLPREDNISOLONE INJ 125 MG/2 ML SDV IV SCH ×2 (05:25→17:05)
[2018-07-26] MEDS: HEPARIN SOD (PORCINE) 5,000 UNIT/ML 1 ML SYRINGE SUBCUT SCH ×3 (05:25→22:17)
[2018-07-26] MEDS: PANTOPRAZOLE SODIUM 40 MG PACKET.DR NG SCH (05:25)
[2018-07-26 05:27] LABS: ABSOLUTE LYMPHOCYTES (AUTO) 1.2 10^3/uL (0.5-4.7); ABSOLUTE MONOCYTES (AUTO) 1.1 10^3/uL (0.1-1.4); ABSOLUTE NEUT (AUTO) 8.6 10^3/uL (1.7-8.2); BASOPHILS % (AUTO) 0.2 % (0-2); HEMATOCRIT 35.7 % (37.9-51.0); HEMOGLOBIN 12.1 g/dL (13.5-17.0); MEAN CORPUSCULAR HEMOGLOBIN 29.6 pg (27.0-33.4); MEAN CORPUSCULAR VOLUME 87 fl (80-97); MONOCYTES % (AUTO) 9.8 % (3-13); PLATELET COUNT 208 10^3/uL (150-450); RED CELL DISTRIBUTION WIDTH 14.1 % (11.5-14.0); TOTAL CELLS COUNTED % (AUTO) 100 %; WHITE BLOOD COUNT 10.9 10^3/uL (4.0-10.5)
[2018-07-26 05:56] LABS: ANION GAP 6 (5-19); BLOOD UREA NITROGEN 20 mg/dL (7-20); CALCIUM 8.7 mg/dL (8.4-10.2); CARBON DIOXIDE 25 mmol/L (22-30); CHLORIDE 107 mmol/L (98-107); GLUCOSE 82 mg/dL (75-110); PHOSPHORUS 4.2 mg/dL (2.5-4.5); POTASSIUM 3.9 mmol/L (3.6-5.0); SODIUM 137.5 mmol/L (137-145)
--- NOTE | 2018-07-26 06:31 | RADIOLOGY REPORT (SQ) ---
EXAM DESCRIPTION: XR CHEST 1 VIEW COMPLETED DATE/TME: 07/26/2018 06:00 CLINICAL HISTORY: 38 years Male, ETT placement COMPARISON: 3 days prior. NUMBER OF VIEWS/TECHNIQUE: 1/AP FINDINGS: Clear lungs of adequate volume, and normal cardiac silhouette. Adequate appearing endotracheal tube. Adequate appearing enteric tube with tip at the left upper abdominal quadrant. No pneumothorax. Stable bony thorax. IMPRESSION: No significant change.
[2018-07-26] MEDS: BUDESONIDE NEB 0.5 MG/2 ML AMPUL NEB SCH ×2 (08:49→23:30)
[2018-07-26] MEDS ORDERED: ALBUTEROL SULFATE HFA (90 MCG/PUFF) 200 PUFF/8.5 GM MDI IH PRN (08:54)
[2018-07-26] MEDS ORDERED: ALBUTEROL SULFATE 0.083% NEB 2.5 MG/3 ML AMPUL NEB PRN (08:54)
[2018-07-26] MEDS ORDERED: LORAZEPAM INJ 2 MG/1 ML VIAL IV PRN (08:58)
[2018-07-26] MEDS: NICOTINE 7 MG/24 HR PATCH.TD24 TD SCH (09:09)
[2018-07-26] MEDS: SCOPOLAMINE HYDROBROMIDE 1.5 MG PATCH.TD72 TD SCH (09:09)
[2018-07-26] MEDS: SERTRALINE HCL 50 MG TABLET NG SCH (09:11)
[2018-07-26] MEDS: DOCUSATE SODIUM 100 MG/10 ML UDC NG SCH (09:11)
[2018-07-26] MEDS: GUAIFENESIN SYRP 200 MG/10 ML UDC NG SCH ×2 (09:11→13:43)
[2018-07-26] MEDS: MONTELUKAST SODIUM 10 MG TABLET NG SCH (09:11)
[2018-07-26] MEDS: LORATADINE 10 MG TABLET NG SCH (09:11)
--- NOTE | 2018-07-26 09:16 | PDOC PROGRESS REPORT ---
Subjective Progress Note for:: 07/26/18 Subjective:: 8-year-old male admitted with acute respiratory failure status post intubation. Plan is to try to wean him off from the ventilator today. He is on deprivan 20 mcg/kg/min is alert awake and responding to the verbal commands. No acute events in the last 24 hours. Patient is afebrile. Tracheal aspirate positive for staph aureus. Presently is on IV Zosyn. Reason For Visit: ACUTE HYPOXIC RESPIRATORY FAILURE,STATUS Physical Exam Vital Signs: Temp Pulse Resp BP Pulse Ox 97.9 F 59 L 10 L 112/66 98 07/26/18 08:00 07/26/18 08:50 07/26/18 08:50 07/26/18 08:00 07/26/18 08:50 Intake & Output 07/25/18 07/26/18 07/27/18 06:59 06:59 06:59 Intake Total 2905 1595 381 Output Total 3125 2655 350 Balance -220 -1060 31 Weight 67.5 kg 66.9 kg General appearance: PRESENT: no acute distress, other - On mechanical ventilator L at the fake responding to verbal commands. Head exam: PRESENT: atraumatic Eye exam: PRESENT: PERRLA Mouth exam: PRESENT: moist, tongue midline Neck exam: ABSENT: carotid bruit, JVD, lymphadenopathy, thyromegaly Respiratory exam: PRESENT: decreased breath sounds Cardiovascular exam: PRESENT: RRR. ABSENT: diastolic murmur, rubs, systolic murmur GI/Abdominal exam: PRESENT: normal bowel sounds, soft. ABSENT: distended, guarding, mass, organolmegaly, rebound, tenderness Rectal exam: PRESENT: deferred Gentrourinary exam: PRESENT: indwelling catheter Extremities exam: PRESENT: full ROM. ABSENT: calf tenderness, clubbing, pedal edema Neurological exam: PRESENT: alert, awake, oriented to person, oriented to place, oriented to time, oriented to situation, CN II-XII grossly intact. ABSENT: motor sensory deficit Psychiatric exam: PRESENT: appropriate affect, normal mood. ABSENT: homicidal ideation, suicidal ideation Results Laboratory Results: 07/26/18 03:55 07/26/18 03:55 07/25/18 07/26/18 07/26/18 13:41 03:55 03:55 WBC 10.9 H RBC 4.10 L Hgb 12.1 L Hct 35.7 L MCV 87 MCH 29.6 MCHC 34.0 RDW 14.1 H Plt Count 208 Seg Neutrophils % 79.0 H Lymphocytes % 11.0 L Monocytes % 9.8 Eosinophils % 0.0 Basophils % 0.2 Absolute Neutrophils 8.6 H Absolute Lymphocytes 1.2 Absolute Monocytes 1.1 Absolute Eosinophils 0.0 Absolute Basophils 0.0 Carbonic Acid HCO3/H2CO3 Ratio ABG pH ABG pCO2 ABG pO2 ABG HCO3 ABG O2 Saturation ABG Base Excess FiO2 Sodium 137.5 Potassium 3.9 Chloride 107 Carbon Dioxide 25 Anion Gap 6 BUN 20 Creatinine 0.72 0.83 Est GFR ( Amer) > 60 > 60 Est GFR (Non-Af Amer) > 60 > 60 Glucose 82 Calcium 8.7 Phosphorus 4.2 Magnesium 2.2 07/26/18 04:47 WBC RBC Hgb Hct MCV MCH MCHC RDW Plt Count Seg Neutrophils % Lymphocytes % Monocytes % Eosinophils % Basophils % Absolute Neutrophils Absolute Lymphocytes Absolute Monocytes Absolute Eosinophils Absolute Basophils Carbonic Acid 1.17 HCO3/H2CO3 Ratio 19:1 ABG pH 7.39 ABG pCO2 38.9 ABG pO2 111.9 H ABG HCO3 23.2 ABG O2 Saturation 98.1 H ABG Base Excess -1.5 FiO2 30% Sodium Potassium Chloride Carbon Dioxide Anion Gap BUN Creatinine Est GFR ( Amer) Est GFR (Non-Af Amer) Glucose Calcium Phosphorus Magnesium 07/22/18 02:10 Tracheal Aspirate Gram Stain - Final 07/22/18 02:10 Tracheal Aspirate Sputum Culture - Final Staphylococcus Aureus Reduced Normal William 07/15/18 07/15/18 09:01 09:01 Creatine Kinase 364 H CK-MB (CK-2) 3.66 Troponin I < 0.012 Impressions: Soft Tissue Neck CT 07/15/18 00:00 IMPRESSION: NO SIGNIFICANT FINDING IN THE SOFT TISSUES OF THE NECK. MAXILLARY AND ETHMOID SINUS DISEASE. KUB X-Ray 07/22/18 12:19 IMPRESSION: Nasogastric tube tip in the body of the stomach. Chest X-Ray 07/26/18 06:00 IMPRESSION: No significant change. Assessment and Plan - Diagnosis (1) Acute respiratory failure with hypoxia Is this a current diagnosis for this admission?: Yes Plan: 07/19/2018-currently remains intubated. We will move towards pressure support trials with the view to extubation especially since there was no wheezing today. 07/20/2018-patient remains intubated and sedated. We will institute weaning trials. 07/21/2018-we will try to 4-hour 1 dose of weaning today since he fatigued at 6 hours yesterday. If he does well then we may extubate tomorrow. 07/22/2018-the patient did well yesterday. We will try and wean to extubation today. 07/23/2018-after failing extubation yesterday the patient was reintubated. Repeat x-ray revealed no obvious infiltrate however when he was extubated there were copious amounts of secretions. Even after reintubation he had vomiting of copious mucus material. There was such force that the nasogastric tube was displaced. After reintubation he was rested on SIMV overnight. This morning he is exhibiting clear lungs. There has not been much in the way of endotracheal secretions. He is still having increased oral secretions. I have added a s copolamine patch to try and decrease secretions. Also, because of the events of yesterday and the high likelihood that he aspirated mucus or materials he is now on antibiotic therapy. He did spike a temperature yesterday after reintubation. Sputum culture is pending but the Gram stain showed 4+ white blood cells. We will again initiate for windows of weaning so was not to exhaust the patient. 07/23/2018 follow-up visit-I reviewed the patient's status with the nurse and respiratory therapist. His failed weaning trial could still be due to medication although we have been trying to decrease his medication slowly. The risk of decreased sedation has allowed some agitation previously. We will decrease the sedation and if the patient does become agitated we will use other medications to calm him but not overly sedate him. We will continue to try to wean the Versed and Propofal and re-attempt weaning later today. 07/24/18--continue weaning trials and extubation as tolerated. 07/25/18--we will continue trials of weaning and extubation as tolerated. He has been on Solu-Medrol 80 mg every 8 for 10 days. Will D presents to 80 mg every 12 hours. Please continue to wean steroids as tolerated. 07/26/[id number]-mbip-old male admitted for acute respiratory failure with hypoxia. We will try to wean him off today. He is going to be given a Decadron 80 mg IV 1 dose, Ativan 1 mg IV every 4 as needed for agitation, to give a racemic epinephrine nebulization one-time during the extubation. Patient's ABG today and 30% oxygen pH is 7.39/PCO2 39 PO2 112 oxygen saturation is 98%. He is on a regular as needed nebulizations and also on IV Solu-Medrol 80 mg every 12 hours. Plan is to decrease Solu-Medrol to 40 mg iv twice a day. (2) Acute asthma exacerbation Qualifiers: Asthma severity: moderate Asthma persistence: persistent Qualified Code(s): J45.41 - Moderate persistent asthma with (acute) exacerbation Is this a current diagnosis for this admission?: Yes Plan: As above 07/22/2018-as discussed with the patient's fianc he will need compliance with an outpatient regimen. He has already been intubated in October and again in July. 07/23/2018-the patient failed extubation yesterday. Now that he is reintubated, continue weaning trials as well as aggressive nebulizer treatments, steroids, montelukast and loratadine. 07/24/2018--failed extubation, will continue to monitor. 07/25/2018--failed extubation Wednesday07/22/18 and weaning yesterday, will continue to monitor. 07/26/[id number]-pqpz-old male with history of asthma admitted for acute exacerbation of asthma status post intubation. Plan to extubate him today. Weaning protocol is initiated. Combination chest bilateral entry was decreased no wheezing no crepitations present. pulse on 30% oxygen is 98%. (3) Hypertension Is this a current diagnosis for this admission?: Yes Plan: 07/23/2018-the patient exhibited marked hypertension as well as tachycardia during the post extubation window. This was likely due to stress. He responded well to IV enalapril. He has several medications available as needed however his blood pressure has been stable. 07/24/18--continue to monitor 07/25/18--no change in management, continue to monitor 07/26/2018-patient blood pressure today is 110/64. Gently on enalaprilat 0.625 mg IV every 6 as needed, hydralazine 10 mg IV every 6 as needed, metoprolol 5 mg IV every 6 as needed. Enalaprilat is discontinued today. Plan is to discontinue his IV fluids because most likely patient is going to be extubated and will start him on oral feeding. (4) Hypokalemia Is this a current diagnosis for this admission?: Yes Plan: Resolved. Continue to monitor. 07/26/2018-serum potassium level today is 3.9. Hypokalemia is resolved. (5) Aspiration pneumonia Qualifiers: Aspiration pneumonia type: unspecified Laterality: right Lung location: lower lobe of lung Qualified Code(s): J69.0 - Pneumonitis due to inhalation of food and vomit Is this a current diagnosis for this admission?: Yes Plan: 07/23/2018- The patient expelled copious amounts of mucus and secretions yesterday during the extubation trial and re-intubation. He spiked a temperature and exhibited an elevated WBC late yesterday. Because of the clinical situation, a sputum culture was obtained, as were blood cultures and he was started on broad spectrum antiobiotics. His sputum gram stain was positive for 4+ WBC. He is now afebrile and he will remain on antibiotics for the time being. If the sputum does not grow bacteria and the patient is stable then consider discontinuing antibiotic therapy. 07/24/18--blood cultures negative today, sputum culture pending. We will continue antibiotics with Vanco and Zosyn at this time. 07/25/18--blood cultures negative to date, sputum culture grew normal respiratory william. We will de-escalate antibiotics by discontinuing Vanco but will continue Zosyn at this time to complete 7-day course. 2018-blood cultures are negative sputum culture shows staph aureus. Presently on IV Zosyn. Most likely had aspiration pneumonia due to gram- positive organisms and plan is to switch Zosyn to IV levofloxacillin 750 mg daily. (6) Status asthmaticus Qualifiers: Asthma severity: severe Asthma persistence: persistent Qualified Code(s): J45.52 - Severe persistent asthma with status asthmaticus Is this a current diagnosis for this admission?: Yes Plan: 07/19/2018-the patient required intubation and is on high-dose steroids. He is on antibiotics as well. As noted above he tends to be very sensitive to the endotracheal tube and gets quite agitated while attempting pressure support trials. He may need a relatively short trial with extubation. Consider ad ditional medications if needed. The patient does not have a prescription plan and is running out of medications. I explained to his fiance that we will try and work with a local pharmacy to find the most affordable regimen that treats his symptoms. 07/20/2018-the patient remains on 80 mg of Solu-Medrol every 8 hours. I have added montelukast 10 mg daily. He is also on duo nebs and Pulmicort nebulizer treatments with Xopenex available as needed. He still has faint wheezes. We will begin to lighten his sedation and wean the patient. His most recent hospitalization with intubation in October revealed agitation during weaning. We may wean in intermittent windows if this occurs. 07/21/2018-the patient lasted 6 hours on pressure support last night and then had to return to SIMV. We will try for our windows of weaning today. As noted above he may likely need to have a very short trial and be extubated because of his reaction to decreased sedation. He has only intermittent wheezing today. Continue current regimen. 07/22/2018-hardly any wheezes today. We will wean from sedation and likely be able to extubate the patient. Continue steroids and inhaler regimen as well as antihistamines July 23, 2018-the patient failed extubation yesterday. He appears to be comfortable for several minutes but then began having shortness of breath. He was using accessory muscles. He needed support with the bag mask valve to maintain saturations. Once it was clear that he would not tolerate being extubated anesthesia was able to reintubate the patient. He was returned to his previous regimen of steroids and inhaler therapy and was placed back on SIMV. 07/26/[id number]-msks-old male with history of asthma admitted with status asthmaticus status post intubation. Plan to extubate him today presently on IV Solu-Medrol 80 mg every 12 hours dose was decreased to 40 mg IV every 12 hours and plan to continue scheduled and as needed nebulizations. On examination patient is not in distress alert and awake responding to the verbal commands but still on mechanical ventilation chest bilateral entry was decreased no wheezing no crepitations. Hopefully we can extubate him today. - Time Time Spent with patient: 25-34 minutes Medications reviewed and adjusted accordingly: Yes Anticipated discharge: Home
[2018-07-26] MEDS ORDERED: RACEPINEPHRINE HCL 2.25% NEB 0.5 ML AMPUL NEB ONE (09:30)
[2018-07-26] MEDS ORDERED: LEVOFLOXACIN 750 MG/D5W RTU 750 MG/150 ML RTUPB IV ONE (10:00)
[2018-07-26] MEDS ORDERED: DEXAMETHASONE SOD PHOSPHATE INJ 4 MG/1 ML VIAL IV ONE (10:00)
[2018-07-26] MEDS: GUAIFENESIN SYRP 200 MG/10 ML UDC PO SCH ×2 (17:05→22:18)
[2018-07-26] MEDS: DOCUSATE SODIUM 100 MG/10 ML UDC PO SCH (17:05)
[2018-07-26] MEDS: PANTOPRAZOLE SODIUM 40 MG PACKET.DR PO SCH (17:06)
[2018-07-26] MEDS ORDERED: SENNOSIDES/DOCUSATE 8.6-50 MG 1 EACH TABLET PO SCH (22:00)
[2018-07-27] MEDS: IPRATROPIUM/ALBUTEROL 0.5-2.5 MG/3 ML AMPUL NEB SCH ×4 (02:19→20:46)
[2018-07-27 05:02] LABS: ARTERIAL BLOOD BASE EXCESS 2.9 mmol/L; ARTERIAL BLOOD FIO2 ROOM AIR; ARTERIAL BLOOD H2CO3 1.26 mmol/L (1.05-1.35); ARTERIAL BLOOD HCO3 27.4 mmol/L (20-24); ARTERIAL BLOOD PCO2 41.7 mmHg (35-45); ARTERIAL BLOOD PH 7.44 (7.35-7.45); ARTERIAL BLOOD PO2 89.1 mmHg (80-100); ARTERIAL BLOOD TOTAL CO2 28.7 mmol/L (23-27)
[2018-07-27] MEDS: METHYLPREDNISOLONE INJ 125 MG/2 ML SDV IV SCH (05:32)
[2018-07-27] MEDS: HEPARIN SOD (PORCINE) 5,000 UNIT/ML 1 ML SYRINGE SUBCUT SCH ×3 (05:33→22:01)
[2018-07-27] MEDS: PANTOPRAZOLE SODIUM 40 MG PACKET.DR PO SCH (05:33)
[2018-07-27 05:48] LABS: HEMATOCRIT 38.2 % (37.9-51.0); HEMOGLOBIN 12.8 g/dL (13.5-17.0); MEAN CORPUSCULAR HEMOGLOBIN 29.1 pg (27.0-33.4); MEAN CORPUSCULAR HGB CONC 33.6 g/dL (32.0-36.0); MEAN CORPUSCULAR VOLUME 87 fl (80-97); PLATELET COUNT 237 10^3/uL (150-450); RED BLOOD COUNT 4.41 10^6/uL (4.35-5.55); RED CELL DISTRIBUTION WIDTH 13.9 % (11.5-14.0); WHITE BLOOD COUNT 13.4 10^3/uL (4.0-10.5)
[2018-07-27 06:14] LABS: ALANINE AMINOTRANSFERASE 45 U/L (21-72); ALBUMIN 3.1 g/dL (3.5-5.0); ALKALINE PHOSPHATASE 38 U/L (38-126); ANION GAP 6 (5-19); ASPARTATE AMINO TRANSFERASE 14 U/L (17-59); BILIRUBIN,DIRECT 0.2 mg/dL (0.0-0.4); BILIRUBIN,TOTAL 0.5 mg/dL (0.2-1.3); BLOOD UREA NITROGEN 20 mg/dL (7-20); CARBON DIOXIDE 25 mmol/L (22-30); CHLORIDE 105 mmol/L (98-107); GLUCOSE 87 mg/dL (75-110); POTASSIUM 3.3 mmol/L (3.6-5.0); SODIUM 135.6 mmol/L (137-145); TOTAL PROTEIN 5.7 g/dL (6.3-8.2)
[2018-07-27 06:15] LABS: ABSOLUTE LYMPHOCYTES# (MANUAL) 2.8 10^3/uL (0.5-4.7); ABSOLUTE NEUTROPHILS# (MANUAL) 8.6 10^3/uL (1.7-8.2); BASOPHILS % (MANUAL) 0 % (0-2); EOSINOPHILS % (MANUAL) 0 % (0-6); LYMPHOCYTES % (MANUAL) 21 % (13-45); MONOCYTES % (MANUAL) 15 % (3-13); PLATELET COMMENT ADEQUATE; RBC MORPHOLOGY COMMENT NORMO-CYTIC/CHROMIC; SEGMENTED NEUTROPHILS % (MAN) 64 % (42-78); TOTAL CELLS COUNTED 100
[2018-07-27] MEDS ORDERED: POTASSIUM CHLORIDE 10 MEQ CAPSULE.ER PO ONE (08:27)
[2018-07-27] MEDS: BUDESONIDE NEB 0.5 MG/2 ML AMPUL NEB SCH ×2 (08:30→20:46)
[2018-07-27] MEDS: GUAIFENESIN SYRP 200 MG/10 ML UDC PO SCH ×4 (09:15→22:01)
[2018-07-27] MEDS: NICOTINE 7 MG/24 HR PATCH.TD24 TD SCH (09:16)
[2018-07-27] MEDS: DOCUSATE SODIUM 100 MG/10 ML UDC PO SCH ×2 (09:17→17:07)
--- NOTE | 2018-07-27 09:57 | PDOC PROGRESS REPORT ---
Subjective Progress Note for:: 07/27/18 Subjective:: 38-year-old male admitted with acute respiratory failure status post intubation. Plan is to try to wean him off from the ventilator today. He is on deprivan 20 mcg/kg/min is alert awake and responding to the verbal commands. No acute events in the last 24 hours. Patient is afebrile. Tracheal aspirate positive for staph aureus. Presently is on IV Zosyn. 07/27/[id number]-fhon-old male with history of asthma admitted for status asthmaticus with respiratory failure status post intubation and successful extubation yesterday. He is doing extremely well. Pulse ox is at 98 on room air. Patient is stable enough to go to the telemetry floor. No acute events in the last 24 hours. Patient is afebrile. Tracheal aspirate is positive for staph aureus presently on IV levofloxacin. Reason For Visit: ACUTE HYPOXIC RESPIRATORY FAILURE,STATUS Physical Exam Vital Signs: Temp Pulse Resp BP Pulse Ox 98.8 F 64 20 141/92 H 98 07/27/18 08:00 07/27/18 08:00 07/27/18 08:00 07/27/18 08:00 07/27/18 08:00 Intake & Output 07/26/18 07/27/18 07/28/18 06:59 06:59 06:59 Intake Total 1595 1646 Output Total 2655 1960 120 Balance -1060 -314 -120 Weight 66.9 kg 68.6 kg General appearance: PRESENT: no acute distress Head exam: PRESENT: atraumatic Eye exam: PRESENT: PERRLA Mouth exam: PRESENT: moist, tongue midline Neck exam: ABSENT: carotid bruit, JVD, lymphadenopathy, thyromegaly Respiratory exam: PRESENT: decreased breath sounds Cardiovascular exam: PRESENT: RRR. ABSENT: diastolic murmur, rubs, systolic murmur GI/Abdominal exam: PRESENT: normal bowel sounds, soft. ABSENT: distended, guarding, mass, organolmegaly, rebound, tenderness Rectal exam: PRESENT: deferred Extremities exam: PRESENT: full ROM. ABSENT: calf tenderness, clubbing, pedal edema Neurological exam: PRESENT: alert, awake, oriented to person, oriented to place, oriented to time, oriented to situation, CN II-XII grossly intact. ABSENT: motor sensory deficit Psychiatric exam: PRESENT: appropriate affect, normal mood. ABSENT: homicidal ideation, suicidal ideation Results Laboratory Results: 07/27/18 05:25 07/27/18 05:25 07/27/18 07/27/18 07/27/18 05:00 05:25 05:25 WBC 13.4 H RBC 4.41 Hgb 12.8 L Hct 38.2 MCV 87 MCH 29.1 MCHC 33.6 RDW 13.9 Plt Count 237 Seg Neutrophils % Not Reportable Lymphocytes % Not Reportable Monocytes % Not Reportable Eosinophils % Not Reportable Basophils % Not Reportable Absolute Neutrophils Not Reportable Absolute Lymphocytes Not Reportable Absolute Monocytes Not Reportable Absolute Eosinophils Not Reportable Absolute Basophils Not Reportable Carbonic Acid 1.26 HCO3/H2CO3 Ratio 21:1 ABG pH 7.44 ABG pCO2 41.7 ABG pO2 89.1 ABG HCO3 27.4 H ABG O2 Saturation 97.0 ABG Base Excess 2.9 FiO2 ROOM AIR Sodium 135.6 L Potassium 3.3 L Chloride 105 Carbon Dioxide 25 Anion Gap 6 BUN 20 Creatinine 0.76 Est GFR ( Amer) > 60 Est GFR (Non-Af Amer) > 60 Glucose 87 Calcium 9.0 Magnesium 2.2 Total Bilirubin 0.5 AST 14 L ALT 45 Alkaline Phosphatase 38 Total Protein 5.7 L Albumin 3.1 L 07/22/18 02:10 Tracheal Aspirate Gram Stain - Final 07/22/18 02:10 Tracheal Aspirate Sputum Culture - Final Staphylococcus Aureus Reduced Normal William 07/15/18 07/15/18 09:01 09:01 Creatine Kinase 364 H CK-MB (CK-2) 3.66 Troponin I < 0.012 Impressions: Soft Tissue Neck CT 07/15/18 00:00 IMPRESSION: NO SIGNIFICANT FINDING IN THE SOFT TISSUES OF THE NECK. MAXILLARY AND ETHMOID SINUS DISEASE. KUB X-Ray 07/22/18 12:19 IMPRESSION: Nasogastric tube tip in the body of the stomach. Chest X-Ray 07/26/18 06:00 IMPRESSION: No significant change. Assessment and Plan - Diagnosis (1) Acute respiratory failure with hypoxia Is this a current diagnosis for this admission?: Yes Plan: 07/19/2018-currently remains intubated. We will move towards pressure support trials with the view to extubation especially since there was no wheezing today. 07/20/2018-patient remains intubated and sedated. We will institute weaning trials. 07/21/2018-we will try to 4-hour 1 dose of weaning today since he fatigued at 6 hours yesterday. If he does well then we may extubate tomorrow. 07/22/2018-the patient did well yesterday. We will try and wean to extubation today. 07/23/2018-after failing extubation yesterday the patient was reintubated. Repeat x-ray revealed no obvious infiltrate however when he was extubated there were copious amounts of secretions. Even after reintubation he had vomiting of copious mucus material. There was such force that the nasogastric tube was displaced. After reintubation he was rested on SIMV overnight. This morning he is exhibiting clear lungs. There has not been much in the way of endotracheal secretions. He is still having increased oral secretions. I have added a scopolamine patch to try and decrease secretions. Also, because of the events of yesterday and the high likelihood that he aspirated mucus or materials he is now on antibiotic therapy. He did spike a temperature yesterday after reintubation. Sputum culture is pending but the Gram stain showed 4+ white blood cells. We will again initiate for windows of weaning so was not to exhaust the patient. 07/23/2018 follow-up visit-I reviewed the patient's status with the nurse and respiratory therapist. His failed weaning trial could still be due to med ication although we have been trying to decrease his medication slowly. The risk of decreased sedation has allowed some agitation previously. We will decrease the sedation and if the patient does become agitated we will use other medications to calm him but not overly sedate him. We will continue to try to wean the Versed and Propofal and re-attempt weaning later today. 07/24/18--continue weaning trials and extubation as tolerated. 07/25/18--we will continue trials of weaning and extubation as tolerated. He has been on Solu-Medrol 80 mg every 8 for 10 days. Will D presents to 80 mg every 1 2 hours. Please continue to wean steroids as tolerated. 07/26/[id number]-zhid-old male admitted for acute respiratory failure with hypoxia. We will try to wean him off today. He is going to be given a Decadron 80 mg IV 1 dose, Ativan 1 mg IV every 4 as needed for agitation, to give a racemic epinephrine nebulization one-time during the extubation. Patient's ABG today and 30% oxygen pH is 7.39/PCO2 39 PO2 112 oxygen saturation is 98%. He is on a regular as needed nebulizations and also on IV Solu-Medrol 80 mg every 12 hours. Plan is to decrease Solu-Medrol to 40 mg iv twice a day. 07/27/[id number]-sxae-old male admitted for status asthmaticus leading to acute respiratory failure with hypoxia status post intubation and successful extubation yesterday. Tracheal aspirate came back positive for staph aureus he was on IV levofloxacin. Pulse ox is 98% on room air patient is doing extremely well on examination chest bilateral entry was decreased no wheezing no crepitations present. Patient is downgraded to telemetry. (2) Acute asthma exacerbation Qualifiers: Asthma severity: moderate Asthma persistence: persistent Qualified Code(s): J45.41 - Moderate persistent asthma with (acute) exacerbation Is this a current diagnosis for this admission?: Yes Plan: As above 07/22/2018-as discussed with the patient's fianc he will need compliance with an outpatient regimen. He has already been intubated in October and again in July. 07/23/2018-the patient failed extubation yesterday. Now that he is reintubated, continue weaning trials as well as aggressive nebulizer treatments, steroids, montelukast and loratadine. 07/24/2018--failed extubation, will continue to monitor. 07/25/2018--failed extubation Wednesday07/22/18 and weaning yesterday, will continue to monitor. 07/26/[id number]-tcxs-old male with history of asthma admitted for acute ex acerbation of asthma status post intubation. Plan to extubate him today. Weaning protocol is initiated. Combination chest bilateral entry was decreased no wheezing no crepitations present. pulse on 30% oxygen is 98%. 07/27/[id number]-hlhi-old male with history of asthma admitted for asthma exacerba tion leading to status asthmaticus status post intubation and extubation he is doing extremely well. Patient is downgraded to telemetry. Probably he can go home tomorrow if everything is okay. (3) Hypertension Is this a current diagnosis for this admission?: Yes Plan: 07/23/2018-the patient exhibited marked hypertension as well as tachycardia during the post extubation window. This was likely due to stress. He responded well to IV enalapril. He has several medications available as needed however his blood pressure has been stable. 07/24/18--continue to monitor 07/25/18--no change in management, continue to monitor 07/26/2018-patient blood pressure today is 110/64. presently on enalaprilat 0.625 mg IV every 6 as needed, hydralazine 10 mg IV every 6 as needed, metoprolol 5 mg IV every 6 as needed. Enalaprilat is discontinued today. Plan is to discontinue his IV fluids because most likely patient is going to be e xtubated and will start him on oral feeding. 07/27/2018-patient blood pressure today is 131/80. Controlled. Hydralazine IV as needed is discontinued. Plan is to check the blood pressures every shift. (4) Hypokalemia Is this a current diagnosis for this admission?: Yes Plan: Resolved. Continue to monitor. 07/26/2018-serum potassium level today is 3.9. Hypokalemia is resolved. 07/27/2018-serum potassium level is 3.3 today and potassium supplementation was given. (5) Aspiration pneumonia Qualifiers: Aspiration pneumonia type: unspecified Laterality: right Lung location: lower lobe of lung Qualified Code(s): J69.0 - Pneumonitis due to inhalation of food and vomit Is this a current diagnosis for this admission?: Yes Plan: 07/23/2018- The patient expelled copious amounts of mucus and secretions yesterday during the extubation trial and re-intubation. He spiked a temperature and exhibited an elevated WBC late yesterday. Because of the clinical situation, a sputum culture was obtained, as were blood cultures and he was started on broad spectrum antiobiotics. His sputum gram stain was positive for 4+ WBC. He is now afebrile and he will remain on antibiotics for the time being. If the sputum does not grow bacteria and the patient is stable then consider discontinuing antibiotic therapy. 07/24/18--blood cultures negative today, sputum culture pending. We will continue antibiotics with Vanco and Zosyn at this time. 07/25/18--blood cultures negative to date, sputum culture grew normal respiratory william. We will de-escalate antibiotics by discontinuing Vanco but will continue Zosyn at this time to complete 7-day course. 07/26/2018-blood cultures are negative sputum culture shows staph aureus. Presently on IV Zosyn. Most likely had aspiration pneumonia due to gram- positive organisms and plan is to switch Zosyn to IV levofloxacillin 750 mg daily. 07/27/2018-sputum culture positive for staph areas presently on IV levo floxac illin patient is afebrile asymptomatic. (6) Status asthmaticus Qualifiers: Asthma severity: severe Asthma persistence: persistent Qualified Code(s): J45.52 - Severe persistent asthma with status asthmaticus Is this a current diagnosis for this admission?: Yes Plan: 07/19/2018-the patient required intubation and is on high-dose steroids. He is on antibiotics as well. As noted above he tends to be very sensitive to the endotracheal tube and gets quite agitated while attempting pressure support trials. He may need a relatively short trial with extubation. Consider additional medications if needed. The patient does not have a prescription plan and is running out of medications. I explained to his fiance that we will try and work with a local pharmacy to find the most affordable regimen that treats his symptoms. 07/20/2018-the patient remains on 80 mg of Solu-Medrol every 8 hours. I have added montelukast 10 mg daily. He is also on duo nebs and Pulmicort nebulizer treatments with Xopenex available as needed. He still has faint wheezes. We will begin to lighten his sedation and wean the patient. His most recent hospitalization with intubation in October revealed agitation during weaning. We may wean in intermittent windows if this occurs. 07/21/2018-the patient lasted 6 hours on pressure support last night and then [facility] We will try for our windows of weaning today. As noted above he may likely need to have a very short trial and be extubated because of his reaction to decreased sedation. He has only intermittent wheezing today. Continue current regimen. 07/22/2018-hardly any wheezes today. We will wean from sedation and likely be able to extubate the patient. Continue steroids and inhaler regimen as well as antihistamines July 23, 2018-the patient failed extubation yesterday. He appears to be comfortable for several minutes but then began having shortness of breath. He was using accessory muscles. He needed support with the bag mask valve to maintain saturations. Once it was clear that he would not tolerate being extubated anesthesia was able to reintubate the patient. He was returned to his previous regimen of steroids and inhaler therapy and was placed back on SIMV. 07/26/[id number]-nsdv-old male with history of asthma admitted with status asthmaticus status post intubation. Plan to extubate him today presently on IV Solu-Medrol 80 mg every 12 hours dose was decreased to 40 mg IV every 12 hours and plan to continue scheduled and as needed nebulizations. On examination p osmaniient is not in distress alert and awake responding to the verbal commands but still on mechanical ventilation chest bilateral entry was decreased no wheezing no crepitations. Hopefully we can extubate him today. 07/27/2018-patient has history of asthma admitted for this status asthmaticus status post intubation and extubation. He is doing extremely well. Presently on IV Solu-Medrol 40 mg every 12 hours plan is to change to prednisone 10 mg p.o. twice daily. to continue scheduled and as needed nebulizations. - Time Time Spent with patient: 15-24 minutes Medications reviewed and adjusted accordingly: Yes Anticipated discharge: Home
[2018-07-27] MEDS ORDERED: LORATADINE 10 MG TABLET PO SCH (10:00)
[2018-07-27] MEDS ORDERED: SERTRALINE HCL 50 MG TABLET PO SCH (10:00)
[2018-07-27] MEDS ORDERED: MONTELUKAST SODIUM 10 MG TABLET PO SCH (10:00)
[2018-07-27] MEDS ORDERED: PANTOPRAZOLE SODIUM 40 MG PACKET.DR PO SCH (10:00)
[2018-07-27] MEDS: PREDNISONE 10 MG TABLET PO SCH ×2 (10:42→17:06)
[2018-07-28] MEDS: IPRATROPIUM/ALBUTEROL 0.5-2.5 MG/3 ML AMPUL NEB SCH ×2 (02:05→08:12)
[2018-07-28 04:19] LABS: HEMATOCRIT 38.6 % (37.9-51.0); HEMOGLOBIN 12.9 g/dL (13.5-17.0); MEAN CORPUSCULAR HEMOGLOBIN 29.6 pg (27.0-33.4); MEAN CORPUSCULAR HGB CONC 33.5 g/dL (32.0-36.0); MEAN CORPUSCULAR VOLUME 88 fl (80-97); PLATELET COUNT 256 10^3/uL (150-450); RED BLOOD COUNT 4.38 10^6/uL (4.35-5.55); RED CELL DISTRIBUTION WIDTH 13.9 % (11.5-14.0); WHITE BLOOD COUNT 14.2 10^3/uL (4.0-10.5)
[2018-07-28 04:39] LABS: ALANINE AMINOTRANSFERASE 49 U/L (21-72); ALBUMIN 3.2 g/dL (3.5-5.0); ALKALINE PHOSPHATASE 39 U/L (38-126); ANION GAP 7 (5-19); ASPARTATE AMINO TRANSFERASE 14 U/L (17-59); BILIRUBIN,DIRECT 0.3 mg/dL (0.0-0.4); BILIRUBIN,TOTAL 0.5 mg/dL (0.2-1.3); BLOOD UREA NITROGEN 18 mg/dL (7-20); CARBON DIOXIDE 25 mmol/L (22-30); CHLORIDE 106 mmol/L (98-107); GLUCOSE 85 mg/dL (75-110); POTASSIUM 3.4 mmol/L (3.6-5.0); SODIUM 137.6 mmol/L (137-145); TOTAL PROTEIN 5.8 g/dL (6.3-8.2)
[2018-07-28 05:41] LABS: ABSOLUTE NEUTROPHILS# (MANUAL) 11.2 10^3/uL (1.7-8.2); BASOPHILS % (MANUAL) 0 % (0-2); EOSINOPHILS % (MANUAL) 0 % (0-6); HYPOCHROMASIA 1+; LYMPHOCYTES % (MANUAL) 14 % (13-45); MONOCYTES % (MANUAL) 7 % (3-13); PLATELET COMMENT ADEQUATE; ROULEAUX SLIGHT; SEGMENTED NEUTROPHILS % (MAN) 79 % (42-78); TOTAL CELLS COUNTED 100
[2018-07-28] MEDS: HEPARIN SOD (PORCINE) 5,000 UNIT/ML 1 ML SYRINGE SUBCUT SCH (06:15)
[2018-07-28] MEDS: BUDESONIDE NEB 0.5 MG/2 ML AMPUL NEB SCH (08:13)
--- NOTE | 2018-07-28 08:55 | PDOC DISCHARGE SUMMARY ---
General - Admit/Disc Date/PCP Admission Date/Primary Care Provider: 07/15/18 10:38 Discharge Date: 07/28/18 - Discharge Diagnosis (1) Acute respiratory failure with hypoxia and hypercapnia Is this a current diagnosis for this admission?: Yes Summary: Patient required intubation on ventilator a total of 5 days (2) Aspiration pneumonia Is this a current diagnosis for this admission?: Yes Summary: Aspirate grew staph. Treated with 7 days of IV levaquin (3) Hypokalemia Is this a current diagnosis for this admission?: Yes Summary: Repleted (4) Status asthmaticus Is this a current diagnosis for this admission?: Yes Summary: Treated with IV steroids, magnesium and ventilator. Using albuterol prn only prior to admission (5) Hypertension Is this a current diagnosis for this admission?: Yes Summary: Resolved post extubation (6) Tobacco dependency Is this a current diagnosis for this admission?: Yes Summary: Counseled - Additional Information Resuscitation Status: Full Code Discharge Diet: Regular Discharge Activity: Activity As Tolerated Prescriptions: Albuterol Sulfate [Proair HFA Inhalation Aerosol 8.5 gm MDI] 1 puff IH Q4HP PRN 30 Days #1 [email or web address] PRN Reason: WHEEZING/SHORTNESS OF BREATH Albuterol Sulfate [Ventolin 0.083% Neb 2.5 mg/3 mL Ampul] 2.5 mg NEB RTQ4HP PRN #90 [email or web address] PRN Reason: Shortness Of Breath Montelukast Sodium [Singulair 10 mg Tablet] 10 mg PO DAILY 30 Days #30 tablet Prednisone [Deltasone 10 mg Tablet] 10 mg PO BID 3 Days #6 tablet Home Medications: Albuterol Sulfate [Proair HFA Inhalation Aerosol 8.5 gm MDI] 1 puff IH Q4HP PRN 30 Days #1 [email or web address] 07/28/18 Albuterol Sulfate [Ventolin 0.083% Neb 2.5 mg/3 mL Ampul] 2.5 mg NEB RTQ4HP PRN #90 [email or web address] 07/28/18 Loratadine [Claritin 10 mg Tablet] 10 mg PO DAILY tablet 07/28/18 Montelukast Sodium [Singulair 10 mg Tablet] 10 mg PO DAILY 30 Days #30 tablet 07/28/18 Prednisone [Deltasone 10 mg Tablet] 10 mg PO BID 3 Days #6 tablet 07/28/18 History of Present Illness Patient complains of: Severe respiratory distress History of Present Illness: LUPE [place] is a 38 year old male Hospital Course Hospital Course: LUPE [place] is a 38 year old male who presented to the ER in respiratory distress. He has a history of pretty severe asthma. He was intubated about 6 months ago, and his fiance said is been intubated twice. 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 He does have to use bronchodilators at home. 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 He apparently did not wear it yesterday at work. He started having some shortness of breath last night and been using bronchodilators all night overnight, but apparently this happens to him all the time so he did not think anything of it at the time. His fiance said that he woke her up early this morning said he had to go to the hospital. She was getting ready to take him to the hospital but then he told her to call EMS because he did not think he was going to make it. EMS intubated him in the field. They brought him in he was oxygenating but he was still having a hard time moving air. The tube had to be repositioned in the ER and it was very difficult to get the tube into the correct position. He is being admitted to the hospitalist service and placed in the intensive care unit. Physical Exam Vital Signs: Temp Pulse Resp BP Pulse Ox 99.1 F 80 18 125/90 H 99 07/28/18 04:32 07/28/18 04:32 07/28/18 06:00 07/28/18 04:32 07/28/18 04:32 Intake & Output 07/27/18 07/28/18 07/29/18 06:59 06:59 06:59 Intake Total 1646 Output Total 5345 6152 Balance -314 -1670 Weight 68.6 kg 64.2 kg General appearance: PRESENT: no acute distress, thin, well-developed Head exam: PRESENT: atraumatic, normocephalic Eye exam: PRESENT: conjunctiva pink, EOMI, PERRLA. ABSENT: scleral icterus Ear exam: PRESENT: normal external ear exam Mouth exam: PRESENT: moist, tongue midline Neck exam: ABSENT: carotid bruit, JVD, lymphadenopathy, thyromegaly Respiratory exam: PRESENT: clear to auscultation fabi. ABSENT: rales, rhonchi, wheezes Cardiovascular exam: PRESENT: RRR. ABSENT: diastolic murmur, rubs, systolic murmur Pulses: PRESENT: normal dorsalis pedis pul Vascular exam: PRESENT: normal capillary refill GI/Abdominal exam: PRESENT: normal bowel sounds, soft. ABSENT: distended, guarding, mass, organolmegaly, rebound, tenderness Rectal exam: PRESENT: deferred Extremities exam: PRESENT: full ROM. ABSENT: calf tenderness, clubbing, pedal edema Neurological exam: PRESENT: alert, awake, oriented to person, oriented to place, oriented to time, oriented to situation, CN II-XII grossly intact. ABSENT: motor sensory deficit Psychiatric exam: PRESENT: appropriate affect, normal mood. ABSENT: homicidal ideation, suicidal ideation Skin exam: PRESENT: dry, intact, warm. ABSENT: cyanosis, rash Results Laboratory Results: 07/28/18 03:50 07/28/18 03:50 07/28/18 07/28/18 03:50 03:50 WBC 14.2 H RBC 4.38 Hgb 12.9 L Hct 38.6 MCV 88 MCH 29.6 MCHC 33.5 RDW 13.9 Plt Count 256 Seg Neutrophils % Not Reportable Lymphocytes % Not Reportable Monocytes % Not Reportable Eosinophils % Not Reportable Basophils % Not Reportable Absolute Neutrophils Not Reportable Absolute Lymphocytes Not Reportable Absolute Monocytes Not Reportable Absolute Eosinophils Not Reportable Absolute Basophils Not Reportable Sodium 137.6 Potassium 3.4 L Chloride 106 Carbon Dioxide 25 Anion Gap 7 BUN 18 Creatinine 0.80 Est GFR ( Amer) > 60 Est GFR (Non-Af Amer) > 60 Glucose 85 Calcium 9.0 Magnesium 2.1 Total Bilirubin 0.5 AST 14 L ALT 49 Alkaline Phosphatase 39 Total Protein 5.8 L Albumin 3.2 L 07/22/18 19:06 Blood Blood Culture - Final NO GROWTH IN 5 DAYS 07/22/18 19:00 Blood Blood Culture - Final NO GROWTH IN 5 DAYS 07/15/18 07/15/18 09:01 09:01 Creatine Kinase 364 H CK-MB (CK-2) 3.66 Troponin I < 0.012 Impressions: Soft Tissue Neck CT 07/15/18 00:00 IMPRESSION: NO SIGNIFICANT FINDING IN THE SOFT TISSUES OF THE NECK. MAXILLARY AND ETHMOID SINUS DISEASE. KUB X-Ray 07/22/18 12:19 IMPRESSION: Nasogastric tube tip in the body of the stomach. Chest X-Ray 07/26/18 06:00 IMPRESSION: No significant change. Qualifiers - * PATIENT BEING DISCHARGED WITH ANY OF THE FOLLOWING DIAGNOSIS: No Plan Discharge Plan: [facility]. He has no health insurance. He would benefit from inhaled steroid and follow up with pulmonary Time Spent: Less than 30 Minutes
[2018-07-28 09:06] VITALS: BP 110/66
== END 2018-07-28 09:14 | disposition home or self-care (01) | DRG 207 ==
LOC: ER 08:47 → EH 10:38 → ICU 11:44
PROVIDERS: ADMIT Family Medicine; ATTEND Family Medicine
PROC: 5A1955Z Respiratory Ventilation, Greater than 96 Consecutive Hours (ICD-10-PCS; principal; 2018-07-15)
PROC: 0BH17EZ Insertion of Endotracheal Airway into Trachea, Via Natural or Artificial Opening (ICD-10-PCS; 2018-07-15)
PROC: 0BH17EZ Insertion of Endotracheal Airway into Trachea, Via Natural or Artificial Opening (ICD-10-PCS; 2018-07-22)
DX: J45.52 Severe persistent asthma with status asthmaticus (principal); J96.01 Acute respiratory failure with hypoxia; J69.0 Pneumonitis due to inhalation of food and vomit; J15.211 Pneumonia due to Methicillin susceptible Staphylococcus aureus; J96.02 Acute respiratory failure with hypercapnia; I10 Essential (primary) hypertension; F17.200 Nicotine dependence, unspecified, uncomplicated; E87.6 Hypokalemia; Z78.1 Physical restraint status; Z59.7 Insufficient social insurance and welfare support; Z79.51 Long term (current) use of inhaled steroids; Z91.038 Other insect allergy status; Z91.011 Allergy to milk products; Z91.09 Other allergy status, other than to drugs and biological substances
CPT/HCPCS: 31500; 36415; 51702; 70491; 71045; 74018; 80048; 80053; 80202; 82550; 82553; 82565; 82803; 82962; 83605; 83735; 84100; 84484; 85025; 85610; 85730; 87040; 87070; 87077; 87186; 87205; 93005; 93010; 94002; 94003; 94640; 94660; 99291; B4155; C1758; J0360; J1100; J1200; J1630; J1644; J1956; J2060; J2250; J2270; J2543; J2704; J2930; J3370; J3490; J7030; J7060; J7120; J7512; J7620